=== PATIENT | male | born 1985 | race Caucasian/White ===

== ENCOUNTER 2017-11-28 10:07 | Inpatient (IN) | payer OTHER ==
[2017-11-28 10:36] VITALS: BMI 27.2
[2017-11-28] MEDS ORDERED: MAGNESIUM CITRATE 300 ML BOTTLE PO PRN (11:00)
[2017-11-28] MEDS ORDERED: ACETAMINOPHEN 325 MG TABLET (FP) PO PRN (11:00)
[2017-11-28] MEDS ORDERED: MENTHOL/PHENOL 1 EACH UD MM PRN (11:00)
[2017-11-28] MEDS ORDERED: MAG HYDROX/AL HYDROX/SIMETH 30 ML UNIT-DOSE CUP PO PRN (11:00)
[2017-11-28] MEDS ORDERED: hydrOXYzine PAMOATE 50 MG CAPSULE (FP) PO PRN (11:00)
[2017-11-28] MEDS ORDERED: IBUPROFEN 400 MG TABLET (FP) PO PRN (11:00)
[2017-11-28] MEDS ORDERED: P-EPHED 60MG/TRIPROLIDI 2.5MG TABLET PO PRN (11:00)
[2017-11-28] MEDS ORDERED: LOPERAMIDE HCL 2 MG CAPSULE PO PRN (11:00)
[2017-11-28] MEDS ORDERED: MAGNESIUM HYDROX 2400MG/30ML ORAL SUSPENSION 30 ML CUP PO PRN (11:00)
[2017-11-28] MEDS ORDERED: guaiFENesin/D-METHORPHAN HB 10 ML UNIT-DOSE CUPS PO PRN (11:00)
[2017-11-28] MEDS ORDERED: NICOTINE POLACRILEX 2 MG GUM BC PRN (11:00)
[2017-11-28] MEDS ORDERED: BENZOCAINE 20 % GEL 9 GM TUBE MM PRN (11:04)
--- NOTE | 2017-11-28 11:09 | HP ---
COWS - Scale Resting Pulse: 1= [place] 81-100 Sweatin=Flushed/Facial Moisture Restless Observation: 1= Difficult to Sit Still Pupil Size: 1= Pupils >than Normal Bone or Joint Aches: 2= Severe Diffuse Aches Runny Nose/ Eye Tearin= Runny Nose/Eyes GI Upset > 30mins: 2= Nausea/Diarrhea Tremor Observation: 1= Tremor [place], Not Seen Yawning Observation: 0= None Anxiety or Irritability: 1=Feels Anxious/Irritable Goose Flesh Skin: 0=Smooth Skin COWS Score: 13 Admission [facility] Chief Complaint: Heroin withdrawal symptoms Allergies/Adverse Reactions: Allergies Allergy/AdvReac Type Severity Reaction Status Date / Time No Known Allergies Allergy Verified 11/28/17 10:47 History of Present Illness: Patient present with heroin withdrawal symptoms. Patient started sniffing heroin at age 29 years of age. Sniffs 10 bags daily and also buys non- prescribed percocet 10/325mg. Takes 7-8 tabs of percocet daily. Last time he sniffed heroin was last evening at 7pm. Last time he took percocet was 2 days ago. Denies history of seizures. PMH includes depression, asthma, allergies and insomnia. Patient attempted detox in [facility] a few months ago. Relapsed one month after discharge. Denies SI/HI and suicide attempts. Exam Limitations: No Limitations - Ebola screening Have you traveled outside of the country in the last 21 days: No Have you had contact with anyone from an Ebola affected area: No Have you been sick,other than usual withdrawal symptoms: No Do you have a fever: No - Review of Systems Constitutional: Chills, Night Sweats, Changes in sleep EENT: reports: Nose Congestion, Mouth Pain (+toothache, no abscess or redness/ inflammation) Respiratory: reports: No Symptoms reported Cardiac: reports: No Symptoms Reported GI: reports: Nausea, Poor Appetite, Poor Fluid Intake, Abdominal cramping : reports: No Symptoms Reported Musculoskeletal: reports: Back Pain, Joint Pain, Muscle Pain Integumentary: reports: Flushing, Sweating Neuro: reports: Headache, Tremors Endocrine: reports: No Symptoms Reported Hematology: reports: No Symptoms Reported Psychiatric: reports: Orientated x3, Anxious, Depressed Patient History - Patient Medical History Hx Anemia: No Hx Asthma: Yes Hx Chronic Obstructive Pulmonary Disease (COPD): No Hx Cancer: No Hx Cardiac Disorders: No Hx Congestive Heart Failure: No Hx Hypertension: No Hx Hypercholesterolemia: No Hx Pacemaker: No HX Cerebrovascular Accident: No Hx Seizures: No Hx Dementia: No Hx Diabetes: No Hx Gastrointestinal Disorders: No Hx Liver Disease: No Hx Genitourinary Disorders: No Hx Sexually Transmitted Disorders: No Hx Renal Disease (ESRD): No Hx Thyroid Disease: No Hx Human Immunodeficiency Virus (HIV): No (refused testing, HIV test negative 2017) Hx Hepatitis C: No Hx Depression: Yes Hx Suicide Attempt: No Hx Bipolar Disorder: No Hx Schizophrenia: No - Patient Surgical History Past Surgical History: No - PPD History Previous Implant?: Yes Documented Results: Negative w/o proof Implanted On Prior [facility] Admission?: No PPD to be Administered?: Yes - Smoking Cessation Smoking history: Current every day smoker Have you smoked in the past 12 months: Yes Aproximately how many cigarettes per day: 20 Hx Chewing Tobacco Use: No Initiated information on smoking cessation: Yes 'Breaking Loose' booklet given: 11/28/17 - Substance & Tx. History Hx Alcohol Use: No Hx Substance Use: Yes Substance Use Type: Heroin, Opiates Hx Substance Use Treatment: Yes - Substances Abused Heroin Route: Inhalation Frequency: Daily Amount used: 10 BAGS Age of first use: 29 Date of Last Use: 11/27/17 PERCOCET Route: Oral Frequency: Daily Amount used: 8 10 MG PILLS Age of first use: 25 Date of Last Use: 11/26/17 Family Disease History - Family Disease History Family History: Denies Admission Physical Exam S - Vital Signs Vital Signs: Vital Signs - 24 hr 11/28/17 10:25 Temperature 98 F Pulse Rate 89 Respiratory 20 Rate Blood Pressure 121/79 - Physical General Appearance: Yes: No Apparent Distress, Nourished, Appropriately Dressed , Sweating, Anxious HEENTM: Yes: EOMI, Hearing grossly Normal, Normocephalic, Normal Voice, CAT[place], Pharynx Normal, Nasal Congestion Respiratory: Yes: Chest Non-Tender, Lungs Clear, Normal Breath Sounds, No Respiratory Distress, No Accessory Muscle Use Neck: Yes: No masses,lesions,Nodules, Supple Breast: Yes: Breast Exam Deferred Cardiology: Yes: Regular Rhythm, Regular Rate, S1, S2 Abdominal: Yes: Normal Bowel Sounds, Non Tender, Soft Genitourinary: Yes: Within Normal Limits Back: Yes: Normal Inspection, Muscle Spasm Musculoskeletal: Yes: Gait Steady, Back pain, Muscle Pain Extremities: Yes: Normal Capillary Refill, Normal Inspection, Normal Range of Motion, Non-Tender, Tremors Neurological: Yes: 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 intact, Fully Oriented, Alert, Motor Strength 5/5, Normal Response, Depressed Affect Integumentary: Yes: Normal Color, Warm, Moist Lymphatic: Yes: Within Normal Limits - Diagnostic (1) Opioid dependence with withdrawal Current Visit: Yes Status: Acute (2) Asthma Current Visit: Yes Status: Chronic Qualifiers: Asthma severity: mild Asthma complication type: unspecified (3) Nicotine dependence Current Visit: Yes Status: Chronic Qualifiers: Nicotine product type: cigarettes Substance use status: uncomplicated Qualified Code(s): F17.210 - Nicotine dependence, cigarettes, uncomplicated (4) Anxiety Current Visit: Yes Status: Suspected (5) Insomnia Current Visit: Yes Status: Suspected Qualifiers: Insomnia type: unspecified Qualified Code(s): G47.00 - Insomnia, unspecified (6) Depressed affect Current Visit: Yes Status: Suspected Cleared for Admission [facility] - Detox or Rehab [facility] Level of Care: Medically Managed Detox Regimen/Protocol: Methadone [facility] Breath Alcohol Content Breath Alcohol Content: 0 Urine Drug Screen - Results Drug Screen Negative: No Urine Drug Screen Results: OPI-Opiates, BZO-Benzodiazepines, MTD-Methadone, OXY- Oxycodone
[2017-11-28] MEDS ORDERED: METHADONE HCL 10 MG TABLET (FOR DETOX USE ONLY) PO ONE ×2 (12:00→23:00)
[2017-11-28] MEDS: diazePAM 5 MG TABLET PO PRN ×2 (12:38→19:24)
[2017-11-28] MEDS: FLUTICASONE PROP 0.05% 16 GM NASAL SPRAY NS SCH (12:46)
[2017-11-28 15:13] LABS: ALBUMIN 3.9 g/dl (3.4-5.0); ANION GAP 10 (8-16); BLOOD UREA NITROGEN 15 mg/dL (7-18); CALCIUM 9.2 mg/dL (8.5-10.1); CHLORIDE 104 mmol/L (98-107); CO2 24 mmol/L (21-32); GLUCOSE,RANDOM 122 mg/dL (74-106); POTASSIUM 4.7 mmol/L (3.5-5.1); SODIUM 138 mmol/L (136-145)
[2017-11-28 15:17] LABS: ALK PHOS 86 U/L (45-117); BILIRUBIN,TOTAL 0.7 mg/dL (0.2-1.0); CREATININE 0.8 mg/dL (0.7-1.3); SGOT/AST 26 U/L (15-37); SGPT/ALT 36 U/L (12-78); TOT PROT 7.5 g/dl (6.4-8.2)
[2017-11-28] MEDS: ALBUTEROL SO4 18 GM HFA INHALER IH PRN ×2 (15:29→19:11)
--- NOTE | 2017-11-28 15:38 | CONSULT ---
[facility] Psychiatric Consult - Data Date of interview: 11/28/17 Admission source: [facility] Identifying data: Patient is a 31 year old male, father of three, unemployed (collecting unemployment), and reside with his family. This is patient's first admission to detox at [facility]. Pt. admitted to for opiate dependence. Substance Abuse History: Smoking Cessation. Smoking history: Current every day smoker. Have you smoked in the past 12 months: Yes. Aproximately how many cigarettes per day: 20. Hx Chewing Tobacco Use: No. Initiated information on smoking cessation: Yes. 'Breaking Loose' booklet given: 11/28/17. - Substance & Tx. History. Hx Alcohol Use: No. Hx Substance Use: Yes. Substance Use Type : Heroin, Opiates. Hx Substance Use Treatment: Yes. - Substances Abused. Heroin. Route: Inhalation. Frequency: Daily. Amount used: 10 BAGS. Age of first use: 29. Date of Last Use: 11/27/17. PERCOCET. Route: Oral. Frequency: Daily. Amount used: 8 10 MG PILLS. Age of first use: 25. Date of Last Use: 11/26/17 Medical History: Asthma Psychiatric History: Pt. denies h/o psychiatric hospitalization, outpatient care , and suicide attempt. Pt. reports poor sleep. Physical/Sexual Abuse/Trauma History: Denies. Mental Status Exam - Mental Status Exam Alert and Oriented to: Time, Place, Person Cognitive Function: Good Patient Appearance: Well Groomed Mood: Hopeful Affect: Mood Congruent Patient Behavior: Cooperative Speech Pattern: Clear, Appropriate Voice Loudness: Normal Thought Process: Intact, Goal Oriented Thought Disorder: Not Present Hallucinations: Denies Suicidal Ideation: Denies Homicidal Ideation: Denies Insight/Judgement: Poor Sleep: Poorly Appetite: Fair Muscle strength/Tone: Normal Gait/Station: Normal Psychiatric Findings - Problem List ([place] 1, 2,3) (1) Substance-induced sleep disorder Current Visit: Yes Status: Acute (2) Opioid dependence with withdrawal Current Visit: Yes Status: Acute (3) Asthma Current Visit: Yes Status: Chronic Qualifiers: Asthma severity: mild Asthma complication type: unspecified (4) Nicotine dependence Current Visit: Yes Status: Chronic Qualifiers: Nicotine product type: cigarettes Substance use status: uncomplicated Qualified Code(s): F17.210 - Nicotine dependence, cigarettes, uncomplicated - Initial Treatment Plan Initial Treatment Plan: Psychoeducation provided. Detoxification in provided. Ambien 10mg qhs prn ordered. Benefits and side effects discussed. Pt. made aware of the risk of parasomnia when accepting ambien. Verbal consent given.
[2017-11-28 16:11] LABS: HEMATOCRIT 43.4 % (35.4-49); HEMOGLOBIN 14.2 GM/dL (11.7-16.9); MCH 28.7 pg (25.7-33.7); MCHC 32.8 g/dl (32.0-35.9); MEAN CELL VOLUME 87.6 fl (80-96); MEAN PLT VOLUME 8.3 fl (7.5-11.1); PLATELET COUNT 290 K/MM3 (134-434); RBC 4.95 M/mm3 (4.00-5.60); RDW 14.4 % (11.9-15.9); WHITE BLOOD COUNT 7.6 K/mm3 (4.0-10.0)
[2017-11-28] MEDS: ALBUTEROL SO4 0.083% IH SOL 2.5 MG/3 ML VIAL.NEB. NEB PRN (19:27)
[2017-11-28 19:47] LABS: URINE APPEARANCE CLEAR; URINE BILIRUBIN NEGATIVE (<2.0 mg/dL); URINE COLOR DKYELLOW; URINE GLUCOSE (UA) NEGATIVE (NEGATIVE); URINE KETONE NEGATIVE (NEGATIVE); URINE LEUK ESTERASE NEGATIVE (NEGATIVE); URINE NITRITE NEGATIVE (NEGATIVE); URINE PROTEIN NEGATIVE (NEGATIVE)
[2017-11-28] MEDS ORDERED: MELATONIN 5 MG TABLETS PO PRN (22:00)
[2017-11-28] MEDS: ZOLPIDEM TARTRATE 10 MG TABLET (PARK CARE ONLY) PO PRN (22:34)
[2017-11-28] MEDS: THIAMINE HCL 100 MG TABLET (FP) PO SCH (22:34)
[2017-11-29] MEDS: ALBUTEROL SO4 18 GM HFA INHALER IH PRN ×2 (01:16→22:30)
[2017-11-29] MEDS: diazePAM 5 MG TABLET PO PRN ×4 (01:25→20:12)
[2017-11-29] MEDS: ALBUTEROL SO4 0.083% IH SOL 2.5 MG/3 ML VIAL.NEB. NEB PRN ×2 (02:00→17:00)
[2017-11-29] MEDS ORDERED: METHADONE HCL 10 MG TABLET (FOR DETOX USE ONLY) PO ONE (10:00)
[2017-11-29] MEDS: FLUTICASONE PROP 0.05% 16 GM NASAL SPRAY NS SCH (10:12)
[2017-11-29] MEDS: PRENATAL VITAMINS W/ FOLIC ACID TABLET (FP) PO SCH (10:12)
[2017-11-29] MEDS: NICOTINE 21 MG/24 HOURS TOPICAL PATCH TD SCH (10:13)
[2017-11-29] MEDS ORDERED: cloNIDine HCL 0.1 MG TABLET PO ONE (13:42)
--- NOTE | 2017-11-29 16:41 | PN ---
BHS COWS - Scale Resting Pulse: 1= [place] 81-100 Sweatin= Chills/Flushing Restless Observation: 1= Difficult to Sit Still Pupil Size: 0= Normal to Room Light Bone or Joint Aches: 2= Severe Diffuse Aches Runny Nose/ Eye Tearin= Runny Nose/Eyes GI Upset > 30mins: 2= Nausea/Diarrhea Tremor Observation of Outstretched Hands: 2= Slight Tremor Visible Yawning Observation: 1= 1-2x During Session Anxiety or Irritability: 4=Extreme Anxiety Goose Flesh Skin: 0=Smooth Skin COWS Score: 16 BHS Progress Note (SOAP) Subjective: Interrupted Sleep, Diarrhea, Body Aches, Sweating, H/A, Tremors. Objective: PATIENT A & O X 3, OBSERVED AMBULATING ON UNIT. NO ACUTE DISTRESS. 11/29/17 16:40 Vital Signs Temperature 98.5 F 11/29/17 14:22 Pulse Rate 82 11/29/17 14:22 Respiratory Rate 20 11/29/17 14:22 Blood Pressure 123/80 11/29/17 14:22 O2 Sat by Pulse Oximetry (%) Laboratory Tests 11/28/17 11/28/17 11/28/17 11:13 11:13 11:13 WBC 7.6 RBC 4.95 Hgb 14.2 Hct 43.4 MCV 87.6 MCH 28.7 MCHC 32.8 RDW 14.4 Plt Count 290 MPV 8.3 Sodium 138 Potassium 4.7 Chloride 104 Carbon Dioxide 24 Anion Gap 10 BUN 15 Creatinine 0.8 Creat Clearance w eGFR > 60 Random Glucose 122 H Calcium 9.2 Total Bilirubin 0.7 AST 26 ALT 36 Alkaline Phosphatase 86 Total Protein 7.5 Albumin 3.9 Urine Color Urine Appearance Urine pH Ur Specific [place] Urine Protein Urine Glucose (UA) Urine Ketones Urine Blood Urine Nitrite Urine Bilirubin Urine Urobilinogen Ur Leukocyte Esterase RPR Titer Nonreactive 11/28/17 12:29 WBC RBC Hgb Hct MCV MCH MCHC RDW Plt Count MPV Sodium Potassium Chloride Carbon Dioxide Anion Gap BUN Creatinine Creat Clearance w eGFR Random Glucose Calcium Total Bilirubin AST ALT Alkaline Phosphatase Total Protein Albumin Urine Color Dkyellow Urine Appearance Clear Urine pH 5.0 Ur Specific [place] 1.033 Urine Protein Negative Urine Glucose (UA) Negative Urine Ketones Negative Urine Blood Negative Urine Nitrite Negative Urine Bilirubin Negative Urine Urobilinogen 2.0 Ur Leukocyte Esterase Negative RPR Titer LABS NOTED. Assessment: 11/29/17 16:40 WITHDRAWAL SYMPTOMS. Plan: CONTINUE DETOX. INCREAS EDAILY PO FLUID INTAKE. CLONIDINE, 0.1 MG PO X 1 FOR WITHDRAWAL SYMPTOMS.
[2017-11-29] MEDS: ZOLPIDEM TARTRATE 10 MG TABLET (PARK CARE ONLY) PO PRN (22:30)
[2017-11-29] MEDS: THIAMINE HCL 100 MG TABLET (FP) PO SCH (22:31)
[2017-11-30] MEDS: diazePAM 5 MG TABLET PO PRN ×2 (06:00→10:22)
[2017-11-30 06:18] VITALS: TEMP 98.6
[2017-11-30 09:35] VITALS: BP 136/81; PULSE 92
[2017-11-30] MEDS ORDERED: METHADONE HCL 5 MG TABLET (FOR DETOX USE ONLY) PO ONE (10:00)
[2017-11-30] MEDS: FLUTICASONE PROP 0.05% 16 GM NASAL SPRAY NS SCH (10:21)
[2017-11-30] MEDS: PRENATAL VITAMINS W/ FOLIC ACID TABLET (FP) PO SCH (10:21)
[2017-11-30] MEDS: NICOTINE 21 MG/24 HOURS TOPICAL PATCH TD SCH (10:22)
--- NOTE | 2017-11-30 12:59 | PN ---
BHS Progress Note (SOAP) Subjective: C/O NASAL CONGEDSTION NAUSEA DIARRHEA MUSCLE ACHES DURING ROUNDS. AFTER MEDICATIONS, PT REPORTED TO THE NURSE HE DOES NOT WANT TO BE HERE ANY MORE. Objective: 11/30/17 12:59 Vital Signs 11/30/17 11/30/17 06:17 09:34 Temperature 98.6 F 98.6 F Pulse Rate 82 92 H Respiratory 18 20 Rate Blood Pressure 115/70 136/81 Laboratory Tests 11/28/17 11/28/17 11/28/17 11:13 11:13 11:13 WBC 7.6 RBC 4.95 Hgb 14.2 Hct 43.4 MCV 87.6 MCH 28.7 MCHC 32.8 RDW 14.4 Plt Count 290 MPV 8.3 Sodium 138 Potassium 4.7 Chloride 104 Carbon Dioxide 24 Anion Gap 10 BUN 15 Creatinine 0.8 Creat Clearance w eGFR > 60 Random Glucose 122 H Calcium 9.2 Total Bilirubin 0.7 AST 26 ALT 36 Alkaline Phosphatase 86 Total Protein 7.5 Albumin 3.9 Urine Color Urine Appearance Urine pH Ur Specific [place] Urine Protein Urine Glucose (UA) Urine Ketones Urine Blood Urine Nitrite Urine Bilirubin Urine Urobilinogen Ur Leukocyte Esterase RPR Titer Nonreactive 11/28/17 12:29 WBC RBC Hgb Hct MCV MCH MCHC RDW Plt Count MPV Sodium Potassium Chloride Carbon Dioxide Anion Gap BUN Creatinine Creat Clearance w eGFR Random Glucose Calcium Total Bilirubin AST ALT Alkaline Phosphatase Total Protein Albumin Urine Color Dkyellow Urine Appearance Clear Urine pH 5.0 Ur Specific [place] 1.033 Urine Protein Negative Urine Glucose (UA) Negative Urine Ketones Negative Urine Blood Negative Urine Nitrite Negative Urine Bilirubin Negative Urine Urobilinogen 2.0 Ur Leukocyte Esterase Negative RPR Titer Assessment: 11/30/17 13:00 WITHDRAWAL SX Plan: PT SIGNED OUT AMA
--- NOTE | 2017-11-30 13:01 | PN ---
BHS COWS - Scale Resting Pulse: 1= [place] 81-100 Sweatin= Chills/Flushing Restless Observation: 3= Extraneous Movement Pupil Size: 0= Normal to Room Light Bone or Joint Aches: 4=Acute Joint/Muscle Pain Runny Nose/ Eye Tearin= Nasal Congestion GI Upset > 30mins: 3= Vomiting/Diarrhea Tremor Observation of Outstretched Hands: 2= Slight Tremor Visible Yawning Observation: 1= 1-2x During Session Anxiety or Irritability: 2=Irritable/Anxious Goose Flesh Skin: 0=Smooth Skin COWS Score: 18
--- NOTE | 2017-11-30 13:07 | DS ---
[facility] Detox Discharge Summary Admission Date: 11/28/17 Discharge Date: 11/30/17 - History Present History: Opioid Dependence Additional Comments: PT SIGNED OUT AMA. DECLINED TO CONTINUE DETOX. ALERT O X 3. Pertinent Past History: PLEASE SEE DX BELOW - Physical Exam Results Vital Signs: Vital Signs Temperature 98.6 F 11/30/17 09:34 Pulse Rate 92 H 11/30/17 09:34 Respiratory Rate 20 11/30/17 09:34 Blood Pressure 136/81 11/30/17 09:34 O2 Sat by Pulse Oximetry (%) Pertinent Admission Physical Exam Findings: WITHDRAWAL SX Laboratory Tests 11/28/17 11/28/17 11/28/17 11:13 11:13 11:13 WBC 7.6 RBC 4.95 Hgb 14.2 Hct 43.4 MCV 87.6 MCH 28.7 MCHC 32.8 RDW 14.4 Plt Count 290 MPV 8.3 Sodium 138 Potassium 4.7 Chloride 104 Carbon Dioxide 24 Anion Gap 10 BUN 15 Creatinine 0.8 Creat Clearance w eGFR > 60 Random Glucose 122 H Calcium 9.2 Total Bilirubin 0.7 AST 26 ALT 36 Alkaline Phosphatase 86 Total Protein 7.5 Albumin 3.9 Urine Color Urine Appearance Urine pH Ur Specific [place] Urine Protein Urine Glucose (UA) Urine Ketones Urine Blood Urine Nitrite Urine Bilirubin Urine Urobilinogen Ur Leukocyte Esterase RPR Titer Nonreactive 11/28/17 12:29 WBC RBC Hgb Hct MCV MCH MCHC RDW Plt Count MPV Sodium Potassium Chloride Carbon Dioxide Anion Gap BUN Creatinine Creat Clearance w eGFR Random Glucose Calcium Total Bilirubin AST ALT Alkaline Phosphatase Total Protein Albumin Urine Color Dkyellow Urine Appearance Clear Urine pH 5.0 Ur Specific [place] 1.033 Urine Protein Negative Urine Glucose (UA) Negative Urine Ketones Negative Urine Blood Negative Urine Nitrite Negative Urine Bilirubin Negative Urine Urobilinogen 2.0 Ur Leukocyte Esterase Negative RPR Titer - Treatment Hospital Course: Discharged Condition Good - Medication Discharge Medications: Ambulatory Orders Albuterol Sulfate Inhaler - [Ventolin Hfa Inhaler -] 2 inh PO Q4H PRN 11/28/17 - AMA Did Patient Leave Against Medical Advice: Yes (AMA)
[2017-12-01] MEDS ORDERED: METHADONE HCL 5 MG TABLET (FOR DETOX USE ONLY) PO ONE (10:00)
--- NOTE | 2017-12-01 22:16 | EKG ---
Test Reason : Blood Pressure : / mmHG Vent. Rate : 080 BPM Atrial Rate : 080 BPM P-R Int : 144 ms QRS Dur : 076 ms QT Int : 366 ms P-R-T Axes : 066 066 057 degrees QTc Int : 422 ms NORMAL SINUS RHYTHM NORMAL ECG NO PREVIOUS ECGS AVAILABLE Confirmed by DAYAN KULKARNI MD ([id number]) on 12/01/2017 10:16:41 PM Referred By: Confirmed By:DAYAN KULKARNI MD
[2017-12-02] MEDS ORDERED: METHADONE HCL 10 MG TABLET (FOR DETOX USE ONLY) PO ONE (10:00)
[2017-12-03] MEDS ORDERED: METHADONE HCL 5 MG TABLET (FOR DETOX USE ONLY) PO ONE (06:00)
== END 2017-11-30 12:10 | disposition left against medical advice (07) | DRG 770 ==
LOC: YASAS 10:07 → Y3N 11:16
PROVIDERS: ADMIT Family Medicine Addiction Medicine; ATTEND Family Medicine Addiction Medicine
PROC: HZ2ZZZZ Detoxification Services for Substance Abuse Treatment (ICD-10-PCS; principal; 2017-11-28)
DX: F11.23 Opioid dependence with withdrawal (principal); F17.210 Nicotine dependence, cigarettes, uncomplicated; F41.9 Anxiety disorder, unspecified; F32.9 Major depressive disorder, single episode, unspecified; F19.282 Other psychoactive substance dependence with psychoactive substance-induced sleep disorder; J45.998 Other asthma; G47.00 Insomnia, unspecified
CPT/HCPCS: 36415; 80053; 81003; 85027; 86593; 93005; 93010; 94640; J0735

== ENCOUNTER 2017-12-31 13:14 | Inpatient (IN) | payer OTHER ==
[2017-12-31 14:00] VITALS: BMI 27.2
--- NOTE | 2017-12-31 14:29 | HP ---
[facility] Rehab Assess/Revision - Admission History Admitted to Rehab from: [facility] Date of Admission to Rehab: 12/21/17 - Vital signs Vital Signs: Vital Signs Period Temp Pulse Resp BP Sys/Mckenna Pulse Ox Last 24 Hr 98.7 F 97 18 137/80 - Findings Detox History & Physical reviewed: Yes Concur with findings: Yes Comments/Additional Findings: for rehab as protocol Inpatient Rehab Admission - Initial Determination Are CD services needed?: Yes Free of communicable disease: Yes Not in need of hospitalization: Yes - Rehab Admission Criteria Previous failed treatment: Yes Poor recovery environment: Yes Comorbidities: Yes Lacks judgement: No Patient is meeting Inpatient Rehab admission criteria:: Yes
[2017-12-31] MEDS ORDERED: LOPERAMIDE HCL 2 MG CAPSULE PO PRN (14:30)
[2017-12-31] MEDS ORDERED: guaiFENesin/D-METHORPHAN HB 10 ML UNIT-DOSE CUPS PO PRN (14:30)
[2017-12-31] MEDS ORDERED: MAG HYDROX/AL HYDROX/SIMETH 30 ML UNIT-DOSE CUP PO PRN (14:30)
[2017-12-31] MEDS ORDERED: MAGNESIUM HYDROX 2400MG/30ML ORAL SUSPENSION 30 ML CUP PO PRN (14:30)
[2017-12-31] MEDS ORDERED: P-EPHED 60MG/TRIPROLIDI 2.5MG TABLET PO PRN (14:30)
[2017-12-31] MEDS ORDERED: MAGNESIUM CITRATE 300 ML BOTTLE PO PRN (14:30)
[2017-12-31] MEDS ORDERED: ACETAMINOPHEN 325 MG TABLET (FP) PO PRN (14:30)
[2017-12-31] MEDS ORDERED: MENTHOL/PHENOL 1 EACH UD MM PRN (14:30)
[2017-12-31] MEDS ORDERED: IBUPROFEN 400 MG TABLET (FP) PO PRN (14:30)
[2017-12-31] MEDS ORDERED: ALBUTEROL SO4 8 GM HFA INHALER IH PRN (14:31)
[2017-12-31] MEDS: THIAMINE HCL 100 MG TABLET (FP) PO SCH (21:47)
[2017-12-31] MEDS ORDERED: QUEtiapine FUMARATE 100 MG TABLET (FP) PO ONE (22:00)
[2017-12-31] MEDS ORDERED: MELATONIN 5 MG TABLETS PO PRN (22:00)
--- NOTE | 2018-01-01 09:58 | HP ---
Psychiatrist Admission - Data Date of interview: 01/01/18 Admission source: [facility] Identifying data: This is the first [facility] admission for this 32 years old male, father of 2 children, unemployedreceiving unemployment benefit, domiciled living with family Medical History: Significant for bronchial asthma. Smokes cigarettes 1 ppd Psychiatric History: Denies history of previous psychiatric treatment Physical/Sexual Abuse/Trauma History: Denies history of emotional, physical or sexual abuse as well as DV relationship Additional Comment: Reports history of 3 previous misdemenor arrests. Denies being on probation Vital Signs: Vital Signs - 24 hr 12/31/17 01/01/18 01/01/18 13:50 00:30 03:30 Temperature 98.7 F Pulse Rate 97 H Respiratory 18 18 16 Rate Blood Pressure 137/80 01/01/18 07:06 Temperature 97.9 F Pulse Rate 88 Respiratory 20 Rate Blood Pressure 130/84 Allergies/Adverse Reactions: Allergies Allergy/AdvReac Type Severity Reaction Status Date / Time No Known Allergies Allergy Verified 12/31/17 13:37 Date of last physical exam: 12/25/17 Concur with the findings of this exam: Yes - Substance Abuse/Tx History Hx Alcohol Use: No Hx Substance Use: Yes Substance Use Type: Heroin (Started using heroin at age 28, consumes 10-15 bags daily. Last used on 12/24/17) Hx Substance Use Treatment: Yes (2 previous inpt detox [facility]) Mental Status Exam - Mental Status Exam Alert and Oriented to: Time, Place, Person Cognitive Function: Fair Patient Appearance: Well Groomed Mood: Anxious Affect: Appropriate Patient Behavior: Cooperative Speech Pattern: Clear Voice Loudness: Normal Thought Process: Intact, Goal Oriented Thought Disorder: Not Present Hallucinations: Denies Suicidal Ideation: Denies Homicidal Ideation: Denies Insight/Judgement: Fair Sleep: Poorly Appetite: Good Muscle strength/Tone: Normal Gait/Station: Normal Psychiatric Findings - Problem List ([place] 1, 2,3) (1) Opioid dependence Current Visit: Yes Status: Acute (2) Nicotine dependence Current Visit: No Status: Chronic Qualifiers: Nicotine product type: cigarettes Substance use status: in withdrawal Qualified Code(s): F17.213 - Nicotine dependence, cigarettes, with withdrawal (3) Substance-induced sleep disorder Current Visit: Yes Status: Acute (4) Substance-induced anxiety disorder Current Visit: Yes Status: Acute (5) Asthma Current Visit: No Status: Chronic Qualifiers: Asthma severity: mild Asthma persistence: intermittent Asthma complication type: unspecified Qualified Code(s): J45.20 - Mild intermittent asthma, uncomplicated - Initial Treatment Plan Initial Treatment Plan: 1) Start Belsomra 10 mg po HS prn for insomnia. 2) Monitor progress
[2018-01-01] MEDS: LORATADINE 10 MG TABLET PO SCH (10:20)
[2018-01-01] MEDS: PRENATAL VITAMINS W/ FOLIC ACID TABLET (FP) PO SCH (10:20)
[2018-01-01] MEDS: NICOTINE 21 MG/24 HOURS TOPICAL PATCH TD SCH (10:22)
[2018-01-01] MEDS: THIAMINE HCL 100 MG TABLET (FP) PO SCH (21:40)
[2018-01-02] MEDS: NICOTINE POLACRILEX 2 MG GUM BUC PRN (10:59)
[2018-01-02] MEDS: PRENATAL VITAMINS W/ FOLIC ACID TABLET (FP) PO SCH (10:59)
[2018-01-02] MEDS: LORATADINE 10 MG TABLET PO SCH (10:59)
[2018-01-02] MEDS: NICOTINE 21 MG/24 HOURS TOPICAL PATCH TD SCH (10:59)
[2018-01-02] MEDS: THIAMINE HCL 100 MG TABLET (FP) PO SCH (21:43)
[2018-01-02] MEDS: SUVOREXANT 10 MG TABLET PO PRN (21:44)
[2018-01-02] MEDS: hydrOXYzine PAMOATE 50 MG CAPSULE (FP) PO PRN (21:45)
[2018-01-03] MEDS: hydrOXYzine PAMOATE 50 MG CAPSULE (FP) PO PRN ×3 (06:31→20:43)
[2018-01-03] MEDS: NICOTINE 21 MG/24 HOURS TOPICAL PATCH TD SCH (09:54)
[2018-01-03] MEDS: LORATADINE 10 MG TABLET PO SCH (09:54)
[2018-01-03] MEDS: PRENATAL VITAMINS W/ FOLIC ACID TABLET (FP) PO SCH (09:54)
[2018-01-03] MEDS: NICOTINE POLACRILEX 2 MG GUM BUC PRN (09:55)
[2018-01-03] MEDS: THIAMINE HCL 100 MG TABLET (FP) PO SCH (22:11)
[2018-01-03] MEDS: SUVOREXANT 10 MG TABLET PO PRN (22:12)
[2018-01-04 07:13] VITALS: BP 139/88; PULSE 90; TEMP 97.6
[2018-01-04] MEDS: LORATADINE 10 MG TABLET PO SCH (10:00)
[2018-01-04] MEDS: hydrOXYzine PAMOATE 50 MG CAPSULE (FP) PO PRN (10:00)
[2018-01-04] MEDS: PRENATAL VITAMINS W/ FOLIC ACID TABLET (FP) PO SCH (10:00)
[2018-01-04] MEDS: NICOTINE 21 MG/24 HOURS TOPICAL PATCH TD SCH (10:01)
== END 2018-01-04 12:52 | disposition left against medical advice (07) | DRG 770 ==
LOC: YASAS 13:14 → Y3W 13:16
PROVIDERS: ADMIT Psychiatry & Neurology Psychiatry; ATTEND Psychiatry & Neurology Psychiatry
PROC: HZ42ZZZ Group Counseling for Substance Abuse Treatment, Cognitive-Behavioral (ICD-10-PCS; principal; 2017-12-31)
DX: F11.20 Opioid dependence, uncomplicated (principal); F17.213 Nicotine dependence, cigarettes, with withdrawal; F19.280 Other psychoactive substance dependence with psychoactive substance-induced anxiety disorder; F19.282 Other psychoactive substance dependence with psychoactive substance-induced sleep disorder; J45.20 Mild intermittent asthma, uncomplicated

== ENCOUNTER 2018-08-25 10:19 | Inpatient (IN) | payer OTHER ==
[2018-08-25 12:54] VITALS: BMI 27.2
--- NOTE | 2018-08-25 13:26 | HP ---
COWS - Scale Resting Pulse: 1= [place] 81-100 Sweatin= Chills/Flushing Restless Observation: 1= Difficult to Sit Still Pupil Size: 1= Pupils >than Normal Bone or Joint Aches: 1= Mild Discomfort Runny Nose/ Eye Tearin= Constantly Teary/Runny GI Upset > 30mins: 3= Vomiting/Diarrhea Tremor Observation: 2= Slight Tremor Visible Yawning Observation: 0= None Anxiety or Irritability: 2=Irritable/Anxious Goose Flesh Skin: 0=Smooth Skin COWS Score: 16 CIWA Score - Admission Criteria OASAS Guidelines: Admission for Medically Managed Detox: Requires at least one of the followin. CIWA greater than 12 2. Seizures within the past 24 hours 3. Delirium tremens within the past 24 hours 4. Hallucinations within the past 24 hours 5. Acute intervention needed for co occurring medical disorder 6. Acute intervention needed for co occurring psychiatric disorder 7. Severe withdrawal that cannot be handled at a lower level of care (continued vomiting, continued diarrhea, abnormal vital signs) requiring intravenous medication and/or fluids 8. Admission [facility] Chief Complaint: " heroin detox" Allergies/Adverse Reactions: Allergies Allergy/AdvReac Type Severity Reaction Status Date / Time No Known Allergies Allergy Verified 08/25/18 12:49 History of Present Illness: 32 yo male with hx of nicotine and heroin (nasal) dependence is here seeking detox, this one of multiple admission. Reports occasional use of street buprenorphine, last use a week ago, unknown dose. Last detox [facility] February 2018. PMHX:asthma and anxiety. Denies suicidal / homicidal ideation or hx of suicide attempts. Denies hx of overdose, blackouts or seizure. Longest period of sobriety one year. Exam Limitations: No Limitations - Ebola screening Have you traveled outside of the country in the last 21 days: No Have you had contact with anyone from an Ebola affected area: No Have you been sick,other than usual withdrawal symptoms: No Do you have a fever: No - Review of Systems Constitutional: Chills, Loss of Appetite, Changes in sleep, Unexplained wgt Loss (10 lbs) EENT: reports: Tearing, Nose Congestion (runny nose), Dental Problems ( dentalgia x 1 year) Respiratory: reports: No Symptoms reported Cardiac: reports: No Symptoms Reported GI: reports: Diarrhea (since yesterday), Poor Appetite, Poor Fluid Intake, Vomiting, Abdominal cramping Musculoskeletal: reports: Back Pain, Joint Pain Integumentary: reports: No Symptoms Reported Neuro: reports: Headache Endocrine: reports: Increased Thirst Hematology: reports: No Symptoms Reported Psychiatric: reports: Orientated x3, Anxious Other Systems: Reviewed and Negative Patient History - Patient Medical History Hx Anemia: No Hx Asthma: Yes Hx Chronic Obstructive Pulmonary Disease (COPD): No Hx Cancer: No Hx Cardiac Disorders: No Hx Congestive Heart Failure: No Hx Hypertension: No Hx Hypercholesterolemia: No Hx Pacemaker: No HX Cerebrovascular Accident: No Hx Seizures: No Hx Dementia: No Hx Diabetes: No Hx Gastrointestinal Disorders: No Hx Liver Disease: No Hx Genitourinary Disorders: No Hx Sexually Transmitted Disorders: No Hx Renal Disease (ESRD): No Hx Thyroid Disease: No Hx Human Immunodeficiency Virus (HIV): No (refused testing, HIV test negative 2017) Hx Hepatitis C: No Hx Depression: No Hx Suicide Attempt: No Hx Bipolar Disorder: No Hx Schizophrenia: No - Patient Surgical History Past Surgical History: No Hx Neurologic Surgery: No Hx Cataract Extraction: No Hx Cardiac Surgery: No Hx Lung Surgery: No Hx Breast Surgery: No Hx Breast Biopsy: No Hx Abdominal Surgery: No Hx Appendectomy: No Hx Cholecystectomy: No Hx Genitourinary Surgery: No Hx Section: No Hx Orthopedic Surgery: No Anesthesia Reaction: No - PPD History Previous Implant?: No Date: 11/30/17 Results: 0 mm PPD to be Administered?: Yes - Reproductive History Patient : No - Smoking Cessation Smoking history: Current every day smoker Have you smoked in the past 12 months: Yes Aproximately how many cigarettes per day: 20 Cigars Per Day: 0 Hx Chewing Tobacco Use: No Initiated information on smoking cessation: Yes 'Breaking Loose' booklet given: 08/25/18 - Substance & Tx. History Hx Alcohol Use: No Hx Substance Use: Yes Substance Use Type: Heroin Hx Substance Use Treatment: Yes (Detox [facility] February 2018) - Substances Abused Heroin Route: Inhalation Frequency: Daily Amount used: 5 -6 bags Age of first use: 28 Date of Last Use: 08/24/18 Family Disease History - Family Disease History Family History: Denies Admission Physical Exam [facility] - Vital Signs Vital Signs: Vital Signs - 24 hr 08/25/18 12:40 Temperature 99.3 F Pulse Rate 90 Respiratory 20 Rate Blood Pressure 148/86 - Physical General Appearance: Yes: Appropriately Dressed, Mild Distress, Sweating, Anxious HEENTM: Yes: EOMI, Hearing grossly Normal, Normal ENT Inspection, Normocephalic , Normal Voice, CATALINO, Pharynx Normal, Tm's normal, Rhinorrhea Respiratory: Yes: Chest Non-Tender, Lungs Clear, Normal Breath Sounds, No Respiratory Distress, No Accessory Muscle Use Neck: Yes: Within Normal Limits Breast: Yes: Breast Exam Deferred Cardiology: Yes: Regular Rhythm, Regular Rate Abdominal: Yes: Normal Bowel Sounds, Non Tender, Flat Genitourinary: Yes: Within Normal Limits Back: Yes: Within Normal Limits Musculoskeletal: Yes: full range of Motion, Gait Steady, Pelvis Stable, Back pain Extremities: Yes: Normal Capillary Refill, Normal Inspection, Normal Range of Motion, Non-Tender 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, Fully Oriented, Alert, Motor Strength 5/5, Normal Mood/Affect (anxious) Integumentary: Yes: Normal Color, Warm, Diaphoresis Lymphatic: Yes: Within Normal Limits - Diagnostic (1) Nicotine dependence Current Visit: Yes Status: Acute Qualifiers: Nicotine product type: cigarettes Substance use status: in withdrawal Qualified Code(s): F17.213 - Nicotine dependence, cigarettes, with withdrawal (2) Opioid dependence with withdrawal Current Visit: Yes Status: Acute (3) Weight decrease Current Visit: Yes Status: Acute (4) Asthma Current Visit: Yes Status: Chronic Qualifiers: Asthma severity: mild Asthma persistence: intermittent Asthma complication type: unspecified Qualified Code(s): J45.20 - Mild intermittent asthma, uncomplicated (5) Anxiety Current Visit: Yes Status: Acute Cleared for Admission [facility] - Detox or Rehab [facility] Level of Care: Medically Managed Detox Regimen/Protocol: Methadone [facility] Breath Alcohol Content Breath Alcohol Content: 0 Urine Drug Screen - Results Urine Drug Screen Results: OPI-Opiates, BZO-Benzodiazepines, FEN-Fentanyl, BUP- Suboxone Inpatient Rehab Admission - Rehab Decision to Admit Inpatient rehab admission?: No
[2018-08-25] MEDS ORDERED: ALBUTEROL SO4 8 GM HFA INHALER IH PRN (13:32)
[2018-08-25] MEDS ORDERED: ONDANSETRON *ODT* 4 MG TABLET SL PRN (13:38)
[2018-08-25] MEDS ORDERED: IBUPROFEN 400 MG TABLET (FP) PO PRN (13:38)
[2018-08-25] MEDS ORDERED: METHOCARBAMOL 500 MG TABLET PO PRN (13:38)
[2018-08-25] MEDS ORDERED: MAGNESIUM HYDROX 2400MG/30ML ORAL SUSPENSION 30 ML CUP PO PRN (13:38)
[2018-08-25] MEDS ORDERED: BISMUTH SUBSALICYLATE 524 MG/30 ML UD PO PRN (13:38)
[2018-08-25] MEDS ORDERED: guaiFENesin 200 MG/10 ML 10 ML UNIT-DOSE CUPS PO PRN (13:38)
[2018-08-25] MEDS ORDERED: MENTHOL/PHENOL 1 EACH UD MM PRN (13:38)
[2018-08-25] MEDS ORDERED: P-EPHED 60MG/TRIPROLIDI 2.5MG TABLET PO PRN (13:38)
[2018-08-25] MEDS ORDERED: ACETAMINOPHEN 325 MG TABLET (FP) PO PRN ×2 (13:38)
[2018-08-25] MEDS ORDERED: MAG HYDROX/AL HYDROX/SIMETH 30 ML UNIT-DOSE CUP PO PRN (13:38)
[2018-08-25] MEDS ORDERED: NICOTINE POLACRILEX 2 MG GUM BUC PRN (13:38)
[2018-08-25] MEDS ORDERED: MAGNESIUM CITRATE 300 ML BOTTLE PO PRN (13:38)
[2018-08-25] MEDS ORDERED: METHADONE HCL 10 MG TABLET (FOR DETOX USE ONLY) PO ONE ×2 (14:00→23:00)
[2018-08-25] MEDS: cloNIDine HCL 0.1 MG TABLET PO PRN (22:11)
[2018-08-25] MEDS: hydrOXYzine PAMOATE 25 MG CAPSULE (FP) PO PRN (22:11)
[2018-08-25] MEDS: THIAMINE HCL 100 MG TABLET (FP) PO SCH (22:15)
[2018-08-26] MEDS ORDERED: METHADONE HCL 5 MG TABLET (FOR DETOX USE ONLY) PO ONE (10:00)
[2018-08-26] MEDS: PRENATAL VITAMINS W/ FOLIC ACID TABLET (FP) PO SCH (10:49)
[2018-08-26] MEDS: NICOTINE 21 MG/24 HOURS TOPICAL PATCH TD SCH (10:49)
[2018-08-26] MEDS: hydrOXYzine PAMOATE 25 MG CAPSULE (FP) PO PRN (10:51)
[2018-08-26 11:01] LABS: HEMATOCRIT 41.2 % (35.4-49); HEMOGLOBIN 13.8 GM/dL (11.7-16.9); MCH 29.9 pg (25.7-33.7); MCHC 33.5 g/dl (32.0-35.9); MEAN CELL VOLUME 89.1 fl (80-96); MEAN PLT VOLUME 8.8 fl (7.5-11.1); PLATELET COUNT 265 K/MM3 (134-434); RBC 4.63 M/mm3 (4.00-5.60); WHITE BLOOD COUNT 7.4 K/mm3 (4.0-10.0)
[2018-08-26 11:30] LABS: ALBUMIN 4.1 g/dl (3.4-5.0); ALK PHOS 87 U/L (45-117); ANION GAP 6 MMOL/L (8-16); BILIRUBIN,TOTAL 0.7 mg/dL (0.2-1); BLOOD UREA NITROGEN 17 mg/dL (7-18); CHLORIDE 104 mmol/L (98-107); CO2 29 mmol/L (21-32); GLUCOSE,RANDOM 146 mg/dL (74-106); POTASSIUM 3.8 mmol/L (3.5-5.1); SGOT/AST 16 U/L (15-37); SGPT/ALT 23 U/L (13-61); SODIUM 138 mmol/L (136-145); TOT PROT 7.5 g/dl (6.4-8.2)
--- NOTE | 2018-08-26 15:04 | PN ---
[facility] COWS - Scale Resting Pulse: 0= [place] 80 or Below Sweatin= No chills or Flushing Restless Observation: 0= Sits Still Pupil Size: 0= Normal to Room Light Bone or Joint Aches: 1= Mild Discomfort Runny Nose/ Eye Tearin= Nasal Congestion GI Upset > 30mins: 1= Stomach Cramp Tremor Observation of Outstretched Hands: 0= None Yawning Observation: 0= None Anxiety or Irritability: 1=Feels Anxious/Irritable Goose Flesh Skin: 0=Smooth Skin COWS Score: 4 BHS Progress Note (SOAP) Subjective: pt states feeling fine. requesting ensure. O Vital Signs - 24 hr 08/25/18 08/25/18 08/26/18 17:25 21:45 00:30 Temperature 99.5 F 98.2 F Pulse Rate 89 65 Respiratory 18 18 18 Rate Blood Pressure 137/86 116/77 08/26/18 08/26/18 08/26/18 03:30 07:29 09:37 Temperature 97.5 F L 97.9 F Pulse Rate 61 68 Respiratory 18 18 18 Rate Blood Pressure 112/64 105/63 08/26/18 14:11 Temperature 99.1 F Pulse Rate 88 Respiratory 18 Rate Blood Pressure 129/86 Laboratory Tests 08/26/18 08/26/18 08/26/18 06:30 06:30 06:30 WBC 7.4 RBC 4.63 Hgb 13.8 Hct 41.2 MCV 89.1 MCH 29.9 MCHC 33.5 RDW 14.0 Plt Count 265 D MPV 8.8 Sodium 138 Potassium 3.8 Chloride 104 Carbon Dioxide 29 Anion Gap 6 L BUN 17 Creatinine 1.0 Creat Clearance w eGFR 86.60 Random Glucose 146 H Calcium 9.0 Total Bilirubin 0.7 AST 16 ALT 23 Alkaline Phosphatase 87 Total Protein 7.5 Albumin 4.1 RPR Titer Nonreactive a/p: continue heroin detox protocol, ensure ordered
[2018-08-26] MEDS: THIAMINE HCL 100 MG TABLET (FP) PO SCH (23:06)
[2018-08-27] MEDS: MELATONIN 5 MG TABLETS PO PRN ×2 (00:32→22:14)
[2018-08-27] MEDS ORDERED: METHADONE HCL 10 MG TABLET (FOR DETOX USE ONLY) PO ONE (10:00)
[2018-08-27] MEDS: PRENATAL VITAMINS W/ FOLIC ACID TABLET (FP) PO SCH (10:55)
[2018-08-27] MEDS: NICOTINE 21 MG/24 HOURS TOPICAL PATCH TD SCH (10:55)
[2018-08-27] MEDS: hydrOXYzine PAMOATE 25 MG CAPSULE (FP) PO PRN (10:56)
--- NOTE | 2018-08-27 12:41 | PN ---
[facility] COWS - Scale Resting Pulse: 0= [place] 80 or Below Sweatin= Chills/Flushing Restless Observation: 3= Extraneous Movement Pupil Size: 1= Pupils >than Normal Bone or Joint Aches: 2= Severe Diffuse Aches Runny Nose/ Eye Tearin= Runny Nose/Eyes GI Upset > 30mins: 2= Nausea/Diarrhea Tremor Observation of Outstretched Hands: 2= Slight Tremor Visible Yawning Observation: 2= >3x During Session Anxiety or Irritability: 2=Irritable/Anxious Goose Flesh Skin: 0=Smooth Skin COWS Score: 17 BHS Progress Note (SOAP) Subjective: alert,irritable,anxious,interrupted sleep,pain in the body and back Objective: 08/27/18 12:40 Vital Signs Temperature 97.9 F 08/27/18 09:55 Pulse Rate 63 08/27/18 09:55 Respiratory Rate 18 08/27/18 09:55 Blood Pressure 124/63 08/27/18 09:55 O2 Sat by Pulse Oximetry (%) 08/27/18 12:40 Laboratory Last Values WBC 7.4 K/mm3 (4.0-10.0) 08/26/18 06:30 RBC 4.63 M/mm3 (4.00-5.60) 08/26/18 06:30 Hgb 13.8 GM/dL (11.7-16.9) 08/26/18 06:30 Hct 41.2 % (35.4-49) 08/26/18 06:30 MCV 89.1 fl (80-96) 08/26/18 06:30 MCH 29.9 pg (25.7-33.7) 08/26/18 06:30 MCHC 33.5 g/dl (32.0-35.9) 08/26/18 06:30 RDW 14.0 % (11.9-15.9) 08/26/18 06:30 Plt Count 265 K/MM3 (134-434) D 08/26/18 06:30 MPV 8.8 fl (7.5-11.1) 08/26/18 06:30 Sodium 138 mmol/L (136-145) 08/26/18 06:30 Potassium 3.8 mmol/L (3.5-5.1) 08/26/18 06:30 Chloride 104 mmol/L (98-107) 08/26/18 06:30 Carbon Dioxide 29 mmol/L (21-32) 08/26/18 06:30 Anion Gap 6 MMOL/L (8-16) L 08/26/18 06:30 BUN 17 mg/dL (7-18) 08/26/18 06:30 Creatinine 1.0 mg/dL (0.55-1.3) 08/26/18 06:30 Creat Clearance w eGFR 86.60 (>60) 08/26/18 06:30 Random Glucose 146 mg/dL (74-106) H 08/26/18 06:30 Calcium 9.0 mg/dL (8.5-10.1) 08/26/18 06:30 Total Bilirubin 0.7 mg/dL (0.2-1) 08/26/18 06:30 AST 16 U/L (15-37) 08/26/18 06:30 ALT 23 U/L (13-61) 08/26/18 06:30 Alkaline Phosphatase 87 U/L (45-117) 08/26/18 06:30 Total Protein 7.5 g/dl (6.4-8.2) 08/26/18 06:30 Albumin 4.1 g/dl (3.4-5.0) 08/26/18 06:30 RPR Titer Nonreactive (NONREACTIVE) 08/26/18 06:30 Assessment: 08/27/18 12:41 withdrawal symptom Plan: continue detox,initial glucose is 146,fasting glucose in am
[2018-08-27] MEDS: THIAMINE HCL 100 MG TABLET (FP) PO SCH (22:13)
[2018-08-27] MEDS: cloNIDine HCL 0.1 MG TABLET PO PRN (22:14)
[2018-08-28] MEDS ORDERED: METHADONE HCL 5 MG TABLET (FOR DETOX USE ONLY) PO ONE (06:00)
--- NOTE | 2018-08-28 09:29 | PN ---
S Progress Note (SOAP) Subjective: alert,no complaint Objective: 08/28/18 09:27 Vital Signs Temperature 97.2 F L 08/28/18 06:00 Pulse Rate 59 L 08/28/18 06:00 Respiratory Rate 18 08/28/18 06:00 Blood Pressure 91/58 L 08/28/18 06:00 O2 Sat by Pulse Oximetry (%) Assessment: 08/28/18 09:28 detox completed, Plan: detox completed,no withdrawal symptom,discharge today
--- NOTE | 2018-08-28 09:33 | DS ---
[facility] Detox Discharge Summary Admission Date: 08/25/18 Discharge Date: 08/28/18 - History Present History: Opioid Dependence Additional Comments: follow up with after care program as arrangement Pertinent Past History: asthma weight loss - Physical Exam Results Vital Signs: Vital Signs Temperature 97.2 F L 08/28/18 06:00 Pulse Rate 59 L 08/28/18 06:00 Respiratory Rate 18 08/28/18 06:00 Blood Pressure 91/58 L 08/28/18 06:00 O2 Sat by Pulse Oximetry (%) Pertinent Admission Physical Exam Findings: withdrawal symptom Vital Signs Temperature 97.2 F L 08/28/18 06:00 Pulse Rate 59 L 08/28/18 06:00 Respiratory Rate 18 08/28/18 06:00 Blood Pressure 91/58 L 08/28/18 06:00 O2 Sat by Pulse Oximetry (%) Laboratory Last Values WBC 7.4 K/mm3 (4.0-10.0) 08/26/18 06:30 RBC 4.63 M/mm3 (4.00-5.60) 08/26/18 06:30 Hgb 13.8 GM/dL (11.7-16.9) 08/26/18 06:30 Hct 41.2 % (35.4-49) 08/26/18 06:30 MCV 89.1 fl (80-96) 08/26/18 06:30 MCH 29.9 pg (25.7-33.7) 08/26/18 06:30 MCHC 33.5 g/dl (32.0-35.9) 08/26/18 06:30 RDW 14.0 % (11.9-15.9) 08/26/18 06:30 Plt Count 265 K/MM3 (134-434) D 08/26/18 06:30 MPV 8.8 fl (7.5-11.1) 08/26/18 06:30 Sodium 138 mmol/L (136-145) 08/26/18 06:30 Potassium 3.8 mmol/L (3.5-5.1) 08/26/18 06:30 Chloride 104 mmol/L (98-107) 08/26/18 06:30 Carbon Dioxide 29 mmol/L (21-32) 08/26/18 06:30 Anion Gap 6 MMOL/L (8-16) L 08/26/18 06:30 BUN 17 mg/dL (7-18) 08/26/18 06:30 Creatinine 1.0 mg/dL (0.55-1.3) 08/26/18 06:30 Creat Clearance w eGFR 86.60 (>60) 08/26/18 06:30 Random Glucose 146 mg/dL (74-106) H 08/26/18 06:30 Calcium 9.0 mg/dL (8.5-10.1) 08/26/18 06:30 Total Bilirubin 0.7 mg/dL (0.2-1) 08/26/18 06:30 AST 16 U/L (15-37) 08/26/18 06:30 ALT 23 U/L (13-61) 08/26/18 06:30 Alkaline Phosphatase 87 U/L (45-117) 08/26/18 06:30 Total Protein 7.5 g/dl (6.4-8.2) 08/26/18 06:30 Albumin 4.1 g/dl (3.4-5.0) 08/26/18 06:30 RPR Titer Nonreactive (NONREACTIVE) 08/26/18 06:30 - Medication Discharge Medications: Ambulatory Orders Albuterol Sulfate Inhaler - [Ventolin HFA Inhaler -] 2 puff IH Q4H PRN #1 inhaler 02/15/18 - Diagnosis (1) Anxiety Current Visit: Yes Status: Acute (2) Nicotine dependence Current Visit: Yes Status: Acute Qualifiers: Nicotine product type: cigarettes Substance use status: in withdrawal Qualified Code(s): F17.213 - Nicotine dependence, cigarettes, with withdrawal (3) Opioid dependence with withdrawal Current Visit: Yes Status: Acute (4) Weight decrease Current Visit: Yes Status: Acute (5) Asthma Current Visit: Yes Status: Chronic Qualifiers: Asthma severity: mild Asthma persistence: intermittent Asthma complication type: unspecified Qualified Code(s): J45.20 - Mild intermittent asthma, uncomplicated (6) Insomnia Current Visit: No Status: Suspected Qualifiers: Insomnia type: unspecified Qualified Code(s): G47.00 - Insomnia, unspecified - AMA Did Patient Leave Against Medical Advice: No
[2018-08-28 09:40] VITALS: BP 140/78; PULSE 69; TEMP 98.1
== END 2018-08-28 09:49 | disposition home or self-care (01) | DRG 773 ==
LOC: YASAS 10:19 → Y6N 15:02
PROVIDERS: ADMIT Surgery; ATTEND Surgery
PROC: HZ2ZZZZ Detoxification Services for Substance Abuse Treatment (ICD-10-PCS; principal; 2018-08-25)
DX: F11.23 Opioid dependence with withdrawal (principal); F17.213 Nicotine dependence, cigarettes, with withdrawal; F41.9 Anxiety disorder, unspecified; J45.909 Unspecified asthma, uncomplicated; G47.00 Insomnia, unspecified; R63.4 Abnormal weight loss; Z68.27 Body mass index [BMI] 27.0-27.9, adult
CPT/HCPCS: 36415; 80053; 85027; 86593; J0735

== ENCOUNTER 2018-12-09 10:26 | Inpatient (IN) | payer OTHER ==
[2018-12-09 11:35] VITALS: BMI 27.7
--- NOTE | 2018-12-09 12:09 | HP ---
COWS - Scale Resting Pulse: 1= [place] 81-100 Sweatin= Chills/Flushing Restless Observation: 3= Extraneous Movement Pupil Size: 0= Normal to Room Light Bone or Joint Aches: 2= Severe Diffuse Aches Runny Nose/ Eye Tearin= Runny Nose/Eyes GI Upset > 30mins: 3= Vomiting/Diarrhea Tremor Observation: 1= Tremor [place], Not Seen Yawning Observation: 2= >3x During Session Anxiety or Irritability: 1=Feels Anxious/Irritable Goose Flesh Skin: 3=Piloerection COWS Score: 19 CIWA Score - Admission Criteria OASAS Guidelines: Admission for Medically Managed Detox: Requires at least one of the followin. CIWA greater than 12 2. Seizures within the past 24 hours 3. Delirium tremens within the past 24 hours 4. Hallucinations within the past 24 hours 5. Acute intervention needed for co occurring medical disorder 6. Acute intervention needed for co occurring psychiatric disorder 7. Severe withdrawal that cannot be handled at a lower level of care (continued vomiting, continued diarrhea, abnormal vital signs) requiring intravenous medication and/or fluids 8. Admission [facility] Chief Complaint: 32 y/o M with PMH asthma, anxiety, who presents for heroin detox. Last use was last night 10 bags. Was used intranasally, no hx IVDA. Uses ~15 bags qd usually. Smokes 15 cigarettes/day x 10 yrs. Longest sobriety 8 months clean from heroin. Was in detox and rehab 2018 at [facility] for heroin. After detox would like to go to rehab at [facility]. No suicide attempts or OD. During this time, pt also complains of 2-3 day hx of R molar/cuspid infection. States that he has trouble with mastication and went to the dentist. Was told that he had a tooth infection and would need to have his tooth removed once the infection clears. Was started on penicillin 500mg QID by his dentist. States he has taken two days of abx. Will give 3 more days of augmentin 875mg BID to complete course. 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 Last use was last night 10 bags. Exam Limitations: No Limitations - Ebola screening Have you traveled outside of the country in the last 21 days: No Have you had contact with anyone from an Ebola affected area: No Do you have a fever: No - Review of Systems Constitutional: Diaphoresis, Night Sweats, Unintentional Wgt. Loss EENT: reports: Nose Congestion Respiratory: reports: Cough, Shortness of Breath, Wheezing Cardiac: reports: No Symptoms Reported GI: reports: Nausea, Vomiting : reports: No Symptoms Reported Musculoskeletal: reports: Muscle Pain Integumentary: reports: No Symptoms Reported Endocrine: reports: No Symptoms Reported Hematology: reports: No Symptoms Reported Psychiatric: reports: No Sypmtoms Reported Patient History - Patient Medical History Hx Anemia: No Hx Asthma: Yes (uses ventolin PRN ) Hx Chronic Obstructive Pulmonary Disease (COPD): No Hx Cancer: No Hx Cardiac Disorders: No Hx Congestive Heart Failure: No Hx Hypertension: No Hx Hypercholesterolemia: No Hx Pacemaker: No HX Cerebrovascular Accident: No Hx Seizures: No Hx Dementia: No Hx Diabetes: No Hx Gastrointestinal Disorders: No Hx Liver Disease: No Hx Genitourinary Disorders: No Hx Sexually Transmitted Disorders: No Hx Renal Disease (ESRD): No Hx Thyroid Disease: No Hx Human Immunodeficiency Virus (HIV): No (refused testing, HIV test negative 2017) Hx Hepatitis C: No Hx Depression: No Hx Suicide Attempt: No Hx Bipolar Disorder: No Hx Schizophrenia: No - Patient Surgical History Past Surgical History: No Hx Neurologic Surgery: No Hx Cataract Extraction: No Hx Cardiac Surgery: No Hx Lung Surgery: No Hx Breast Surgery: No Hx Breast Biopsy: No Hx Abdominal Surgery: No Hx Appendectomy: No Hx Cholecystectomy: No Hx Genitourinary Surgery: No Hx Section: No Hx Orthopedic Surgery: No Hx Hysterectomy: No Anesthesia Reaction: No - PPD History Documented Results: Negative w/o proof Date: 11/30/17 Results: 0 mm PPD to be Administered?: Yes - Reproductive History Patient is a Female of Child Bearing Age (11 -55 yrs old): No - Smoking Cessation Smoking history: Current every day smoker Have you smoked in the past 12 months: Yes Aproximately how many cigarettes per day: 20 Cigars Per Day: 0 Hx Chewing Tobacco Use: No Initiated information on smoking cessation: Yes 'Breaking Loose' booklet given: 12/09/18 - Substance & Tx. History Hx Alcohol Use: No Hx Substance Use: Yes Substance Use Type: Heroin Hx Substance Use Treatment: Yes (detox and rehab 2018) - Substances abused Heroin Substance route: Inhalation Frequency: Daily Amount used: 15 BAGS Age of first use: 28 Date of last use: 12/08/18 Family Disease History - Family Disease History Family History: Denies Admission Physical Exam [facility] - Vital Signs Vital Signs: Vital Signs - 24 hr 12/09/18 12/09/18 11:32 11:56 Temperature 98.7 F 98.7 F Pulse Rate 82 82 Respiratory 18 18 Rate Blood Pressure 128/74 128/74 - Physical General Appearance: Yes: Mild Distress HEENTM: Yes: Within Normal Limits, Other (+R infection lower molar/cuspid, without active drainage. 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 Integumentary: Yes: Dry, Warm Lymphatic: Yes: Within Normal Limits - Diagnostic (1) Anxiety Current Visit: No Status: Acute (2) Nicotine dependence Current Visit: No Status: Acute Qualifiers: Nicotine product type: cigarettes Substance use status: in withdrawal Qualified Code(s): F17.213 - Nicotine dependence, cigarettes, with withdrawal (3) Opioid dependence with withdrawal Current Visit: No Status: Acute (4) Insomnia Current Visit: No Status: Suspected Qualifiers: Insomnia type: unspecified Qualified Code(s): G47.00 - Insomnia, unspecified Cleared for Admission [facility] - Detox or Rehab [facility] Level of Care: Medically Managed Detox Regimen/Protocol: Methadone Breathalyzer - Breathalyzer Breathalyzer: 0 Urine Drug Screen - Test Device Lot number: [id number] Expiration date: 08/06/20 - Control Is test valid?: Yes - Results Drug screen NEGATIVE: No Urine drug screen results: THC-Marijuana, FEN-Fentanyl, MOP-Opiates, OXY- Oxycodone, MTD-Methadone, BZO-Benzodiazepines Inpatient Rehab Admission - Rehab Decision to Admit Inpatient rehab admission?: No
[2018-12-09] MEDS ORDERED: cloNIDine HCL 0.1 MG TABLET PO PRN (12:12)
[2018-12-09] MEDS ORDERED: SODIUM CHLORIDE FOR INHALATION 3 ML VIAL.NEB IH PRN (12:13)
[2018-12-09] MEDS ORDERED: ALBUTEROL SO4 8 GM HFA INHALER IH PRN (12:14)
[2018-12-09] MEDS ORDERED: METHOCARBAMOL 500 MG TABLET PO PRN (12:21)
[2018-12-09] MEDS ORDERED: MAG HYDROX/AL HYDROX/SIMETH 30 ML UNIT-DOSE CUP PO PRN (12:21)
[2018-12-09] MEDS ORDERED: ACETAMINOPHEN 325 MG TABLET (FP) PO PRN ×2 (12:21)
[2018-12-09] MEDS ORDERED: MAGNESIUM HYDROX 2400MG/30ML ORAL SUSPENSION 30 ML CUP PO PRN (12:21)
[2018-12-09] MEDS ORDERED: BISMUTH SUBSALICYLATE 262 MG/15 ML BTL PO PRN (12:21)
[2018-12-09] MEDS ORDERED: NICOTINE POLACRILEX 2 MG GUM BUC PRN (12:21)
[2018-12-09] MEDS ORDERED: MAGNESIUM CITRATE 300 ML BOTTLE PO PRN (12:21)
[2018-12-09] MEDS ORDERED: MENTHOL/PHENOL 1 EACH UD MM PRN (12:21)
--- NOTE | 2018-12-09 13:19 | PN ---
[facility] Progress Note Note: this 32 years old male with heroin dependence seeking help I personally review,present ,and review history and examination of this patient by Janine Watson, discussed the plan of treatment ,I agreed and concurred that this patient need inpatient detox from opiate, Medically Managed and methadone regimen
[2018-12-09] MEDS ORDERED: METHADONE HCL 10 MG TABLET (FOR DETOX USE ONLY) PO ONE (13:45)
[2018-12-09] MEDS: IBUPROFEN 400 MG TABLET (FP) PO PRN ×2 (14:40→22:40)
[2018-12-09] MEDS: diazePAM 5 MG TABLET PO PRN ×2 (14:40→19:55)
[2018-12-09] MEDS: NICOTINE 7 MG/24 HOURS TOPICAL PATCH TD SCH (14:43)
[2018-12-09 14:50] LABS: HEMOGLOBIN 11.8 GM/dL (11.7-16.9); MCH 29.6 pg (25.7-33.7); MCHC 32.9 g/dl (32.0-35.9); MEAN CELL VOLUME 89.8 fl (80-96); MEAN PLT VOLUME 7.5 fl (7.5-11.1); PLATELET COUNT 263 K/MM3 (134-434); RBC 4.01 M/mm3 (4.00-5.60); RDW 14.5 % (11.9-15.9); WHITE BLOOD COUNT 6.7 K/mm3 (4.0-10.0)
[2018-12-09 15:03] LABS: ALBUMIN 3.6 g/dl (3.4-5.0); BILIRUBIN,TOTAL 0.4 mg/dL (0.2-1); BLOOD UREA NITROGEN 15.6 mg/dL (7-18); CALCIUM 8.7 mg/dL (8.5-10.1); POTASSIUM 4.2 mmol/L (3.5-5.1); TOT PROT 6.8 g/dl (6.4-8.2)
[2018-12-09] MEDS: AMOX TR/POT CLAV 875MG/125MG TABLETS (FP) PO SCH (17:30)
[2018-12-09] MEDS ORDERED: AMOX TR/POT CLAV 875MG/125MG TABLETS (FP) PO SCH (17:30)
[2018-12-09] MEDS: OXYMETAZOLINE 0.05% NASAL SOLUTION 15 ML BOTTLE NS PRN (18:25)
[2018-12-09] MEDS: MELATONIN 5 MG TABLETS PO PRN (22:40)
[2018-12-09] MEDS: hydrOXYzine PAMOATE 25 MG CAPSULE (FP) PO PRN (22:42)
[2018-12-09] MEDS: BUDESONIDE/FORMETEROL FUMARATE 160/4.5 mcg INHALER IH SCH (22:42)
[2018-12-09] MEDS: THIAMINE HCL 100 MG TABLET (FP) PO SCH (22:46)
[2018-12-10] MEDS: AMOX TR/POT CLAV 875MG/125MG TABLETS (FP) PO SCH ×2 (07:31→17:39)
[2018-12-10 09:35] LABS: PH,URINE 5.5 (5.0-8.0); URINE APPEARANCE CLEAR; URINE BILIRUBIN NEGATIVE (NEGATIVE); URINE COLOR YELLOW; URINE GLUCOSE (UA) NEGATIVE (NEGATIVE); URINE KETONE NEGATIVE (NEGATIVE); URINE LEUK ESTERASE NEGATIVE (NEGATIVE); URINE NITRITE NEGATIVE (NEGATIVE); URINE PROTEIN NEGATIVE (NEGATIVE); URINE UROBILINOGEN 0.2 mg/dL (0.2-1.0)
[2018-12-10] MEDS ORDERED: METHADONE (DETOX) 20 MG, METHADONE (DETOX) 5 MG PO ONE (10:00)
[2018-12-10] MEDS ORDERED: METHADONE HCL 10 MG TABLET (FOR DETOX USE ONLY) ONE (10:05)
[2018-12-10] MEDS ORDERED: METHADONE HCL 5 MG TABLET (FOR DETOX USE ONLY) ONE (10:05)
--- NOTE | 2018-12-10 10:28 | EKG ---
Test Reason : Blood Pressure : / mmHG Vent. Rate : 064 BPM Atrial Rate : 064 BPM P-R Int : 164 ms QRS Dur : 088 ms QT Int : 402 ms P-R-T Axes : 073 070 062 degrees QTc Int : 414 ms NORMAL SINUS RHYTHM NORMAL ECG WHEN COMPARED WITH ECG OF 11-FEB-2018 22:28, NO SIGNIFICANT CHANGE WAS FOUND Confirmed by MATHIEU MIXON MD ([id number]) on 12/10/2018 10:28:38 AM Referred By: Confirmed By:MATHIEU MIXON MD
[2018-12-10] MEDS: BUDESONIDE/FORMETEROL FUMARATE 160/4.5 mcg INHALER IH SCH ×2 (10:29→22:22)
[2018-12-10] MEDS: OXYMETAZOLINE 0.05% NASAL SOLUTION 15 ML BOTTLE NS PRN ×2 (10:30→22:23)
[2018-12-10] MEDS: diazePAM 5 MG TABLET PO PRN ×4 (10:31→22:22)
[2018-12-10] MEDS: PRENATAL VITAMINS W/ FOLIC ACID TABLET (FP) PO SCH (10:31)
[2018-12-10] MEDS: NICOTINE 7 MG/24 HOURS TOPICAL PATCH TD SCH (10:32)
--- NOTE | 2018-12-10 11:02 | PN ---
BHS COWS - Scale Resting Pulse: 1= [place] 81-100 Sweatin= Chills/Flushing Restless Observation: 1= Difficult to Sit Still Pupil Size: 1= Pupils >than Normal Bone or Joint Aches: 1= Mild Discomfort Runny Nose/ Eye Tearin= Nasal Congestion GI Upset > 30mins: 1= Stomach Cramp Tremor Observation of Outstretched Hands: 2= Slight Tremor Visible Yawning Observation: 1= 1-2x During Session Anxiety or Irritability: 2=Irritable/Anxious Goose Flesh Skin: 3=Piloerection COWS Score: 15 BHS Progress Note (SOAP) Subjective: report feeling better with the antibiotic tolerate food and fluid well ambulating on hallway social with peers Objective: 12/10/18 11:07 Vital Signs Temperature 96.9 F L 12/10/18 09:45 Pulse Rate 83 12/10/18 09:45 Respiratory Rate 18 12/10/18 09:45 Blood Pressure 138/93 12/10/18 09:45 O2 Sat by Pulse Oximetry (%) Laboratory Last Values WBC 6.7 K/mm3 (4.0-10.0) 12/09/18 12:30 RBC 4.01 M/mm3 (4.00-5.60) 12/09/18 12:30 Hgb 11.8 GM/dL (11.7-16.9) 12/09/18 12:30 Hct 36.0 % (35.4-49) 12/09/18 12:30 MCV 89.8 fl (80-96) 12/09/18 12:30 MCH 29.6 pg (25.7-33.7) 12/09/18 12:30 MCHC 32.9 g/dl (32.0-35.9) 12/09/18 12:30 RDW 14.5 % (11.9-15.9) 12/09/18 12:30 Plt Count 263 K/MM3 (134-434) 12/09/18 12:30 MPV 7.5 fl (7.5-11.1) D 12/09/18 12:30 Sodium 144 mmol/L (136-145) 12/09/18 12:30 Potassium 4.2 mmol/L (3.5-5.1) 12/09/18 12:30 Chloride 115 mmol/L (98-107) H 12/09/18 12:30 Carbon Dioxide 23 mmol/L (21-32) 12/09/18 12:30 Anion Gap 6 MMOL/L (8-16) L 12/09/18 12:30 BUN 15.6 mg/dL (7-18) 12/09/18 12:30 Creatinine 1.0 mg/dL (0.55-1.3) 12/09/18 12:30 Est GFR (CKD-EPI)AfAm 114.91 12/09/18 12:30 Est GFR (CKD-EPI)NonAf 99.15 12/09/18 12:30 Random Glucose 118 mg/dL (74-106) H 12/09/18 12:30 Calcium 8.7 mg/dL (8.5-10.1) 12/09/18 12:30 Total Bilirubin 0.4 mg/dL (0.2-1) 12/09/18 12:30 AST 15 U/L (15-37) 12/09/18 12:30 ALT 22 U/L (13-61) 12/09/18 12:30 Alkaline Phosphatase 68 U/L (45-117) 12/09/18 12:30 Total Protein 6.8 g/dl (6.4-8.2) 12/09/18 12:30 Albumin 3.6 g/dl (3.4-5.0) 12/09/18 12:30 Urine Color Yellow 12/09/18 18:45 Urine Appearance Clear 12/09/18 18:45 Urine pH 5.5 (5.0-8.0) D 12/09/18 18:45 Ur Specific [place] 1.025 (1.010-1.035) 12/09/18 18:45 Urine Protein Negative (NEGATIVE) 12/09/18 18:45 Urine Glucose (UA) Negative (NEGATIVE) 12/09/18 18:45 Urine Ketones Negative (NEGATIVE) 12/09/18 18:45 Urine Blood Negative (NEGATIVE) 12/09/18 18:45 Urine Nitrite Negative (NEGATIVE) 12/09/18 18:45 Urine Bilirubin Negative (NEGATIVE) 12/09/18 18:45 Urine Urobilinogen 0.2 mg/dL (0.2-1.0) 12/09/18 18:45 Ur Leukocyte Esterase Negative (NEGATIVE) 12/09/18 18:45 RPR Titer Nonreactive (NONREACTIVE) 12/09/18 12:30 lab noted Assessment: 12/10/18 11:07 opiate withdrawal sx Plan: continue opiate detox
[2018-12-10] MEDS: THIAMINE HCL 100 MG TABLET (FP) PO SCH (22:22)
[2018-12-10] MEDS: IBUPROFEN 400 MG TABLET (FP) PO PRN (22:25)
[2018-12-11] MEDS: AMOX TR/POT CLAV 875MG/125MG TABLETS (FP) PO SCH ×2 (07:29→19:28)
[2018-12-11] MEDS: diazePAM 5 MG TABLET PO PRN ×4 (07:29→23:06)
[2018-12-11] MEDS ORDERED: METHADONE HCL 10 MG TABLET (FOR DETOX USE ONLY) PO ONE (10:00)
[2018-12-11] MEDS: BUDESONIDE/FORMETEROL FUMARATE 160/4.5 mcg INHALER IH SCH ×2 (10:37→23:03)
[2018-12-11] MEDS: OXYMETAZOLINE 0.05% NASAL SOLUTION 15 ML BOTTLE NS PRN (10:38)
[2018-12-11] MEDS: PRENATAL VITAMINS W/ FOLIC ACID TABLET (FP) PO SCH (10:38)
[2018-12-11] MEDS: NICOTINE 7 MG/24 HOURS TOPICAL PATCH TD SCH (10:39)
--- NOTE | 2018-12-11 14:11 | PN ---
BHS COWS - Scale Resting Pulse: 0= [place] 80 or Below Sweatin= Chills/Flushing Restless Observation: 1= Difficult to Sit Still Pupil Size: 1= Pupils >than Normal Bone or Joint Aches: 1= Mild Discomfort Runny Nose/ Eye Tearin= Runny Nose/Eyes GI Upset > 30mins: 2= Nausea/Diarrhea Tremor Observation of Outstretched Hands: 1= Tremor [place], Not Seen Yawning Observation: 1= 1-2x During Session Anxiety or Irritability: 2=Irritable/Anxious Goose Flesh Skin: 0=Smooth Skin COWS Score: 12 S Progress Note (SOAP) Subjective: alert,irritable,anxious,interrupted sleep,tremor,pain in the body and back Objective: 12/11/18 14:09 Vital Signs Temperature 97.6 F 12/11/18 13:46 Pulse Rate 85 12/11/18 13:46 Respiratory Rate 18 12/11/18 13:46 Blood Pressure 129/80 12/11/18 13:46 O2 Sat by Pulse Oximetry (%) 12/11/18 14:09 Laboratory Last Values WBC 6.7 K/mm3 (4.0-10.0) 12/09/18 12:30 RBC 4.01 M/mm3 (4.00-5.60) 12/09/18 12:30 Hgb 11.8 GM/dL (11.7-16.9) 12/09/18 12:30 Hct 36.0 % (35.4-49) 12/09/18 12:30 MCV 89.8 fl (80-96) 12/09/18 12:30 MCH 29.6 pg (25.7-33.7) 12/09/18 12:30 MCHC 32.9 g/dl (32.0-35.9) 12/09/18 12:30 RDW 14.5 % (11.9-15.9) 12/09/18 12:30 Plt Count 263 K/MM3 (134-434) 12/09/18 12:30 MPV 7.5 fl (7.5-11.1) D 12/09/18 12:30 Sodium 144 mmol/L (136-145) 12/09/18 12:30 Potassium 4.2 mmol/L (3.5-5.1) 12/09/18 12:30 Chloride 115 mmol/L (98-107) H 12/09/18 12:30 Carbon Dioxide 23 mmol/L (21-32) 12/09/18 12:30 Anion Gap 6 MMOL/L (8-16) L 12/09/18 12:30 BUN 15.6 mg/dL (7-18) 12/09/18 12:30 Creatinine 1.0 mg/dL (0.55-1.3) 12/09/18 12:30 Est GFR (CKD-EPI)AfAm 114.91 12/09/18 12:30 Est GFR (CKD-EPI)NonAf 99.15 12/09/18 12:30 Random Glucose 118 mg/dL (74-106) H 12/09/18 12:30 Calcium 8.7 mg/dL (8.5-10.1) 12/09/18 12:30 Total Bilirubin 0.4 mg/dL (0.2-1) 12/09/18 12:30 AST 15 U/L (15-37) 12/09/18 12:30 ALT 22 U/L (13-61) 12/09/18 12:30 Alkaline Phosphatase 68 U/L (45-117) 12/09/18 12:30 Total Protein 6.8 g/dl (6.4-8.2) 12/09/18 12:30 Albumin 3.6 g/dl (3.4-5.0) 12/09/18 12:30 Urine Color Yellow 12/09/18 18:45 Urine Appearance Clear 12/09/18 18:45 Urine pH 5.5 (5.0-8.0) D 12/09/18 18:45 Ur Specific [place] 1.025 (1.010-1.035) 12/09/18 18:45 Urine Protein Negative (NEGATIVE) 12/09/18 18:45 Urine Glucose (UA) Negative (NEGATIVE) 12/09/18 18:45 Urine Ketones Negative (NEGATIVE) 12/09/18 18:45 Urine Blood Negative (NEGATIVE) 12/09/18 18:45 Urine Nitrite Negative (NEGATIVE) 12/09/18 18:45 Urine Bilirubin Negative (NEGATIVE) 12/09/18 18:45 Urine Urobilinogen 0.2 mg/dL (0.2-1.0) 12/09/18 18:45 Ur Leukocyte Esterase Negative (NEGATIVE) 12/09/18 18:45 RPR Titer Nonreactive (NONREACTIVE) 12/09/18 12:30 Assessment: 12/11/18 14:10 withdrawal symptom Plan: continue detox,glucose 118,fasting glucose in am
[2018-12-11] MEDS: MELATONIN 5 MG TABLETS PO PRN (23:03)
[2018-12-11] MEDS: THIAMINE HCL 100 MG TABLET (FP) PO SCH (23:03)
[2018-12-11] MEDS: IBUPROFEN 400 MG TABLET (FP) PO PRN (23:06)
[2018-12-12] MEDS: OXYMETAZOLINE 0.05% NASAL SOLUTION 15 ML BOTTLE NS PRN ×3 (00:55→23:20)
[2018-12-12] MEDS: AMOX TR/POT CLAV 875MG/125MG TABLETS (FP) PO SCH (08:43)
[2018-12-12] MEDS: diazePAM 5 MG TABLET PO PRN (08:44)
[2018-12-12] MEDS ORDERED: METHADONE HCL 5 MG TABLET (FOR DETOX USE ONLY) ONE (09:30)
[2018-12-12] MEDS ORDERED: METHADONE HCL 10 MG TABLET (FOR DETOX USE ONLY) ONE (09:30)
[2018-12-12] MEDS ORDERED: BENZOCAINE 20 % GEL TUBE MM PRN (09:36)
[2018-12-12] MEDS ORDERED: METHADONE (DETOX) 10 MG, METHADONE (DETOX) 5 MG PO ONE (10:00)
[2018-12-12] MEDS: PRENATAL VITAMINS W/ FOLIC ACID TABLET (FP) PO SCH (10:20)
[2018-12-12] MEDS: NICOTINE 7 MG/24 HOURS TOPICAL PATCH TD SCH (10:20)
[2018-12-12] MEDS: BUDESONIDE/FORMETEROL FUMARATE 160/4.5 mcg INHALER IH SCH ×2 (10:21→22:27)
[2018-12-12] MEDS: IBUPROFEN 400 MG TABLET (FP) PO PRN ×2 (10:24→23:23)
--- NOTE | 2018-12-12 13:38 | PN ---
BHS COWS - Scale Resting Pulse: 0= [place] 80 or Below Sweatin= Chills/Flushing Restless Observation: 1= Difficult to Sit Still Pupil Size: 0= Normal to Room Light Bone or Joint Aches: 0= None Runny Nose/ Eye Tearin= None GI Upset > 30mins: 2= Nausea/Diarrhea Tremor Observation of Outstretched Hands: 0= None Yawning Observation: 1= 1-2x During Session Anxiety or Irritability: 2=Irritable/Anxious Goose Flesh Skin: 3=Piloerection COWS Score: 10 BHS Progress Note (SOAP) Subjective: Sweating, Anxious, Stomach Cramping, Diarrhea. Objective: PATIENT A & O X 3, OBSERVED AMBULATING ON UNIT UNASSISTED. IN NO ACUTE DISTRESS. 12/12/18 13:37 Vital Signs Temperature 98.8 F 12/12/18 09:38 Pulse Rate 79 12/12/18 09:38 Respiratory Rate 18 12/12/18 09:38 Blood Pressure 131/89 12/12/18 09:38 O2 Sat by Pulse Oximetry (%) Laboratory Tests 12/09/18 12/09/18 12/09/18 12:30 12:30 12:30 WBC 6.7 RBC 4.01 Hgb 11.8 Hct 36.0 MCV 89.8 MCH 29.6 MCHC 32.9 RDW 14.5 Plt Count 263 MPV 7.5 D Sodium 144 Potassium 4.2 Chloride 115 H Carbon Dioxide 23 Anion Gap 6 L BUN 15.6 Creatinine 1.0 Est GFR (CKD-EPI)AfAm 114.91 Est GFR (CKD-EPI)NonAf 99.15 Random Glucose 118 H Calcium 8.7 Total Bilirubin 0.4 AST 15 ALT 22 Alkaline Phosphatase 68 Total Protein 6.8 Albumin 3.6 Urine Color Urine Appearance Urine pH Ur Specific [place] Urine Protein Urine Glucose (UA) Urine Ketones Urine Blood Urine Nitrite Urine Bilirubin Urine Urobilinogen Ur Leukocyte Esterase RPR Titer Nonreactive 12/09/18 18:45 WBC RBC Hgb Hct MCV MCH MCHC RDW Plt Count MPV Sodium Potassium Chloride Carbon Dioxide Anion Gap BUN Creatinine Est GFR (CKD-EPI)AfAm Est GFR (CKD-EPI)NonAf Random Glucose Calcium Total Bilirubin AST ALT Alkaline Phosphatase Total Protein Albumin Urine Color Yellow Urine Appearance Clear Urine pH 5.5 D Ur Specific [place] 1.025 Urine Protein Negative Urine Glucose (UA) Negative Urine Ketones Negative Urine Blood Negative Urine Nitrite Negative Urine Bilirubin Negative Urine Urobilinogen 0.2 Ur Leukocyte Esterase Negative RPR Titer LABS NOTED. Assessment: 12/12/18 13:37 WITHDRAWAL SYMPTOMS. Plan: CONTINUE DETOX. INCREASE DAILY PO WATER INTAKE. PRN PEPTO-BISMOL PO FOR DIARRHEA.
[2018-12-12] MEDS: hydrOXYzine PAMOATE 25 MG CAPSULE (FP) PO PRN ×2 (18:02→23:19)
[2018-12-12] MEDS: THIAMINE HCL 100 MG TABLET (FP) PO SCH (22:26)
[2018-12-12] MEDS: MELATONIN 5 MG TABLETS PO PRN (22:27)
[2018-12-13] MEDS ORDERED: METHADONE HCL 10 MG TABLET (FOR DETOX USE ONLY) PO ONE (10:00)
[2018-12-13] MEDS: NICOTINE 7 MG/24 HOURS TOPICAL PATCH TD SCH (10:12)
[2018-12-13] MEDS: PRENATAL VITAMINS W/ FOLIC ACID TABLET (FP) PO SCH (10:12)
[2018-12-13] MEDS: BUDESONIDE/FORMETEROL FUMARATE 160/4.5 mcg INHALER IH SCH ×2 (10:13→22:19)
--- NOTE | 2018-12-13 14:47 | PN ---
BHS COWS - Scale Resting Pulse: 1= [place] 81-100 Sweatin= No chills or Flushing Restless Observation: 0= Sits Still Pupil Size: 0= Normal to Room Light Bone or Joint Aches: 1= Mild Discomfort Runny Nose/ Eye Tearin= Nasal Congestion GI Upset > 30mins: 0= None Tremor Observation of Outstretched Hands: 1= Tremor [place], Not Seen Yawning Observation: 1= 1-2x During Session Anxiety or Irritability: 1=Feels Anxious/Irritable Goose Flesh Skin: 0=Smooth Skin COWS Score: 6 BHS Progress Note (SOAP) Subjective: feeling better today less body aches mild anxiety discuss medication assisted treatment program Objective: 12/13/18 14:51 Vital Signs Temperature 99.4 F 12/13/18 13:48 Pulse Rate 98 H 12/13/18 13:48 Respiratory Rate 18 12/13/18 13:48 Blood Pressure 137/84 12/13/18 13:48 O2 Sat by Pulse Oximetry (%) Laboratory Last Values WBC 6.7 K/mm3 (4.0-10.0) 12/09/18 12:30 RBC 4.01 M/mm3 (4.00-5.60) 12/09/18 12:30 Hgb 11.8 GM/dL (11.7-16.9) 12/09/18 12:30 Hct 36.0 % (35.4-49) 12/09/18 12:30 MCV 89.8 fl (80-96) 12/09/18 12:30 MCH 29.6 pg (25.7-33.7) 12/09/18 12:30 MCHC 32.9 g/dl (32.0-35.9) 12/09/18 12:30 RDW 14.5 % (11.9-15.9) 12/09/18 12:30 Plt Count 263 K/MM3 (134-434) 12/09/18 12:30 MPV 7.5 fl (7.5-11.1) D 12/09/18 12:30 Sodium 144 mmol/L (136-145) 12/09/18 12:30 Potassium 4.2 mmol/L (3.5-5.1) 12/09/18 12:30 Chloride 115 mmol/L (98-107) H 12/09/18 12:30 Carbon Dioxide 23 mmol/L (21-32) 12/09/18 12:30 Anion Gap 6 MMOL/L (8-16) L 12/09/18 12:30 BUN 15.6 mg/dL (7-18) 12/09/18 12:30 Creatinine 1.0 mg/dL (0.55-1.3) 12/09/18 12:30 Est GFR (CKD-EPI)AfAm 114.91 12/09/18 12:30 Est GFR (CKD-EPI)NonAf 99.15 12/09/18 12:30 Random Glucose 118 mg/dL (74-106) H 12/09/18 12:30 Calcium 8.7 mg/dL (8.5-10.1) 12/09/18 12:30 Total Bilirubin 0.4 mg/dL (0.2-1) 12/09/18 12:30 AST 15 U/L (15-37) 12/09/18 12:30 ALT 22 U/L (13-61) 12/09/18 12:30 Alkaline Phosphatase 68 U/L (45-117) 12/09/18 12:30 Total Protein 6.8 g/dl (6.4-8.2) 12/09/18 12:30 Albumin 3.6 g/dl (3.4-5.0) 12/09/18 12:30 Urine Color Yellow 12/09/18 18:45 Urine Appearance Clear 12/09/18 18:45 Urine pH 5.5 (5.0-8.0) D 12/09/18 18:45 Ur Specific [place] 1.025 (1.010-1.035) 12/09/18 18:45 Urine Protein Negative (NEGATIVE) 12/09/18 18:45 Urine Glucose (UA) Negative (NEGATIVE) 12/09/18 18:45 Urine Ketones Negative (NEGATIVE) 12/09/18 18:45 Urine Blood Negative (NEGATIVE) 12/09/18 18:45 Urine Nitrite Negative (NEGATIVE) 12/09/18 18:45 Urine Bilirubin Negative (NEGATIVE) 12/09/18 18:45 Urine Urobilinogen 0.2 mg/dL (0.2-1.0) 12/09/18 18:45 Ur Leukocyte Esterase Negative (NEGATIVE) 12/09/18 18:45 RPR Titer Nonreactive (NONREACTIVE) 12/09/18 12:30 lab noted Assessment: 12/13/18 14:51 opiate withdrawal sx Plan: continue opiate detox
[2018-12-13] MEDS: MELATONIN 5 MG TABLETS PO PRN (22:18)
[2018-12-13] MEDS: THIAMINE HCL 100 MG TABLET (FP) PO SCH (22:18)
[2018-12-13] MEDS: OXYMETAZOLINE 0.05% NASAL SOLUTION 15 ML BOTTLE NS PRN (22:20)
[2018-12-13] MEDS: hydrOXYzine PAMOATE 25 MG CAPSULE (FP) PO PRN (22:58)
[2018-12-14] MEDS ORDERED: METHADONE HCL 5 MG TABLET (FOR DETOX USE ONLY) PO ONE (06:00)
[2018-12-14] MEDS: NICOTINE 7 MG/24 HOURS TOPICAL PATCH TD SCH (10:12)
[2018-12-14] MEDS: PRENATAL VITAMINS W/ FOLIC ACID TABLET (FP) PO SCH (10:12)
[2018-12-14] MEDS: BUDESONIDE/FORMETEROL FUMARATE 160/4.5 mcg INHALER IH SCH (10:12)
[2018-12-14 13:18] VITALS: PULSE 86; TEMP 97.7
[2018-12-14 13:19] VITALS: BP 116/79
--- NOTE | 2018-12-14 14:13 | DS ---
[facility] Detox Discharge Summary Admission Date: 12/09/18 Discharge Date: 12/14/18 - History Present History: Opioid Dependence Additional Comments: 32 years old male admitted on 12/09/18 for opiate withdrawal stabilizatin completed detox regimen [facility] - Physical Exam Results Vital Signs: Vital Signs Temperature 97.7 F 12/14/18 13:17 Pulse Rate 86 12/14/18 13:17 Respiratory Rate 18 12/14/18 13:17 Blood Pressure 116/79 12/14/18 13:17 O2 Sat by Pulse Oximetry (%) Pertinent Admission Physical Exam Findings: opiate withdrawal sx Laboratory Last Values WBC 6.7 K/mm3 (4.0-10.0) 12/09/18 12:30 RBC 4.01 M/mm3 (4.00-5.60) 12/09/18 12:30 Hgb 11.8 GM/dL (11.7-16.9) 12/09/18 12:30 Hct 36.0 % (35.4-49) 12/09/18 12:30 MCV 89.8 fl (80-96) 12/09/18 12:30 MCH 29.6 pg (25.7-33.7) 12/09/18 12:30 MCHC 32.9 g/dl (32.0-35.9) 12/09/18 12:30 RDW 14.5 % (11.9-15.9) 12/09/18 12:30 Plt Count 263 K/MM3 (134-434) 12/09/18 12:30 MPV 7.5 fl (7.5-11.1) D 12/09/18 12:30 Sodium 144 mmol/L (136-145) 12/09/18 12:30 Potassium 4.2 mmol/L (3.5-5.1) 12/09/18 12:30 Chloride 115 mmol/L (98-107) H 12/09/18 12:30 Carbon Dioxide 23 mmol/L (21-32) 12/09/18 12:30 Anion Gap 6 MMOL/L (8-16) L 12/09/18 12:30 BUN 15.6 mg/dL (7-18) 12/09/18 12:30 Creatinine 1.0 mg/dL (0.55-1.3) 12/09/18 12:30 Est GFR (CKD-EPI)AfAm 114.91 12/09/18 12:30 Est GFR (CKD-EPI)NonAf 99.15 12/09/18 12:30 Random Glucose 118 mg/dL (74-106) H 12/09/18 12:30 Calcium 8.7 mg/dL (8.5-10.1) 12/09/18 12:30 Total Bilirubin 0.4 mg/dL (0.2-1) 12/09/18 12:30 AST 15 U/L (15-37) 12/09/18 12:30 ALT 22 U/L (13-61) 12/09/18 12:30 Alkaline Phosphatase 68 U/L (45-117) 12/09/18 12:30 Total Protein 6.8 g/dl (6.4-8.2) 12/09/18 12:30 Albumin 3.6 g/dl (3.4-5.0) 12/09/18 12:30 Urine Color Yellow 12/09/18 18:45 Urine Appearance Clear 12/09/18 18:45 Urine pH 5.5 (5.0-8.0) D 12/09/18 18:45 Ur Specific [place] 1.025 (1.010-1.035) 12/09/18 18:45 Urine Protein Negative (NEGATIVE) 12/09/18 18:45 Urine Glucose (UA) Negative (NEGATIVE) 12/09/18 18:45 Urine Ketones Negative (NEGATIVE) 12/09/18 18:45 Urine Blood Negative (NEGATIVE) 12/09/18 18:45 Urine Nitrite Negative (NEGATIVE) 12/09/18 18:45 Urine Bilirubin Negative (NEGATIVE) 12/09/18 18:45 Urine Urobilinogen 0.2 mg/dL (0.2-1.0) 12/09/18 18:45 Ur Leukocyte Esterase Negative (NEGATIVE) 12/09/18 18:45 RPR Titer Nonreactive (NONREACTIVE) 12/09/18 12:30 lab noted - Treatment Hospital Course: Detox Protocol Followed, Detoxed Safely, Responded well, Discharged Condition Good, Rehab Referral Accepted Patient has Accepted a Rehab Referral to: [facility] - Medication Discharge Medications: Ambulatory Orders Ibuprofen 600 mg PO QID PRN 12/09/18 Oxymetazoline 0.05% Nasal Soln [Afrin -] 2 spray NS BID 12/09/18 Penicillin V Potassium [Pen Vee K -] 500 mg PO QID 12/09/18 Albuterol Sulfate Inhaler - [Ventolin HFA Inhaler -] 2 puff IH Q4H PRN #1 inhaler 12/13/18 Budesonide/Formeterol Fumarate [SYMBICORT 160/4.5mcg -] 2 inh PO BID #1 inhaler 12/13/18 - Diagnosis (1) Nicotine dependence Current Visit: Yes Status: Acute Qualifiers: Nicotine product type: cigarettes Substance use status: in withdrawal Qualified Code(s): F17.213 - Nicotine dependence, cigarettes, with withdrawal (2) Opioid dependence with withdrawal Current Visit: Yes Status: Acute (3) Asthma Current Visit: Yes Status: Chronic Qualifiers: Asthma severity: mild Asthma persistence: intermittent Asthma complication type: with status asthmaticus Qualified Code(s): J45.22 - Mild intermittent asthma with status asthmaticus - AMA Did Patient Leave Against Medical Advice: No
== END 2018-12-14 12:50 | disposition other institution (70) | DRG 773 ==
LOC: YASAS 10:26 → Y3N 13:22
PROVIDERS: ADMIT Surgery; ATTEND Surgery
PROC: HZ2ZZZZ Detoxification Services for Substance Abuse Treatment (ICD-10-PCS; principal; 2018-12-09)
DX: F11.23 Opioid dependence with withdrawal (principal); F17.213 Nicotine dependence, cigarettes, with withdrawal; F41.9 Anxiety disorder, unspecified; J45.22 Mild intermittent asthma with status asthmaticus; G47.00 Insomnia, unspecified
CPT/HCPCS: 36415; 80053; 81003; 85027; 86593; 93005; 93010; J0735

== ENCOUNTER 2018-12-14 13:10 | Inpatient (IN) | payer OTHER ==
[2018-12-14] MEDS ORDERED: MAGNESIUM HYDROX 2400MG/30ML ORAL SUSPENSION 30 ML CUP PO PRN (14:14)
[2018-12-14] MEDS ORDERED: MAG HYDROX/AL HYDROX/SIMETH 30 ML UNIT-DOSE CUP PO PRN (14:14)
[2018-12-14] MEDS ORDERED: guaiFENesin 200 MG/10 ML 10 ML UNIT-DOSE CUPS PO PRN (14:14)
[2018-12-14] MEDS ORDERED: MAGNESIUM CITRATE 300 ML BOTTLE PO PRN (14:14)
[2018-12-14] MEDS ORDERED: MENTHOL/PHENOL 1 EACH UD MM PRN (14:14)
[2018-12-14] MEDS ORDERED: NICOTINE POLACRILEX 2 MG GUM BC PRN (14:14)
[2018-12-14] MEDS ORDERED: IBUPROFEN 400 MG TABLET (FP) PO PRN (14:14)
[2018-12-14] MEDS ORDERED: ACETAMINOPHEN 325 MG TABLET (FP) PO PRN (14:14)
[2018-12-14] MEDS ORDERED: LOPERAMIDE HCL 2 MG CAPSULE PO PRN (14:14)
[2018-12-14] MEDS ORDERED: P-EPHED 60MG/TRIPROLIDI 2.5MG TABLET PO PRN (14:14)
--- NOTE | 2018-12-14 14:14 | HP ---
[facility] Rehab Assess/Revision - Admission History Admitted to Rehab from: [facility] Date of Admission to Rehab: 12/14/18 - Findings Detox History & Physical reviewed: Yes Concur with findings: Yes Comments/Additional Findings: transferred from detox to rehab admission as per protocol Inpatient Rehab Admission - Rehab Decision to Admit Inpatient rehab admission?: Yes - Initial Determination Are CD services needed?: Yes Free of communicable disease: Yes Not in need of hospitalization: Yes - Rehab Admission Criteria Previous failed treatment: Yes Poor recovery environment: Yes Comorbidities: Yes Lacks judgement: No Patient is meeting Inpatient Rehab admission criteria:: Yes
[2018-12-14] MEDS ORDERED: ALBUTEROL SO4 8 GM HFA INHALER IH PRN (14:16)
[2018-12-14] MEDS ORDERED: OXYMETAZOLINE 0.05% NASAL SOLUTION 15 ML BOTTLE NS PRN (14:19)
[2018-12-14] MEDS ORDERED: BENZOCAINE 20 % GEL TUBE MM PRN (14:30)
[2018-12-14 15:20] VITALS: BP 135/76; PULSE 86; TEMP 98.2
[2018-12-14] MEDS ORDERED: NICOTINE 14 MG/24 HOURS TOPICAL PATCH TD PRN (15:45)
--- NOTE | 2018-12-14 19:24 | PN ---
[facility] Progress Note Note: Patient completed detox and was admitted to rehab earlier today. Dx; Early opioid remission Patient now states has to leave for personal reasons. Patient refuses to stay, despite encouragement. Patient is alert and oriented. Reviewed loss of tolerance and overdose risks w/ patient. Patient consents to have a Narcan kit and will inform close significant others of its use. Patient left unit AMA.
[2018-12-14] MEDS ORDERED: BUDESONIDE/FORMETEROL FUMARATE 160/4.5 mcg INHALER IH SCH (22:00)
[2018-12-14] MEDS ORDERED: THIAMINE HCL 100 MG TABLET (FP) PO SCH (22:00)
[2018-12-14] MEDS ORDERED: MELATONIN 5 MG TABLETS PO PRN (22:00)
[2018-12-15] MEDS ORDERED: PRENATAL VITAMINS W/ FOLIC ACID TABLET (FP) PO SCH (10:00)
== END 2018-12-14 19:45 | disposition left against medical advice (07) | DRG 770 ==
LOC: YASAS 13:10 → Y5N 13:11 → Y3W 13:49
PROVIDERS: ADMIT Neuromusculoskeletal Medicine & OMM; ATTEND Neuromusculoskeletal Medicine & OMM
PROC: HZ42ZZZ Group Counseling for Substance Abuse Treatment, Cognitive-Behavioral (ICD-10-PCS; principal; 2018-12-14)
DX: F11.20 Opioid dependence, uncomplicated (principal)

== ENCOUNTER 2019-04-10 14:41 | Inpatient (IN) | payer OTHER ==
[2019-04-10 18:22] VITALS: BMI 26.2
--- NOTE | 2019-04-10 22:06 | HP ---
COWS - Scale Resting Pulse: 1= [place] 81-100 Sweatin=Flushed/Facial Moisture Restless Observation: 5= Unable to Sit Still Pupil Size: 0= Normal to Room Light Bone or Joint Aches: 4=Acute Joint/Muscle Pain Runny Nose/ Eye Tearin= Runny Nose/Eyes GI Upset > 30mins: 0= None Tremor Observation: 2= Slight Tremor Visible Yawning Observation: 2= >3x During Session Anxiety or Irritability: 2=Irritable/Anxious Goose Flesh Skin: 3=Piloerection COWS Score: 23 CIWA Score - Admission Criteria OASAS Guidelines: Admission for Medically Managed Detox: Requires at least one of the followin. CIWA greater than 12 2. Seizures within the past 24 hours 3. Delirium tremens within the past 24 hours 4. Hallucinations within the past 24 hours 5. Acute intervention needed for co occurring medical disorder 6. Acute intervention needed for co occurring psychiatric disorder 7. Severe withdrawal that cannot be handled at a lower level of care (continued vomiting, continued diarrhea, abnormal vital signs) requiring intravenous medication and/or fluids 8. Admitting History and Physical - Smoking History Smoking history: Current every day smoker Have you smoked in the past 12 months: Yes Aproximately how many cigarettes per day: 20 - Alcohol/Substance Use Hx Alcohol Use: No Admission ROS S - HPI Chief Complaint: C/O WITHDRAWAL SX'S Allergies/Adverse Reactions: Allergies Allergy/AdvReac Type Severity Reaction Status Date / Time No Known Allergies Allergy Verified 04/10/19 18:06 History of Present Illness: HERE FOR HEROIN DETOX. CLIENT IS SELF REFERRED. KNOWN TO PROGRAM. LAST DC 12/2018 ,. CLIENT COMPLETED DETOX, AMA FROM REHAB ON SAME DAY. HE REPORTS RELAPSING SOON AFTER AND HAS BEEN USING HEROIN DAILY. LAST USE 3 AM TODAY. dENIES IVDU, DRUG OVERDOSE, AMAH,C.P. REPORTS LONGEST CLEAN TIME 8 MONTHS. DENIES ANY IN THE PAST YEAR EXCEPT WHEN IN TXMENT. LIVES W/ FAMILY, UNEMPLOYED, DENIES LEGALS Exam Limitations: No Limitations - Ebola screening Have you traveled outside of the country in the last 21 days: No (N) Have you had contact with anyone from an Ebola affected area: No Do you have a fever: No - Review of Systems Constitutional: Chills, Loss of Appetite, Malaise, Night Sweats, Changes in sleep EENT: reports: Blurred Vision (R EYE- GLASSES), Dental Problems (PAIN CARIES), Other (RUNNY NOSE/ WATERY EYES) Respiratory: reports: No Symptoms reported Cardiac: reports: No Symptoms Reported GI: reports: Poor Appetite, Poor Fluid Intake : reports: No Symptoms Reported Musculoskeletal: reports: Back Pain Integumentary: reports: Flushing, Sweating Neuro: reports: Headache, Tremors Endocrine: reports: No Symptoms Reported Hematology: reports: No Symptoms Reported Psychiatric: reports: Orientated x3, Agitated (IRRITBALED), Anxious Other Systems: Reviewed and Negative Patient History - Patient Medical History Hx Anemia: No Hx Asthma: Yes Hx Chronic Obstructive Pulmonary Disease (COPD): No Hx Cancer: No Hx Cardiac Disorders: No Hx Congestive Heart Failure: No Hx Hypertension: No Hx Hypercholesterolemia: No Hx Pacemaker: No HX Cerebrovascular Accident: No Hx Seizures: No Hx Dementia: No Hx Diabetes: No Hx Gastrointestinal Disorders: No Hx Liver Disease: No Hx Genitourinary Disorders: No Hx Sexually Transmitted Disorders: No Hx Renal Disease (ESRD): No Hx Thyroid Disease: No Hx Human Immunodeficiency Virus (HIV): No Hx Hepatitis C: No Hx Depression: No Hx Suicide Attempt: No Hx Bipolar Disorder: No Hx Schizophrenia: No Other Medical History: DENIES - Patient Surgical History Past Surgical History: No Hx Neurologic Surgery: No Hx Cataract Extraction: No Hx Cardiac Surgery: No Hx Lung Surgery: No Hx Breast Surgery: No Hx Breast Biopsy: No Hx Abdominal Surgery: No Hx Appendectomy: No Hx Cholecystectomy: No Hx Genitourinary Surgery: No Hx Section: No Hx Orthopedic Surgery: No Hx Hysterectomy: No Anesthesia Reaction: No - PPD History Previous Implant?: Yes Documented Results: Negative w/proof Implanted On Prior [facility] Admission?: Yes Date: 11/30/17 Results: 0 mm PPD to be Administered?: Yes - Smoking Cessation Smoking history: Current every day smoker Have you smoked in the past 12 months: Yes Aproximately how many cigarettes per day: 20 Cigars Per Day: 0 Hx Chewing Tobacco Use: No Initiated information on smoking cessation: Yes 'Breaking Loose' booklet given: 04/10/19 - Substance & Tx. History Hx Alcohol Use: No Hx Substance Use: Yes Substance Use Type: Heroin Hx Substance Use Treatment: Yes ([facility]) - Substances abused Heroin Substance route: Inhalation Frequency: Daily Amount used: 15 BAGS Age of first use: 28 Date of last use: 04/10/19 Admission Physical Exam [facility] - Vital Signs Vital Signs: Vital Signs - 24 hr 04/10/19 04/10/19 18:19 20:18 Temperature 97.8 F 97.8 F Pulse Rate 83 83 Respiratory 16 16 Rate Blood Pressure 138/68 138/68 - Physical General Appearance: Yes: Moderate Distress, Tremorous, Irritable, Sweating, Anxious HEENTM: Yes: EOMI, Normocephalic, Normal Voice, [place], Pharynx Normal, Nasal Congestion, Rhinorrhea, Other (RUNNY NOSE) Respiratory: Yes: Chest Non-Tender, Lungs Clear, Normal Breath Sounds, No Respiratory Distress, No Accessory Muscle Use Neck: Yes: No masses,lesions,Nodules, Supple, Trachea in good position Breast: Yes: Breasts Symetrical Cardiology: Yes: Regular Rhythm, Regular Rate, S1, S2 Abdominal: Yes: Normal Bowel Sounds, Non Tender, Soft Genitourinary: Yes: Within Normal Limits Back: Yes: Normal Inspection Musculoskeletal: Yes: full range of Motion, Gait Steady Extremities: Yes: Normal Range of Motion, Non-Tender, Tremors Neurological: Yes: Fully Oriented, Alert, Motor Strength 5/5, Depressed Affect Integumentary: Yes: Dry, Warm Lymphatic: Yes: Within Normal Limits - Diagnostic (1) Nicotine dependence Current Visit: Yes Status: Chronic Qualifiers: Nicotine product type: cigarettes Substance use status: in withdrawal Qualified Code(s): F17.213 - Nicotine dependence, cigarettes, with withdrawal (2) Opioid dependence with withdrawal Current Visit: Yes Status: Acute (3) Substance-induced anxiety disorder Current Visit: Yes Status: Suspected (4) Substance-induced sleep disorder Current Visit: Yes Status: Suspected (5) Asthma Current Visit: Yes Status: Chronic Qualifiers: Asthma severity: mild Asthma persistence: intermittent Asthma complication type: with status asthmaticus Qualified Code(s): J45.22 - Mild intermittent asthma with status asthmaticus (6) Depressed affect Current Visit: Yes Status: Suspected Cleared for Admission [facility] - Detox or Rehab [facility] Level of Care: Medically Managed Detox Regimen/Protocol: Methadone Claeared for Rehab Admission: No Breathalyzer - Breathalyzer Breathalyzer: 0 Urine Drug Screen - Test Device Lot number: [id number] Expiration date: 12/06/20 - Control Is test valid?: Yes - Results Drug screen NEGATIVE: No Urine drug screen results: THC-Marijuana, MET-Methamphetamine, FEN-Fentanyl, MOP -Opiates, OXY-Oxycodone Inpatient Rehab Admission - Rehab Decision to Admit Inpatient rehab admission?: No
[2019-04-10] MEDS ORDERED: BISMUTH SUBSALICYLATE 524 MG/30 ML UD PO PRN (22:07)
[2019-04-10] MEDS ORDERED: guaiFENesin 200 MG/10 ML 10 ML UNIT-DOSE CUPS PO PRN (22:07)
[2019-04-10] MEDS ORDERED: MAGNESIUM CITRATE 300 ML BOTTLE PO PRN (22:07)
[2019-04-10] MEDS ORDERED: ONDANSETRON *ODT* 4 MG TABLET SL PRN (22:07)
[2019-04-10] MEDS ORDERED: P-EPHED 60MG/TRIPROLIDI 2.5MG TABLET PO PRN (22:07)
[2019-04-10] MEDS ORDERED: MAGNESIUM HYDROX 2400MG/30ML ORAL SUSPENSION 30 ML CUP PO PRN (22:07)
[2019-04-10] MEDS ORDERED: NICOTINE POLACRILEX 2 MG GUM BUC PRN (22:07)
[2019-04-10] MEDS ORDERED: METHADONE HCL 10 MG TABLET (FOR DETOX USE ONLY) PO ONE (22:07)
[2019-04-10] MEDS ORDERED: ACETAMINOPHEN 325 MG TABLET (FP) PO PRN ×2 (22:07)
[2019-04-10] MEDS ORDERED: MENTHOL/PHENOL 1 EACH UD MM PRN (22:07)
[2019-04-10] MEDS ORDERED: cloNIDine HCL 0.1 MG TABLET PO PRN (22:07)
[2019-04-10] MEDS ORDERED: MAG HYDROX/AL HYDROX/SIMETH 30 ML UNIT-DOSE CUP PO PRN (22:07)
[2019-04-10] MEDS ORDERED: DICYCLOMINE HCL 10 MG CAPSULE PO PRN (22:07)
[2019-04-10] MEDS ORDERED: NALOXONE HCL 0.4 MG/ML VIAL IM PRN (22:07)
[2019-04-10] MEDS ORDERED: BENZOCAINE 20 % GEL TUBE MM PRN (22:16)
[2019-04-10] MEDS: IBUPROFEN 600 MG TABLET (FP) PO PRN (23:31)
[2019-04-10] MEDS: ALBUTEROL SO4 8 GM HFA INHALER IH PRN (23:41)
[2019-04-11] MEDS: ALBUTEROL SO4 8 GM HFA INHALER IH PRN ×2 (07:20→22:37)
[2019-04-11 09:20] LABS: HEMATOCRIT 34.4 % (35.4-49); HEMOGLOBIN 11.9 GM/dL (11.7-16.9); MCH 30.5 pg (25.7-33.7); MCHC 34.6 g/dl (32.0-35.9); MEAN CELL VOLUME 88.3 fl (80-96); MEAN PLT VOLUME 7.9 fl (7.5-11.1); PLATELET COUNT 268 K/MM3 (134-434); RBC 3.89 M/mm3 (4.00-5.60); RDW 14.7 % (11.9-15.9); WHITE BLOOD COUNT 7.2 K/mm3 (4.0-10.0)
[2019-04-11 09:40] LABS: ALBUMIN 2.8 g/dl (3.4-5.0); BILIRUBIN,TOTAL 1.2 mg/dL (0.2-1); BLOOD UREA NITROGEN 10.3 mg/dL (7-18); CREATININE 0.7 mg/dL (0.55-1.3); POTASSIUM 3.8 mmol/L (3.5-5.1); TOT PROT 5.3 g/dl (6.4-8.2)
[2019-04-11] MEDS ORDERED: METHADONE (DETOX) 20 MG, METHADONE (DETOX) 5 MG PO ONE (10:00)
[2019-04-11] MEDS ORDERED: METHADONE HCL 5 MG TABLET (FOR DETOX USE ONLY) ONE (10:18)
[2019-04-11] MEDS ORDERED: METHADONE HCL 10 MG TABLET (FOR DETOX USE ONLY) ONE (10:18)
[2019-04-11] MEDS: PRENATAL VITAMINS W/ FOLIC ACID TABLET (FP) PO SCH (10:52)
[2019-04-11] MEDS: NICOTINE 21 MG/24 HOURS TOPICAL PATCH TD SCH (10:54)
[2019-04-11] MEDS: hydrOXYzine PAMOATE 25 MG CAPSULE (FP) PO PRN ×2 (10:57→19:27)
[2019-04-11] MEDS: IBUPROFEN 600 MG TABLET (FP) PO PRN (10:57)
--- NOTE | 2019-04-11 16:00 | PN ---
BHS COWS - Scale Resting Pulse: 0= [place] 80 or Below Sweatin=Flushed/Facial Moisture Restless Observation: 3= Extraneous Movement Pupil Size: 0= Normal to Room Light Bone or Joint Aches: 2= Severe Diffuse Aches Runny Nose/ Eye Tearin= Runny Nose/Eyes GI Upset > 30mins: 3= Vomiting/Diarrhea Tremor Observation of Outstretched Hands: 2= Slight Tremor Visible Yawning Observation: 1= 1-2x During Session Anxiety or Irritability: 2=Irritable/Anxious Goose Flesh Skin: 0=Smooth Skin COWS Score: 17 [facility] Progress Note (SOAP) Subjective: Feels ok, medication working Objective: 04/11/19 15:59 Last Vital Signs Temp Pulse Resp BP Pulse Ox 97.9 F 72 18 133/77 04/11/19 13:59 04/11/19 13:59 04/11/19 13:59 04/11/19 13:59 Laboratory Tests 04/11/19 04/11/19 07:50 07:50 WBC 7.2 RBC 3.89 L Hgb 11.9 Hct 34.4 L MCV 88.3 MCH 30.5 MCHC 34.6 RDW 14.7 Plt Count 268 MPV 7.9 Sodium 140 Potassium 3.8 Chloride 106 Carbon Dioxide 29 Anion Gap 4 L BUN 10.3 Creatinine 0.7 Est GFR (CKD-EPI)AfAm 143.71 Est GFR (CKD-EPI)NonAf 123.99 Random Glucose 81 Calcium 8.0 L Total Bilirubin 1.2 H AST 12 L ALT 23 Alkaline Phosphatase 60 Total Protein 5.3 L Albumin 2.8 L Labs reviewed Assessment: 04/11/19 16:00 Withdrawal sxs Plan: Continue detox Encouraged PO water intake
--- NOTE | 2019-04-11 17:38 | CONSULT ---
[facility] - Data Date of interview: 04/11/19 Psychiatric History: Patient ws approached at bedside. Told senior writer:" I'm tired, I don't fell like talking". Re consult when patient is willing to talk.
[2019-04-11] MEDS: THIAMINE HCL 100 MG TABLET (FP) PO SCH (22:35)
[2019-04-11] MEDS: METHOCARBAMOL 500 MG TABLET PO PRN (22:36)
[2019-04-11] MEDS: MELATONIN 5 MG TABLETS PO PRN (22:36)
[2019-04-12] MEDS: hydrOXYzine PAMOATE 25 MG CAPSULE (FP) PO PRN (07:08)
[2019-04-12] MEDS: METHOCARBAMOL 500 MG TABLET PO PRN ×2 (07:08→16:07)
[2019-04-12] MEDS ORDERED: METHADONE HCL 10 MG TABLET (FOR DETOX USE ONLY) PO ONE (10:00)
[2019-04-12] MEDS: PRENATAL VITAMINS W/ FOLIC ACID TABLET (FP) PO SCH (10:23)
[2019-04-12] MEDS: NICOTINE 21 MG/24 HOURS TOPICAL PATCH TD SCH (10:24)
--- NOTE | 2019-04-12 11:39 | PN ---
BHS COWS - Scale Resting Pulse: 1= [place] 81-100 Sweatin= No chills or Flushing Restless Observation: 1= Difficult to Sit Still Pupil Size: 1= Pupils >than Normal Bone or Joint Aches: 1= Mild Discomfort Runny Nose/ Eye Tearin= Nasal Congestion GI Upset > 30mins: 1= Stomach Cramp Tremor Observation of Outstretched Hands: 1= Tremor [place], Not Seen Yawning Observation: 1= 1-2x During Session Anxiety or Irritability: 2=Irritable/Anxious Goose Flesh Skin: 0=Smooth Skin COWS Score: 10 S Progress Note (SOAP) Subjective: alert,irritable,anxious,interrupted sleep,pain in the body and back Objective: 04/12/19 11:38 Vital Signs Temperature 97.7 F 04/12/19 09:19 Pulse Rate 85 04/12/19 09:19 Respiratory Rate 20 04/12/19 09:19 Blood Pressure 122/85 04/12/19 09:19 O2 Sat by Pulse Oximetry (%) Laboratory Last Values WBC 7.2 K/mm3 (4.0-10.0) 04/11/19 07:50 RBC 3.89 M/mm3 (4.00-5.60) L 04/11/19 07:50 Hgb 11.9 GM/dL (11.7-16.9) 04/11/19 07:50 Hct 34.4 % (35.4-49) L 04/11/19 07:50 MCV 88.3 fl (80-96) 04/11/19 07:50 MCH 30.5 pg (25.7-33.7) 04/11/19 07:50 MCHC 34.6 g/dl (32.0-35.9) 04/11/19 07:50 RDW 14.7 % (11.9-15.9) 04/11/19 07:50 Plt Count 268 K/MM3 (134-434) 04/11/19 07:50 MPV 7.9 fl (7.5-11.1) 04/11/19 07:50 Sodium 140 mmol/L (136-145) 04/11/19 07:50 Potassium 3.8 mmol/L (3.5-5.1) 04/11/19 07:50 Chloride 106 mmol/L (98-107) 04/11/19 07:50 Carbon Dioxide 29 mmol/L (21-32) 04/11/19 07:50 Anion Gap 4 MMOL/L (8-16) L 04/11/19 07:50 BUN 10.3 mg/dL (7-18) 04/11/19 07:50 Creatinine 0.7 mg/dL (0.55-1.3) 04/11/19 07:50 Est GFR (CKD-EPI)AfAm 143.71 04/11/19 07:50 Est GFR (CKD-EPI)NonAf 123.99 04/11/19 07:50 Random Glucose 81 mg/dL (74-106) 04/11/19 07:50 Calcium 8.0 mg/dL (8.5-10.1) L 04/11/19 07:50 Total Bilirubin 1.2 mg/dL (0.2-1) H 04/11/19 07:50 AST 12 U/L (15-37) L 04/11/19 07:50 ALT 23 U/L (13-61) 04/11/19 07:50 Alkaline Phosphatase 60 U/L (45-117) 04/11/19 07:50 Total Protein 5.3 g/dl (6.4-8.2) L 04/11/19 07:50 Albumin 2.8 g/dl (3.4-5.0) L 04/11/19 07:50 Assessment: 04/12/19 11:39 withdrawal symptom Plan: continue detox ,methadone regimen
[2019-04-12] MEDS: THIAMINE HCL 100 MG TABLET (FP) PO SCH (22:22)
[2019-04-13] MEDS: MELATONIN 5 MG TABLETS PO PRN (01:36)
[2019-04-13] MEDS: METHOCARBAMOL 500 MG TABLET PO PRN (01:36)
[2019-04-13] MEDS: hydrOXYzine PAMOATE 25 MG CAPSULE (FP) PO PRN ×2 (01:36→10:56)
[2019-04-13] MEDS: ALBUTEROL SO4 8 GM HFA INHALER IH PRN (01:36)
[2019-04-13] MEDS ORDERED: METHADONE HCL 10 MG TABLET (FOR DETOX USE ONLY) ONE (09:19)
[2019-04-13] MEDS ORDERED: METHADONE HCL 5 MG TABLET (FOR DETOX USE ONLY) ONE (09:19)
[2019-04-13] MEDS ORDERED: METHADONE (DETOX) 10 MG, METHADONE (DETOX) 5 MG PO ONE (10:00)
[2019-04-13] MEDS: PRENATAL VITAMINS W/ FOLIC ACID TABLET (FP) PO SCH (10:54)
[2019-04-13] MEDS: NICOTINE 21 MG/24 HOURS TOPICAL PATCH TD SCH (10:54)
--- NOTE | 2019-04-13 12:53 | PN ---
BHS COWS - Scale Resting Pulse: 0= [place] 80 or Below Sweatin= No chills or Flushing Restless Observation: 0= Sits Still Pupil Size: 1= Pupils >than Normal Bone or Joint Aches: 1= Mild Discomfort Runny Nose/ Eye Tearin= Nasal Congestion GI Upset > 30mins: 1= Stomach Cramp Tremor Observation of Outstretched Hands: 1= Tremor [place], Not Seen Yawning Observation: 1= 1-2x During Session Anxiety or Irritability: 2=Irritable/Anxious Goose Flesh Skin: 0=Smooth Skin COWS Score: 8 BHS Progress Note (SOAP) Subjective: alert,irritable,anxious,interrupted sleep,pain in the body Objective: 04/13/19 12:51 Vital Signs Temperature 96.8 F L 04/13/19 09:22 Pulse Rate 73 04/13/19 09:22 Respiratory Rate 18 04/13/19 09:22 Blood Pressure 139/81 04/13/19 09:22 O2 Sat by Pulse Oximetry (%) Assessment: 04/13/19 12:51 withdrawal symptom Plan: continue detox methadone regimen
[2019-04-13] MEDS: THIAMINE HCL 100 MG TABLET (FP) PO SCH (22:41)
[2019-04-14] MEDS: METHOCARBAMOL 500 MG TABLET PO PRN ×2 (01:22→22:21)
[2019-04-14] MEDS: hydrOXYzine PAMOATE 25 MG CAPSULE (FP) PO PRN ×2 (01:22→22:22)
[2019-04-14] MEDS: MELATONIN 5 MG TABLETS PO PRN ×2 (01:22→22:21)
[2019-04-14] MEDS ORDERED: METHADONE HCL 10 MG TABLET (FOR DETOX USE ONLY) PO ONE (10:00)
[2019-04-14] MEDS: PRENATAL VITAMINS W/ FOLIC ACID TABLET (FP) PO SCH (10:13)
[2019-04-14] MEDS: NICOTINE 21 MG/24 HOURS TOPICAL PATCH TD SCH (10:14)
[2019-04-14] MEDS: ALBUTEROL SO4 8 GM HFA INHALER IH PRN (10:14)
--- NOTE | 2019-04-14 13:55 | PN ---
BHS COWS - Scale Resting Pulse: 1= [place] 81-100 Sweatin= No chills or Flushing Restless Observation: 1= Difficult to Sit Still Pupil Size: 0= Normal to Room Light Bone or Joint Aches: 1= Mild Discomfort Runny Nose/ Eye Tearin= Nasal Congestion GI Upset > 30mins: 1= Stomach Cramp Tremor Observation of Outstretched Hands: 1= Tremor [place], Not Seen Yawning Observation: 1= 1-2x During Session Anxiety or Irritability: 1=Feels Anxious/Irritable Goose Flesh Skin: 0=Smooth Skin COWS Score: 8 BHS Progress Note (SOAP) Subjective: alert,interrupted sleep, Objective: 04/14/19 13:54 Vital Signs Temperature 98.4 F 04/14/19 13:39 Pulse Rate 88 04/14/19 13:39 Respiratory Rate 18 04/14/19 13:39 Blood Pressure 115/62 04/14/19 13:39 O2 Sat by Pulse Oximetry (%) Assessment: 04/14/19 13:54 withdrawal symptom Plan: continue detox,discharge in am
[2019-04-14] MEDS: THIAMINE HCL 100 MG TABLET (FP) PO SCH (22:21)
[2019-04-15] MEDS ORDERED: METHADONE HCL 5 MG TABLET (FOR DETOX USE ONLY) PO ONE (06:00)
--- NOTE | 2019-04-15 09:20 | DS ---
[facility] Detox Discharge Summary Admission Date: 04/10/19 Discharge Date: 04/15/19 - History Present History: Opioid Dependence - Physical Exam Results Vital Signs: Vital Signs Temperature 97.3 F L 04/15/19 05:49 Pulse Rate 71 04/15/19 05:49 Respiratory Rate 18 04/15/19 05:49 Blood Pressure 144/77 04/15/19 05:49 O2 Sat by Pulse Oximetry (%) Pertinent Admission Physical Exam Findings: pt arrived in withdrawals Vital Signs Temperature 97.3 F L 04/15/19 05:49 Pulse Rate 71 04/15/19 05:49 Respiratory Rate 18 04/15/19 05:49 Blood Pressure 144/77 04/15/19 05:49 O2 Sat by Pulse Oximetry (%) Laboratory Tests 04/11/19 04/11/19 07:50 07:50 WBC 7.2 RBC 3.89 L Hgb 11.9 Hct 34.4 L MCV 88.3 MCH 30.5 MCHC 34.6 RDW 14.7 Plt Count 268 MPV 7.9 Sodium 140 Potassium 3.8 Chloride 106 Carbon Dioxide 29 Anion Gap 4 L BUN 10.3 Creatinine 0.7 Est GFR (CKD-EPI)AfAm 143.71 Est GFR (CKD-EPI)NonAf 123.99 Random Glucose 81 Calcium 8.0 L Total Bilirubin 1.2 H AST 12 L ALT 23 Alkaline Phosphatase 60 Total Protein 5.3 L Albumin 2.8 L - Treatment Hospital Course: Detox Protocol Followed, Detoxed Safely, Responded well, Discharged Condition Good, Rehab Referral Accepted - Medication Discharge Medications: Ambulatory Orders Ibuprofen 600 mg PO QID PRN 12/09/18 Oxymetazoline 0.05% Nasal Soln [Afrin -] 2 spray NS BID 12/09/18 Albuterol Sulfate Inhaler - [Ventolin HFA Inhaler -] 2 puff IH Q4H PRN #1 inhaler 12/14/18 - Diagnosis (1) Opioid dependence with withdrawal Current Visit: Yes Status: Chronic (2) Asthma Current Visit: Yes Status: Chronic Qualifiers: Asthma severity: mild Asthma persistence: intermittent Asthma complication type: with status asthmaticus Qualified Code(s): J45.22 - Mild intermittent asthma with status asthmaticus (3) Nicotine dependence Current Visit: Yes Status: Chronic Qualifiers: Nicotine product type: cigarettes Substance use status: uncomplicated Qualified Code(s): F17.210 - Nicotine dependence, cigarettes, uncomplicated (4) Depressed affect Current Visit: Yes Status: Suspected (5) Substance-induced anxiety disorder Current Visit: Yes Status: Suspected (6) Substance-induced sleep disorder Current Visit: Yes Status: Suspected (7) Anxiety Current Visit: No Status: Acute (8) Substance-induced sleep disorder Current Visit: No Status: Acute (9) Insomnia Current Visit: No Status: Suspected Qualifiers: Insomnia type: unspecified Qualified Code(s): G47.00 - Insomnia, unspecified - AMA Did Patient Leave Against Medical Advice: No
[2019-04-15 10:23] VITALS: BP 125/77; PULSE 92; TEMP 98.2
[2019-04-15] MEDS: NICOTINE 21 MG/24 HOURS TOPICAL PATCH TD SCH (10:37)
[2019-04-15] MEDS: PRENATAL VITAMINS W/ FOLIC ACID TABLET (FP) PO SCH (10:37)
== END 2019-04-15 12:58 | disposition home or self-care (01) | DRG 773 ==
LOC: YASAS 14:41 → Y6N 22:53
PROVIDERS: ADMIT Allergy & Immunology; ATTEND Allergy & Immunology
PROC: HZ2ZZZZ Detoxification Services for Substance Abuse Treatment (ICD-10-PCS; principal; 2019-04-10)
DX: F11.23 Opioid dependence with withdrawal (principal); F17.213 Nicotine dependence, cigarettes, with withdrawal; F19.280 Other psychoactive substance dependence with psychoactive substance-induced anxiety disorder; F19.282 Other psychoactive substance dependence with psychoactive substance-induced sleep disorder; F41.9 Anxiety disorder, unspecified; J45.22 Mild intermittent asthma with status asthmaticus; G47.00 Insomnia, unspecified; R45.89 Other symptoms and signs involving emotional state
CPT/HCPCS: 36415; 80053; 85027

== ENCOUNTER 2019-05-09 11:56 | Inpatient (IN) | payer OTHER ==
--- NOTE | 2019-05-09 13:32 | HP ---
COWS - Scale Resting Pulse: 1= [place] 81-100 Sweatin= Chills/Flushing Restless Observation: 3= Extraneous Movement Pupil Size: 0= Normal to Room Light Bone or Joint Aches: 2= Severe Diffuse Aches Runny Nose/ Eye Tearin= Runny Nose/Eyes GI Upset > 30mins: 1= Stomach Cramp Tremor Observation: 0= None Yawning Observation: 0= None Anxiety or Irritability: 2=Irritable/Anxious Goose Flesh Skin: 0=Smooth Skin COWS Score: 12 CIWA Score - Admission Criteria OASAS Guidelines: Admission for Medically Managed Detox: Requires at least one of the followin. CIWA greater than 12 2. Seizures within the past 24 hours 3. Delirium tremens within the past 24 hours 4. Hallucinations within the past 24 hours 5. Acute intervention needed for co occurring medical disorder 6. Acute intervention needed for co occurring psychiatric disorder 7. Severe withdrawal that cannot be handled at a lower level of care (continued vomiting, continued diarrhea, abnormal vital signs) requiring intravenous medication and/or fluids 8. Admitting History and Physical - Smoking History Smoking history: Current every day smoker Have you smoked in the past 12 months: Yes Aproximately how many cigarettes per day: 20 - Alcohol/Substance Use Hx Alcohol Use: No Admission ROS [facility] Allergies/Adverse Reactions: Allergies Allergy/AdvReac Type Severity Reaction Status Date / Time No Known Allergies Allergy Verified 05/09/19 14:08 History of Present Illness: Search Terms: star jimenez, 1985 Search Date: 05/09/2019 01:25:19 PM The Drug Utilization Report below displays all of the controlled substance prescriptions, if any, that your patient has filled in the last twelve months. The information displayed on this report is compiled from pharmacy submissions to the Department, and accurately reflects the information as submitted by the pharmacies. This report was requested by: Alayna Lara | Reference #: [id number] There are no results for the search terms that you entered. pt here requesting detox from heroin use , claims 2 bundles/day via inhalation , latest use yesterday 9 pm , mtd illicit use " it depends " most recently 1 week ago 30-40 mg fentanyl - denies use denies crystal methamphetamine use denies other illicits tobacco : 1 ppd pmhx : asthma ( hosp 1 yr ago ) PSHX : denies Psych : denies Exam Limitations: Clinical Condition - Ebola screening Have you traveled outside of the country in the last 21 days: No (N) Have you had contact with anyone from an Ebola affected area: No Do you have a fever: No - Review of Systems Constitutional: Chills, Loss of Appetite EENT: reports: Nose Congestion Respiratory: reports: Shortness of Breath Cardiac: reports: Chest Pain (with deep breathing - retro-sternal) GI: reports: See HPI : reports: No Symptoms Reported Musculoskeletal: reports: Muscle Pain Integumentary: reports: No Symptoms Reported Neuro: reports: Headache Endocrine: reports: No Symptoms Reported Hematology: reports: No Symptoms Reported Psychiatric: reports: Orientated x3, Agitated, Anxious Patient History - Patient Medical History Hx Anemia: No Hx Asthma: Yes Hx Chronic Obstructive Pulmonary Disease (COPD): No Hx Cancer: No Hx Cardiac Disorders: No Hx Congestive Heart Failure: No Hx Hypertension: No Hx Hypercholesterolemia: No Hx Pacemaker: No HX Cerebrovascular Accident: No Hx Seizures: No Hx Dementia: No Hx Diabetes: No Hx Gastrointestinal Disorders: No Hx Liver Disease: No Hx Genitourinary Disorders: No Hx Sexually Transmitted Disorders: No Hx Renal Disease (ESRD): No Hx Thyroid Disease: No Hx Human Immunodeficiency Virus (HIV): No Hx Hepatitis C: No Hx Depression: No Hx Suicide Attempt: No Hx Bipolar Disorder: No Hx Schizophrenia: No - Patient Surgical History Past Surgical History: No Hx Neurologic Surgery: No Hx Cataract Extraction: No Hx Cardiac Surgery: No Hx Lung Surgery: No Hx Breast Surgery: No Hx Breast Biopsy: No Hx Abdominal Surgery: No Hx Appendectomy: No Hx Cholecystectomy: No Hx Genitourinary Surgery: No Hx Section: No Hx Orthopedic Surgery: No Hx Hysterectomy: No Anesthesia Reaction: No - PPD History Date: 11/30/17 Results: 0 mm - Smoking Cessation Smoking history: Current every day smoker Have you smoked in the past 12 months: Yes Aproximately how many cigarettes per day: 20 Cigars Per Day: 0 Hx Chewing Tobacco Use: No Initiated information on smoking cessation: Yes 'Breaking Loose' booklet given: 05/09/19 - Substances abused Heroin Substance route: Inhalation Frequency: Daily Amount used: 20 bags Age of first use: 28 Date of last use: 05/08/19 Admission Physical Exam BHS - Vital Signs Vital Signs: Vital Signs - 24 hr 05/09/19 13:01 Temperature 97.7 F Pulse Rate 95 H Respiratory 16 Rate Blood Pressure 124/80 - Physical General Appearance: Yes: Mild Distress, Anxious HEENTM: Yes: EOMI, Hearing grossly Normal, Normocephalic, Nasal Congestion, Rhinorrhea, Muffled/Hoarse Voice Respiratory: Yes: Chest Non-Tender, No Respiratory Distress, No Accessory Muscle Use, Wheezing (throughout all lung stark), Expiration, Other (pt reported feeling better after nebulizer tx , repeat O2 sat on RA 91%) Neck: Yes: No masses,lesions,Nodules, Trachea in good position Cardiology: Yes: Regular Rhythm, Regular Rate, S1, S2 Abdominal: Yes: Non Tender, Soft Musculoskeletal: Yes: Gait Steady Extremities: Yes: Normal Range of Motion, Non-Tender Neurological: Yes: Fully Oriented, Alert, Motor Strength 5/5, Depressed Affect Integumentary: Yes: Warm - Diagnostic (1) Nicotine dependence Current Visit: Yes Status: Chronic Qualifiers: Nicotine product type: cigarettes Substance use status: uncomplicated Qualified Code(s): F17.210 - Nicotine dependence, cigarettes, uncomplicated (2) Opioid dependence with withdrawal Current Visit: Yes Status: Chronic Breathalyzer - Breathalyzer Breathalyzer: 0 Urine Drug Screen - Test Device Lot number: [id number] Expiration date: 01/06/21 - Control Is test valid?: Yes - Results Drug screen NEGATIVE: No Urine drug screen results: MET-Methamphetamine, FEN-Fentanyl, MOP-Opiates, MTD- Methadone Inpatient Rehab Admission - Rehab Decision to Admit Inpatient rehab admission?: No
[2019-05-09] MEDS ORDERED: IBUPROFEN 400 MG TABLET (FP) PO PRN (14:54)
[2019-05-09] MEDS ORDERED: BISMUTH SUBSALICYLATE 524 MG/30 ML UD PO PRN (14:54)
[2019-05-09] MEDS ORDERED: MAGNESIUM HYDROX 2400MG/30ML ORAL SUSPENSION 30 ML CUP PO PRN (14:54)
[2019-05-09] MEDS ORDERED: P-EPHED 60MG/TRIPROLIDI 2.5MG TABLET PO PRN (14:54)
[2019-05-09] MEDS ORDERED: ACETAMINOPHEN 325 MG TABLET (FP) PO PRN ×2 (14:54)
[2019-05-09] MEDS ORDERED: MAG HYDROX/AL HYDROX/SIMETH 30 ML UNIT-DOSE CUP PO PRN (14:54)
[2019-05-09] MEDS ORDERED: MENTHOL/PHENOL 1 EACH UD MM PRN (14:54)
[2019-05-09] MEDS ORDERED: MAGNESIUM CITRATE 300 ML BOTTLE PO PRN (14:54)
[2019-05-09] MEDS ORDERED: METHADONE HCL 10 MG TABLET (FOR DETOX USE ONLY) PO ONE (14:56)
[2019-05-09] MEDS: METHOCARBAMOL 500 MG TABLET PO PRN ×2 (15:46→22:23)
[2019-05-09 16:37] VITALS: BMI 25.2
[2019-05-09] MEDS: ALBUTEROL SO4 8 GM HFA INHALER IH PRN (17:34)
[2019-05-09] MEDS: ALBUTEROL SO4 0.083% IH SOL 2.5 MG/3 ML VIAL.NEB. NEB PRN ×2 (18:23→22:48)
[2019-05-09] MEDS: THIAMINE HCL 100 MG TABLET (FP) PO SCH (22:22)
[2019-05-09] MEDS: hydrOXYzine PAMOATE 25 MG CAPSULE (FP) PO PRN (22:23)
[2019-05-09] MEDS: cloNIDine HCL 0.1 MG TABLET PO PRN (22:23)
[2019-05-09] MEDS: MELATONIN 5 MG TABLETS PO PRN (22:24)
[2019-05-10] MEDS: ALBUTEROL SO4 8 GM HFA INHALER IH PRN ×2 (04:43→16:57)
[2019-05-10] MEDS: ALBUTEROL SO4 0.083% IH SOL 2.5 MG/3 ML VIAL.NEB. NEB PRN ×2 (04:49→09:05)
[2019-05-10] MEDS ORDERED: METHADONE HCL 10 MG TABLET (FOR DETOX USE ONLY) ONE (08:39)
[2019-05-10] MEDS ORDERED: METHADONE HCL 5 MG TABLET (FOR DETOX USE ONLY) ONE (08:40)
[2019-05-10] MEDS ORDERED: METHADONE (DETOX) 20 MG, METHADONE (DETOX) 5 MG PO ONE (10:00)
[2019-05-10 10:15] LABS: BASO % 0.5 % (0-2.0); EOS % 6.8 % (0-4.5); HEMATOCRIT 38.2 % (35.4-49); HEMOGLOBIN 12.4 GM/dL (11.7-16.9); LYMPH % 20.5 % (8-40); MCH 28.8 pg (25.7-33.7); MCHC 32.5 g/dl (32.0-35.9); MEAN CELL VOLUME 88.6 fl (80-96); MEAN PLT VOLUME 8.1 fl (7.5-11.1); MONO % 8.1 % (3.8-10.2); NEUT % 64.1 % (42.8-82.8); PLATELET COUNT 314 K/MM3 (134-434); RBC 4.31 M/mm3 (4.00-5.60); RDW 14.7 % (11.9-15.9); WHITE BLOOD COUNT 10.2 K/mm3 (4.0-10.0)
[2019-05-10 10:17] LABS: ALBUMIN 3.3 g/dl (3.4-5.0); BILIRUBIN,TOTAL 0.3 mg/dL (0.2-1); BLOOD UREA NITROGEN 11.6 mg/dL (7-18); CALCIUM 8.6 mg/dL (8.5-10.1); CREATININE 0.8 mg/dL (0.55-1.3); POTASSIUM 4.4 mmol/L (3.5-5.1); TOT PROT 6.1 g/dl (6.4-8.2)
[2019-05-10] MEDS: PRENATAL VITAMINS W/ FOLIC ACID TABLET (FP) PO SCH (10:34)
[2019-05-10] MEDS: METHOCARBAMOL 500 MG TABLET PO PRN ×2 (10:36→22:20)
--- NOTE | 2019-05-10 12:00 | EKG ---
Test Reason : Blood Pressure : / mmHG Vent. Rate : 078 BPM Atrial Rate : 078 BPM P-R Int : 150 ms QRS Dur : 094 ms QT Int : 372 ms P-R-T Axes : 069 072 055 degrees QTc Int : 424 ms NORMAL SINUS RHYTHM NORMAL ECG WHEN COMPARED WITH ECG OF 09-DEC-2018 13:32, NO SIGNIFICANT CHANGE WAS FOUND Confirmed by DAYAN KULKARNI MD ([id number]) on 05/10/2019 12:00:08 PM Referred By: JIE Confirmed By:DAYAN KULKARNI MD
--- NOTE | 2019-05-10 12:39 | PN ---
BHS COWS - Scale Resting Pulse: 1= [place] 81-100 Sweatin= Chills/Flushing Restless Observation: 0= Sits Still Pupil Size: 1= Pupils >than Normal Bone or Joint Aches: 1= Mild Discomfort Runny Nose/ Eye Tearin= None GI Upset > 30mins: 1= Stomach Cramp Tremor Observation of Outstretched Hands: 2= Slight Tremor Visible Yawning Observation: 0= None Anxiety or Irritability: 2=Irritable/Anxious Goose Flesh Skin: 0=Smooth Skin COWS Score: 9 BHS Progress Note (SOAP) Subjective: 33 years old male admitted on 05/09/19 for opiate withdrawal sx management treated with methadone detox regimen ate breakfast ambulating on hallway discuss medication 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 Objective: 05/10/19 12:36 Vital Signs Temperature 99.0 F 05/10/19 09:20 Pulse Rate 98 H 05/10/19 09:20 Respiratory Rate 18 05/10/19 09:20 Blood Pressure 107/73 05/10/19 09:20 O2 Sat by Pulse Oximetry (%) Laboratory Last Values WBC 10.2 K/mm3 (4.0-10.0) H 05/10/19 07:30 RBC 4.31 M/mm3 (4.00-5.60) 05/10/19 07:30 Hgb 12.4 GM/dL (11.7-16.9) 05/10/19 07:30 Hct 38.2 % (35.4-49) 05/10/19 07:30 MCV 88.6 fl (80-96) 05/10/19 07:30 MCH 28.8 pg (25.7-33.7) 05/10/19 07:30 MCHC 32.5 g/dl (32.0-35.9) 05/10/19 07:30 RDW 14.7 % (11.9-15.9) 05/10/19 07:30 Plt Count 314 K/MM3 (134-434) 05/10/19 07:30 MPV 8.1 fl (7.5-11.1) 05/10/19 07:30 Absolute Neuts (auto) 6.5 K/mm3 (1.5-8.0) 05/10/19 07:30 Neutrophils % 64.1 % (42.8-82.8) 05/10/19 07:30 Lymphocytes % 20.5 % (8-40) 05/10/19 07:30 Monocytes % 8.1 % (3.8-10.2) 05/10/19 07:30 Eosinophils % 6.8 % (0-4.5) H 05/10/19 07:30 Basophils % 0.5 % (0-2.0) 05/10/19 07:30 Nucleated RBC % 0 % (0-0) 05/10/19 07:30 Sodium 138 mmol/L (136-145) 05/10/19 07:30 Potassium 4.4 mmol/L (3.5-5.1) 05/10/19 07:30 Chloride 103 mmol/L (98-107) 05/10/19 07:30 Carbon Dioxide 30 mmol/L (21-32) 05/10/19 07:30 Anion Gap 5 MMOL/L (8-16) L 05/10/19 07:30 BUN 11.6 mg/dL (7-18) 05/10/19 07:30 Creatinine 0.8 mg/dL (0.55-1.3) 05/10/19 07:30 Est GFR (CKD-EPI)AfAm 136.03 05/10/19 07:30 Est GFR (CKD-EPI)NonAf 117.37 05/10/19 07:30 Random Glucose 113 mg/dL (74-106) H 05/10/19 07:30 Calcium 8.6 mg/dL (8.5-10.1) 05/10/19 07:30 Total Bilirubin 0.3 mg/dL (0.2-1) 05/10/19 07:30 AST 12 U/L (15-37) L 05/10/19 07:30 ALT 16 U/L (13-61) 05/10/19 07:30 Alkaline Phosphatase 77 U/L (45-117) 05/10/19 07:30 Total Protein 6.1 g/dl (6.4-8.2) L 05/10/19 07:30 Albumin 3.3 g/dl (3.4-5.0) L 05/10/19 07:30 HIV 1&2 Antibody Screen Negative 05/10/19 07:30 HIV P24 Antigen Negative 05/10/19 07:30 lab noted Assessment: 05/10/19 12:39 opiate withdrawal sx Plan: continue methadone detox regimen
--- NOTE | 2019-05-10 13:17 | CONSULT ---
[facility] Psychiatric Consult - Data Date of interview: 05/10/19 Admission source: [facility] Identifying data: Readmission to [facility] for this 33 y/o male self- referred for detoxification (HERIBERTO issues : heroin, nicotine). Interviewed at [address] [place] [address]. 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 Substance Abuse History: Discussed with patient. Details in current [facility] report as follows : Smoking history: Current every day smoker. Have you smoked in the past 12 months: Yes. Aproximately how many cigarettes per day: 20. Cigars Per Day: 0. Hx Chewing Tobacco Use: No. Initiated information on smoking cessation : Yes. 'Breaking Loose' booklet given: 05/09/19. - Substances abused. Heroin. Substance route: Inhalation. Frequency: Daily. Amount used: 20 bags. Age of first use: 28. Date of last use: 05/08/19 Medical History: Bronchial asthma. Psychiatric History: Patient denies. Physical/Sexual Abuse/Trauma History: Patient denies. Additional Comment: Urine drug screen results: MET-Methamphetamine, FEN-Fentanyl , MOP-Opiates, MTD-Methadone. Noted. Mental Status Exam - Mental Status Exam Alert and Oriented to: Time, Place, Person Cognitive Function: Good Patient Appearance: Well Groomed Mood: Nervous, Withdrawn Affect: Mood Congruent, Constricted Patient Behavior: Fatigued, Appropriate, Cooperative Speech Pattern: Clear Voice Loudness: Normal Thought Process: Intact, Goal Oriented Thought Disorder: Not Present Hallucinations: Denies Suicidal Ideation: Denies Homicidal Ideation: Denies Insight/Judgement: Poor Sleep: Poorly (wants trazodone), Difficulty falling asleep Appetite: Good Muscle strength/Tone: Normal Gait/Station: Normal Psychiatric Findings - Problem List ([place] 1, 2,3) (1) Opioid dependence with withdrawal Current Visit: Yes Status: Acute (2) Nicotine dependence Current Visit: Yes Status: Chronic Qualifiers: Nicotine product type: cigarettes Substance use status: uncomplicated Qualified Code(s): F17.210 - Nicotine dependence, cigarettes, uncomplicated (3) Substance induced mood disorder Current Visit: Yes Status: Chronic (4) Insomnia Current Visit: Yes Status: Chronic Qualifiers: Insomnia type: unspecified Qualified Code(s): G47.00 - Insomnia, unspecified - Initial Treatment Plan Initial Treatment Plan: Psychoeducation. Sleep hygiene. Detoxification. NA meetings. Trazodone 50 mg po hs (patient's request). Patient is made aware of the risk of priapism. Gave verbal consent to MD. Observation.
[2019-05-10] MEDS ORDERED: traZODone HCL 50 MG TABLET (FP) PO SCH (22:00)
[2019-05-10] MEDS: THIAMINE HCL 100 MG TABLET (FP) PO SCH (22:19)
[2019-05-10] MEDS: MELATONIN 5 MG TABLETS PO PRN (22:20)
[2019-05-10] MEDS: cloNIDine HCL 0.1 MG TABLET PO PRN (22:20)
[2019-05-11] MEDS: cloNIDine HCL 0.1 MG TABLET PO PRN ×2 (05:16→13:47)
[2019-05-11] MEDS: METHOCARBAMOL 500 MG TABLET PO PRN ×3 (05:16→22:14)
[2019-05-11] MEDS: ALBUTEROL SO4 0.083% IH SOL 2.5 MG/3 ML VIAL.NEB. NEB PRN ×2 (08:11→19:34)
[2019-05-11] MEDS ORDERED: METHADONE HCL 10 MG TABLET (FOR DETOX USE ONLY) PO ONE (10:00)
--- NOTE | 2019-05-11 10:11 | PN ---
BHS COWS - Scale Resting Pulse: 2= [place] 101-120 Sweatin= Chills/Flushing Restless Observation: 0= Sits Still Pupil Size: 0= Normal to Room Light Bone or Joint Aches: 1= Mild Discomfort Runny Nose/ Eye Tearin= None GI Upset > 30mins: 1= Stomach Cramp Tremor Observation of Outstretched Hands: 1= Tremor [place], Not Seen Yawning Observation: 0= None Anxiety or Irritability: 0= None Goose Flesh Skin: 0=Smooth Skin COWS Score: 6 BHS Progress Note (SOAP) Subjective: 33 years old male admitted on 05/09/19 for opiate withdrawal sx management treated with methadone detox regimen discuss medication assisted treatment program with option of methadone suboxone or vivitrol as pharmacotherapy Objective: 05/11/19 10:13 Vital Signs Temperature 98.7 F 05/11/19 09:12 Pulse Rate 109 H 05/11/19 09:12 Respiratory Rate 18 05/11/19 09:12 Blood Pressure 120/73 05/11/19 09:12 O2 Sat by Pulse Oximetry (%) Laboratory Last Values WBC 10.2 K/mm3 (4.0-10.0) H 05/10/19 07:30 RBC 4.31 M/mm3 (4.00-5.60) 05/10/19 07:30 Hgb 12.4 GM/dL (11.7-16.9) 05/10/19 07:30 Hct 38.2 % (35.4-49) 05/10/19 07:30 MCV 88.6 fl (80-96) 05/10/19 07:30 MCH 28.8 pg (25.7-33.7) 05/10/19 07:30 MCHC 32.5 g/dl (32.0-35.9) 05/10/19 07:30 RDW 14.7 % (11.9-15.9) 05/10/19 07:30 Plt Count 314 K/MM3 (134-434) 05/10/19 07:30 MPV 8.1 fl (7.5-11.1) 05/10/19 07:30 Absolute Neuts (auto) 6.5 K/mm3 (1.5-8.0) 05/10/19 07:30 Neutrophils % 64.1 % (42.8-82.8) 05/10/19 07:30 Lymphocytes % 20.5 % (8-40) 05/10/19 07:30 Monocytes % 8.1 % (3.8-10.2) 05/10/19 07:30 Eosinophils % 6.8 % (0-4.5) H 05/10/19 07:30 Basophils % 0.5 % (0-2.0) 05/10/19 07:30 Nucleated RBC % 0 % (0-0) 05/10/19 07:30 Sodium 138 mmol/L (136-145) 05/10/19 07:30 Potassium 4.4 mmol/L (3.5-5.1) 05/10/19 07:30 Chloride 103 mmol/L (98-107) 05/10/19 07:30 Carbon Dioxide 30 mmol/L (21-32) 05/10/19 07:30 Anion Gap 5 MMOL/L (8-16) L 05/10/19 07:30 BUN 11.6 mg/dL (7-18) 05/10/19 07:30 Creatinine 0.8 mg/dL (0.55-1.3) 05/10/19 07:30 Est GFR (CKD-EPI)AfAm 136.03 05/10/19 07:30 Est GFR (CKD-EPI)NonAf 117.37 05/10/19 07:30 Random Glucose 113 mg/dL (74-106) H 05/10/19 07:30 Calcium 8.6 mg/dL (8.5-10.1) 05/10/19 07:30 Total Bilirubin 0.3 mg/dL (0.2-1) 05/10/19 07:30 AST 12 U/L (15-37) L 05/10/19 07:30 ALT 16 U/L (13-61) 05/10/19 07:30 Alkaline Phosphatase 77 U/L (45-117) 05/10/19 07:30 Total Protein 6.1 g/dl (6.4-8.2) L 05/10/19 07:30 Albumin 3.3 g/dl (3.4-5.0) L 05/10/19 07:30 HIV 1&2 Antibody Screen Negative 05/10/19 07:30 HIV P24 Antigen Negative 05/10/19 07:30 lab noted Assessment: 05/11/19 10:14 opiate withdrawal sx Plan: continue methadone detox regimen
[2019-05-11] MEDS: PRENATAL VITAMINS W/ FOLIC ACID TABLET (FP) PO SCH (10:21)
--- NOTE | 2019-05-11 17:44 | PN ---
[facility] Progress Note Note: Psychiatry Attending's note : Approached by patient. Requests switch to quetiapine. Reason : trazodone not effective. Chronic insomnia : not improved. Discussed sleep hygiene. Side effects/benefits of seroquel are revisited. Previous records ([facility]) reviewed. Past treatment with seroquel : confirmed. Plan : Seroquel 100 mg po hs. Ordered. Mr Carter is in agreement with plan of care. Verbal consent provided by patient.
[2019-05-11] MEDS ORDERED: QUEtiapine FUMARATE 100 MG TABLET (FP) PO SCH (22:00)
[2019-05-11] MEDS: hydrOXYzine PAMOATE 25 MG CAPSULE (FP) PO PRN (22:14)
[2019-05-11] MEDS: THIAMINE HCL 100 MG TABLET (FP) PO SCH (22:15)
[2019-05-11] MEDS: ALBUTEROL SO4 8 GM HFA INHALER IH PRN (22:16)
[2019-05-12] MEDS: METHOCARBAMOL 500 MG TABLET PO PRN (08:23)
[2019-05-12] MEDS ORDERED: METHADONE HCL 5 MG TABLET (FOR DETOX USE ONLY) ONE (08:37)
[2019-05-12] MEDS ORDERED: METHADONE HCL 10 MG TABLET (FOR DETOX USE ONLY) ONE (08:37)
[2019-05-12 09:16] VITALS: BP 122/79; PULSE 86; TEMP 97.2
[2019-05-12] MEDS: PRENATAL VITAMINS W/ FOLIC ACID TABLET (FP) PO SCH (09:44)
[2019-05-12] MEDS ORDERED: METHADONE (DETOX) 10 MG, METHADONE (DETOX) 5 MG PO ONE (10:00)
--- NOTE | 2019-05-12 12:32 | DS ---
[facility] Detox Discharge Summary Admission Date: 05/09/19 Discharge Date: 05/12/19 - History Present History: Opioid Dependence Additional Comments: 33 years old male admitted on 05/09/19 for opiate withdrawal sx management treated with methadone detox regimen patient is alert oriented x 3 ambulating steady gait speech clearly coherently patient insists to leave the detox unit without apparent reason - Physical Exam Results Vital Signs: Vital Signs Temperature 97.2 F L 05/12/19 09:16 Pulse Rate 86 05/12/19 09:16 Respiratory Rate 18 05/12/19 09:16 Blood Pressure 122/79 05/12/19 09:16 O2 Sat by Pulse Oximetry (%) 94 L 05/11/19 20:04 Pertinent Admission Physical Exam Findings: opiate withdrawal sx Laboratory Last Values WBC 10.2 K/mm3 (4.0-10.0) H 05/10/19 07:30 RBC 4.31 M/mm3 (4.00-5.60) 05/10/19 07:30 Hgb 12.4 GM/dL (11.7-16.9) 05/10/19 07:30 Hct 38.2 % (35.4-49) 05/10/19 07:30 MCV 88.6 fl (80-96) 05/10/19 07:30 MCH 28.8 pg (25.7-33.7) 05/10/19 07:30 MCHC 32.5 g/dl (32.0-35.9) 05/10/19 07:30 RDW 14.7 % (11.9-15.9) 05/10/19 07:30 Plt Count 314 K/MM3 (134-434) 05/10/19 07:30 MPV 8.1 fl (7.5-11.1) 05/10/19 07:30 Absolute Neuts (auto) 6.5 K/mm3 (1.5-8.0) 05/10/19 07:30 Neutrophils % 64.1 % (42.8-82.8) 05/10/19 07:30 Lymphocytes % 20.5 % (8-40) 05/10/19 07:30 Monocytes % 8.1 % (3.8-10.2) 05/10/19 07:30 Eosinophils % 6.8 % (0-4.5) H 05/10/19 07:30 Basophils % 0.5 % (0-2.0) 05/10/19 07:30 Nucleated RBC % 0 % (0-0) 05/10/19 07:30 Sodium 138 mmol/L (136-145) 05/10/19 07:30 Potassium 4.4 mmol/L (3.5-5.1) 05/10/19 07:30 Chloride 103 mmol/L (98-107) 05/10/19 07:30 Carbon Dioxide 30 mmol/L (21-32) 05/10/19 07:30 Anion Gap 5 MMOL/L (8-16) L 05/10/19 07:30 BUN 11.6 mg/dL (7-18) 05/10/19 07:30 Creatinine 0.8 mg/dL (0.55-1.3) 05/10/19 07:30 Est GFR (CKD-EPI)AfAm 136.03 05/10/19 07:30 Est GFR (CKD-EPI)NonAf 117.37 05/10/19 07:30 Random Glucose 113 mg/dL (74-106) H 05/10/19 07:30 Calcium 8.6 mg/dL (8.5-10.1) 05/10/19 07:30 Total Bilirubin 0.3 mg/dL (0.2-1) 05/10/19 07:30 AST 12 U/L (15-37) L 05/10/19 07:30 ALT 16 U/L (13-61) 05/10/19 07:30 Alkaline Phosphatase 77 U/L (45-117) 05/10/19 07:30 Total Protein 6.1 g/dl (6.4-8.2) L 05/10/19 07:30 Albumin 3.3 g/dl (3.4-5.0) L 05/10/19 07:30 HIV 1&2 Antibody Screen Negative 05/10/19 07:30 HIV P24 Antigen Negative 05/10/19 07:30 lab noted - Treatment Hospital Course: Detox Protocol Followed, Responded well Patient has Accepted a Rehab Referral to: community support approach - Medication Discharge Medications: Ambulatory Orders Ibuprofen 600 mg PO QID PRN 12/09/18 Oxymetazoline 0.05% Nasal Soln [Afrin -] 2 spray NS BID 07/03/19 Albuterol Sulfate Inhaler - [Ventolin HFA Inhaler -] 2 puff IH Q4H PRN #1 inhaler 12/14/18 Naloxone HCl [Narcan] 4 mg NS ASDIR PRN #1 spray 05/10/19 - Diagnosis (1) Opioid dependence with withdrawal Status: Acute (2) Asthma Status: Chronic Qualifiers: Asthma severity: mild Asthma persistence: intermittent Asthma complication type: with status asthmaticus Qualified Code(s): J45.22 - Mild intermittent asthma with status asthmaticus (3) Nicotine dependence Status: Acute Qualifiers: Nicotine product type: cigarettes Substance use status: in withdrawal Qualified Code(s): F17.213 - Nicotine dependence, cigarettes, with withdrawal (4) Substance induced mood disorder Status: Suspected - AMA Did Patient Leave Against Medical Advice: Yes
[2019-05-13] MEDS ORDERED: METHADONE HCL 10 MG TABLET (FOR DETOX USE ONLY) PO ONE (10:00)
[2019-05-14] MEDS ORDERED: METHADONE HCL 5 MG TABLET (FOR DETOX USE ONLY) PO ONE (06:00)
== END 2019-05-12 11:41 | disposition left against medical advice (07) | DRG 770 ==
LOC: YASAS 11:56 → Y3N 13:44
PROVIDERS: ADMIT Allergy & Immunology; ATTEND Allergy & Immunology
PROC: HZ2ZZZZ Detoxification Services for Substance Abuse Treatment (ICD-10-PCS; principal; 2019-05-09)
DX: F11.23 Opioid dependence with withdrawal (principal); F17.210 Nicotine dependence, cigarettes, uncomplicated; F19.24 Other psychoactive substance dependence with psychoactive substance-induced mood disorder; J45.22 Mild intermittent asthma with status asthmaticus
CPT/HCPCS: 36415; 80053; 85025; 87389; 93005; 93010; 94640; J0735

== ENCOUNTER 2019-05-22 17:41 | Inpatient (IN) | payer OTHER ==
[2019-05-22 18:34] VITALS: BMI 25.0
--- NOTE | 2019-05-22 20:24 | HP ---
COWS - Scale Resting Pulse: 1= [place] 81-100 Sweatin=Flushed/Facial Moisture Restless Observation: 1= Difficult to Sit Still Pupil Size: 0= Normal to Room Light Bone or Joint Aches: 4=Acute Joint/Muscle Pain Runny Nose/ Eye Tearin= Nasal Congestion GI Upset > 30mins: 2= Nausea/Diarrhea Tremor Observation: 0= None Yawning Observation: 0= None Anxiety or Irritability: 2=Irritable/Anxious Goose Flesh Skin: 0=Smooth Skin COWS Score: 13 CIWA Score - Admission Criteria [facility] Guidelines: Admission for Medically Managed Detox: Requires at least one of the followin. CIWA greater than 12 2. Seizures within the past 24 hours 3. Delirium tremens within the past 24 hours 4. Hallucinations within the past 24 hours 5. Acute intervention needed for co occurring medical disorder 6. Acute intervention needed for co occurring psychiatric disorder 7. Severe withdrawal that cannot be handled at a lower level of care (continued vomiting, continued diarrhea, abnormal vital signs) requiring intravenous medication and/or fluids 8. Admitting History and Physical - Smoking History Smoking history: Current every day smoker Have you smoked in the past 12 months: Yes Aproximately how many cigarettes per day: 20 - Alcohol/Substance Use Hx Alcohol Use: No Admission ROS BHS - HPI Chief Complaint: seeking detox from heroin Allergies/Adverse Reactions: Allergies Allergy/AdvReac Type Severity Reaction Status Date / Time No Known Allergies Allergy Verified 05/09/19 14:08 History of Present Illness: HERE FOR HEROIN DETOX. CLIENT IS SELF REFERRED. KNOWN TO PROGRAM AMA 10 DAYS AGO. CLIENT STATES HE WAS EXPERIENCING UNCONTROLLABLE WITHDRAWAL THAT WAS NOT RELIEVED WITH TAPER AND AMA. HE KNOW PRESENTS WITH C/O WITHDRAWAL SX'S. STATES USING APPROX 1/2 LESS THAN WHAT HE WAS USING ON PREVIOUS ADMISSION. STATES LAST USE OF HEROIN 1 NIGHT AGO. DENIES IVDU, DRUG OVERDOSE, SEIZURES, BLACKOUTS. LIVES WITH FAMILY, UNEMPLOYED, DENIES LEGALS. UTOX + MTD. CLIENT DENIES PROGRAM STATES USES STREET MTD INTERMITTENTLY. Exam Limitations: No Limitations - Ebola screening Have you traveled outside of the country in the last 21 days: No (N) Have you had contact with anyone from an Ebola affected area: No Do you have a fever: No - Review of Systems Constitutional: Chills, Loss of Appetite, Malaise, Night Sweats, Changes in sleep EENT: reports: Nose Congestion, Dental Problems (TOOTH PAIN) Respiratory: reports: No Symptoms reported Cardiac: reports: No Symptoms Reported GI: reports: Nausea, Poor Appetite, Poor Fluid Intake : reports: No Symptoms Reported Musculoskeletal: reports: Back Pain Integumentary: reports: No Symptoms Reported Neuro: reports: No Symptoms reported Endocrine: reports: No Symptoms Reported Hematology: reports: No Symptoms Reported Psychiatric: reports: Orientated x3, Agitated (IRRITABLE), Anxious Other Systems: Reviewed and Negative Patient History - Patient Medical History Hx Anemia: No Hx Asthma: Yes Hx Chronic Obstructive Pulmonary Disease (COPD): No Hx Cancer: No Hx Cardiac Disorders: No Hx Congestive Heart Failure: No Hx Hypertension: No Hx Hypercholesterolemia: No Hx Pacemaker: No HX Cerebrovascular Accident: No Hx Seizures: No Hx Dementia: No Hx Diabetes: No Hx Gastrointestinal Disorders: No Hx Liver Disease: No Hx Genitourinary Disorders: No Hx Sexually Transmitted Disorders: No Hx Renal Disease (ESRD): No Hx Thyroid Disease: No Hx Human Immunodeficiency Virus (HIV): No Hx Hepatitis C: No Hx Depression: No Hx Suicide Attempt: No Hx Bipolar Disorder: No Hx Schizophrenia: No Other Medical History: DENIES - Patient Surgical History Past Surgical History: No Hx Neurologic Surgery: No Hx Cataract Extraction: No Hx Cardiac Surgery: No Hx Lung Surgery: No Hx Breast Surgery: No Hx Breast Biopsy: No Hx Abdominal Surgery: No Hx Appendectomy: No Hx Cholecystectomy: No Hx Genitourinary Surgery: No Hx Section: No Hx Orthopedic Surgery: No Hx Hysterectomy: No Anesthesia Reaction: No - PPD History Previous Implant?: Yes Documented Results: Negative w/proof Implanted On Prior [facility] Admission?: Yes Date: 11/30/17 Results: 0 mm PPD to be Administered?: Yes - Smoking Cessation Smoking history: Current every day smoker Have you smoked in the past 12 months: Yes Aproximately how many cigarettes per day: 20 Cigars Per Day: 0 Hx Chewing Tobacco Use: No Initiated information on smoking cessation: Yes 'Breaking Loose' booklet given: 05/22/19 - Substance & Tx. History Hx Alcohol Use: Yes Hx Substance Use: Yes Substance Use Type: Heroin Hx Substance Use Treatment: Yes ([facility]) - Substances abused Heroin Substance route: Inhalation Frequency: Daily Amount used: 8 bags Age of first use: 28 Date of last use: 05/21/19 Admission Physical Exam [facility] - Vital Signs Vital Signs: Vital Signs - 24 hr 05/22/19 18:26 Temperature 99.4 F Pulse Rate 96 H Respiratory 18 Rate Blood Pressure 130/88 - Physical General Appearance: Yes: Moderate Distress, Irritable, Sweating, Anxious HEENTM: Yes: EOMI, Normocephalic, Normal Voice, [place], Pharynx Normal, Nasal Congestion, Rhinorrhea Respiratory: Yes: Chest Non-Tender, Lungs Clear, Normal Breath Sounds, No Respiratory Distress, No Accessory Muscle Use Neck: Yes: No masses,lesions,Nodules, Supple, Trachea in good position Breast: Yes: Breasts Symetrical Cardiology: Yes: Regular Rhythm, S1, S2, Tachycardia Abdominal: Yes: Non Tender, Soft, Increased Bowel Sounds Genitourinary: Yes: Within Normal Limits Back: Yes: Normal Inspection Musculoskeletal: Yes: full range of Motion, Gait Steady Extremities: Yes: Normal Capillary Refill, Normal Range of Motion, Non-Tender Neurological: Yes: Fully Oriented, Alert, Motor Strength 5/5, Depressed Affect ( DENIES SI) Integumentary: Yes: Dry, Warm Lymphatic: Yes: Within Normal Limits - Diagnostic (1) Nicotine dependence Current Visit: Yes Status: Chronic Qualifiers: Nicotine product type: cigarettes Substance use status: in withdrawal Qualified Code(s): F17.213 - Nicotine dependence, cigarettes, with withdrawal (2) Opioid dependence with withdrawal Current Visit: Yes Status: Acute (3) Asthma Current Visit: Yes Status: Acute Qualifiers: Asthma severity: mild Asthma persistence: intermittent Asthma complication type: with status asthmaticus Qualified Code(s): J45.22 - Mild intermittent asthma with status asthmaticus (4) Substance induced mood disorder Current Visit: Yes Status: Chronic Cleared for Admission [facility] - Detox or Rehab [facility] Level of Care: Medically Managed Detox Regimen/Protocol: Methadone Claeared for Rehab Admission: No Breathalyzer - Breathalyzer Breathalyzer: 0 Urine Drug Screen - Test Device Lot number: [id number] Expiration date: 01/05/21 - Control Is test valid?: Yes - Results Drug screen NEGATIVE: No Urine drug screen results: FEN-Fentanyl, MOP-Opiates, MTD-Methadone Inpatient Rehab Admission - Rehab Decision to Admit Inpatient rehab admission?: No
[2019-05-22] MEDS ORDERED: METHADONE HCL 10 MG TABLET (FOR DETOX USE ONLY) PO ONE (20:28)
[2019-05-22] MEDS ORDERED: ALBUTEROL SO4 8 GM HFA INHALER IH PRN (20:28)
[2019-05-22] MEDS ORDERED: BISMUTH SUBSALICYLATE 524 MG/30 ML UD PO PRN (20:28)
[2019-05-22] MEDS ORDERED: DICYCLOMINE HCL 10 MG CAPSULE PO PRN (20:28)
[2019-05-22] MEDS ORDERED: guaiFENesin 200 MG/10 ML 10 ML UNIT-DOSE CUPS PO PRN (20:28)
[2019-05-22] MEDS ORDERED: P-EPHED 60MG/TRIPROLIDI 2.5MG TABLET PO PRN (20:28)
[2019-05-22] MEDS ORDERED: MELATONIN 5 MG TABLETS PO PRN (20:28)
[2019-05-22] MEDS ORDERED: MAGNESIUM HYDROX 2400MG/30ML ORAL SUSPENSION 30 ML CUP PO PRN (20:28)
[2019-05-22] MEDS ORDERED: MAG HYDROX/AL HYDROX/SIMETH 30 ML UNIT-DOSE CUP PO PRN (20:28)
[2019-05-22] MEDS ORDERED: NICOTINE POLACRILEX 2 MG GUM BUC PRN (20:28)
[2019-05-22] MEDS ORDERED: MAGNESIUM CITRATE 300 ML BOTTLE PO PRN (20:28)
[2019-05-22] MEDS ORDERED: ACETAMINOPHEN 325 MG TABLET (FP) PO PRN ×2 (20:28)
[2019-05-22] MEDS ORDERED: cloNIDine HCL 0.1 MG TABLET PO PRN (20:28)
[2019-05-22] MEDS ORDERED: NALOXONE HCL 0.4 MG/ML VIAL IM PRN (20:28)
[2019-05-22] MEDS ORDERED: ONDANSETRON *ODT* 4 MG TABLET SL PRN (20:28)
[2019-05-22] MEDS ORDERED: MENTHOL/PHENOL 1 EACH UD MM PRN (20:28)
[2019-05-22] MEDS: hydrOXYzine PAMOATE 25 MG CAPSULE (FP) PO PRN (21:37)
[2019-05-22] MEDS: METHOCARBAMOL 500 MG TABLET PO PRN (21:37)
[2019-05-22] MEDS: THIAMINE HCL 100 MG TABLET (FP) PO SCH (21:37)
[2019-05-23] MEDS ORDERED: METHADONE HCL 5 MG TABLET (FOR DETOX USE ONLY) ONE (08:56)
[2019-05-23] MEDS ORDERED: METHADONE HCL 10 MG TABLET (FOR DETOX USE ONLY) ONE (08:56)
[2019-05-23] MEDS: NICOTINE 21 MG/24 HOURS TOPICAL PATCH TD SCH (09:55)
[2019-05-23] MEDS: PRENATAL VITAMINS W/ FOLIC ACID TABLET (FP) PO SCH (09:55)
[2019-05-23] MEDS: METHOCARBAMOL 500 MG TABLET PO PRN (09:57)
[2019-05-23] MEDS ORDERED: METHADONE (DETOX) 20 MG, METHADONE (DETOX) 5 MG PO ONE (10:00)
[2019-05-23 11:23] LABS: PH,URINE 6.5 (5.0-8.0); URINE APPEARANCE CLEAR; URINE BILIRUBIN NEGATIVE (NEGATIVE); URINE COLOR YELLOW; URINE GLUCOSE (UA) NEGATIVE (NEGATIVE); URINE KETONE NEGATIVE (NEGATIVE); URINE LEUK ESTERASE NEGATIVE (NEGATIVE); URINE NITRITE NEGATIVE (NEGATIVE); URINE PROTEIN NEGATIVE (NEGATIVE)
--- NOTE | 2019-05-23 13:42 | PN ---
BHS COWS - Scale Resting Pulse: 1= [place] 81-100 Sweatin= Chills/Flushing Restless Observation: 3= Extraneous Movement Pupil Size: 0= Normal to Room Light Bone or Joint Aches: 2= Severe Diffuse Aches Runny Nose/ Eye Tearin= Runny Nose/Eyes GI Upset > 30mins: 1= Stomach Cramp Tremor Observation of Outstretched Hands: 2= Slight Tremor Visible Yawning Observation: 0= None Anxiety or Irritability: 1=Feels Anxious/Irritable Goose Flesh Skin: 0=Smooth Skin COWS Score: 13 BHS Progress Note (SOAP) Subjective: Back pain, runny nose, chills, interrupted sleep Objective: 05/23/19 13:40 Last Vital Signs Temp Pulse Resp BP Pulse Ox 97.7 F 82 18 144/91 05/23/19 09:18 05/23/19 09:18 05/23/19 09:18 05/23/19 09:18 Elevated b/p 144/91 noted: denies htn, on clonidine prn Laboratory Tests 05/23/19 08:20 Urine Color Yellow Urine Appearance Clear Urine pH 6.5 Ur Specific [place] 1.014 Urine Protein Negative Urine Glucose (UA) Negative Urine Ketones Negative Urine Blood Negative Urine Nitrite Negative Urine Bilirubin Negative Urine Urobilinogen 1.0 Ur Leukocyte Esterase Negative UA noted; 05/10/19 lab results reviewed Assessment: 05/23/19 13:43 Withdrawal sxs Noted with elevated b/p Plan: Continue detox Encouraged PO water intake Elevated b/p without dx of htn: most likely r/t withdrawal, denies htn, continue clonidine prn
--- NOTE | 2019-05-23 15:08 | CONSULT ---
[facility] Psychiatric Consult - Data Date of interview: 05/23/19 Admission source: [facility] Identifying data: Patient is a 33 year old male, father of two, unemployed, domiciled, and is currently supported by his . This is one of multiple admissions for patient. Patient admitted to for opiate dependence. Substance Abuse History: Smoking Cessation. Smoking history: Current every day smoker. Have you smoked in the past 12 months: Yes. Aproximately how many cigarettes per day: 20. Cigars Per Day: 0. Hx Chewing Tobacco Use: No. Initiated information on smoking cessation: Yes. 'Breaking Loose' booklet given : 05/22/19. - Substance & Tx. History. Hx Alcohol Use: Yes. Hx Substance Use : Yes. Substance Use Type: Heroin. Hx Substance Use Treatment: Yes ([facility]). - Substances abused. Heroin. Substance route: Inhalation. Frequency: Daily. Amount used: 8 bags. Age of first use: 28. Date of last use: 05/21/19 Medical History: Asthma. Psychiatric History: Patient denies history of psychiatric hospitalizations, outpatient care, and suicide attempt. Reports only seeing a psychiatrist when admitted to detox/rehab settings. At present patient reports difficulty sleeping. Physical/Sexual Abuse/Trauma History: denies. Mental Status Exam - Mental Status Exam Alert and Oriented to: Time, Place, Person Cognitive Function: Good Patient Appearance: Well Groomed Mood: Withdrawn Affect: Mood Congruent Patient Behavior: Fatigued, Cooperative Speech Pattern: Appropriate Voice Loudness: Mildly Soft/Quiet Thought Process: Goal Oriented Thought Disorder: Not Present Hallucinations: Denies Suicidal Ideation: Denies Homicidal Ideation: Denies Insight/Judgement: Poor Sleep: Poorly Appetite: Fair Muscle strength/Tone: Normal Gait/Station: Normal Psychiatric Findings - Problem List ([place] 1, 2,3) (1) Opioid dependence with withdrawal Current Visit: Yes Status: Acute (2) Substance-induced sleep disorder Current Visit: Yes Status: Acute (3) Nicotine dependence Current Visit: Yes Status: Chronic Qualifiers: Nicotine product type: cigarettes Substance use status: in withdrawal Qualified Code(s): F17.213 - Nicotine dependence, cigarettes, with withdrawal - Initial Treatment Plan Initial Treatment Plan: Psychoeducation provided. Detoxification in progress. Will order Seroquel 100mg HS ( per patients request). He received seroquel 100mg during his previous admission and reports favorable effects. Benefits and side effects discussed. Verbal consent given.
[2019-05-23] MEDS: THIAMINE HCL 100 MG TABLET (FP) PO SCH (22:24)
[2019-05-23] MEDS: QUEtiapine FUMARATE 100 MG TABLET (FP) PO SCH (22:24)
--- NOTE | 2019-05-24 09:45 | PN ---
BHS COWS - Scale Resting Pulse: 0= [place] 80 or Below Sweatin= No chills or Flushing Restless Observation: 1= Difficult to Sit Still Pupil Size: 1= Pupils >than Normal Bone or Joint Aches: 1= Mild Discomfort Runny Nose/ Eye Tearin= Nasal Congestion GI Upset > 30mins: 1= Stomach Cramp Tremor Observation of Outstretched Hands: 2= Slight Tremor Visible Yawning Observation: 1= 1-2x During Session Anxiety or Irritability: 2=Irritable/Anxious Goose Flesh Skin: 0=Smooth Skin COWS Score: 10 BHS Progress Note (SOAP) Subjective: alert,irritable,anxious,interrupted sleep,pain in the body,nausea Objective: 05/24/19 09:44 Vital Signs Temperature 97.2 F L 05/24/19 09:25 Pulse Rate 71 05/24/19 09:25 Respiratory Rate 18 05/24/19 09:25 Blood Pressure 116/69 05/24/19 09:25 O2 Sat by Pulse Oximetry (%) Laboratory Last Values Urine Color Yellow 05/23/19 08:20 Urine Appearance Clear 05/23/19 08:20 Urine pH 6.5 (5.0-8.0) 05/23/19 08:20 Ur Specific [place] 1.014 (1.010-1.035) 05/23/19 08:20 Urine Protein Negative (NEGATIVE) 05/23/19 08:20 Urine Glucose (UA) Negative (NEGATIVE) 05/23/19 08:20 Urine Ketones Negative (NEGATIVE) 05/23/19 08:20 Urine Blood Negative (NEGATIVE) 05/23/19 08:20 Urine Nitrite Negative (NEGATIVE) 05/23/19 08:20 Urine Bilirubin Negative (NEGATIVE) 05/23/19 08:20 Urine Urobilinogen 1.0 mg/dL (0.2-1.0) 05/23/19 08:20 Ur Leukocyte Esterase Negative (NEGATIVE) 05/23/19 08:20 Assessment: 05/24/19 09:50 withdrawal symptom Plan: continue detox methadone regimen,cbc,cmp,rpr in am
[2019-05-24] MEDS ORDERED: METHADONE HCL 10 MG TABLET (FOR DETOX USE ONLY) PO ONE (10:00)
[2019-05-24] MEDS: PRENATAL VITAMINS W/ FOLIC ACID TABLET (FP) PO SCH (10:15)
[2019-05-24] MEDS: NICOTINE 21 MG/24 HOURS TOPICAL PATCH TD SCH (10:15)
[2019-05-24] MEDS: IBUPROFEN 400 MG TABLET (FP) PO PRN ×2 (13:23→22:24)
[2019-05-24] MEDS: METHOCARBAMOL 500 MG TABLET PO PRN ×2 (13:23→22:23)
[2019-05-24] MEDS: QUEtiapine FUMARATE 100 MG TABLET (FP) PO SCH (22:20)
[2019-05-24] MEDS: THIAMINE HCL 100 MG TABLET (FP) PO SCH (22:20)
[2019-05-24] MEDS: hydrOXYzine PAMOATE 25 MG CAPSULE (FP) PO PRN (22:24)
[2019-05-25] MEDS ORDERED: METHADONE HCL 5 MG TABLET (FOR DETOX USE ONLY) ONE (09:01)
[2019-05-25] MEDS ORDERED: METHADONE HCL 10 MG TABLET (FOR DETOX USE ONLY) ONE (09:01)
[2019-05-25 09:53] LABS: HEMATOCRIT 43.8 % (35.4-49); HEMOGLOBIN 14.1 GM/dL (11.7-16.9); MCH 28.4 pg (25.7-33.7); MCHC 32.1 g/dl (32.0-35.9); MEAN CELL VOLUME 88.4 fl (80-96); MEAN PLT VOLUME 8.1 fl (7.5-11.1); PLATELET COUNT 284 K/MM3 (134-434); RBC 4.96 M/mm3 (4.00-5.60); RDW 14.1 % (11.9-15.9); WHITE BLOOD COUNT 5.6 K/mm3 (4.0-10.0)
[2019-05-25] MEDS ORDERED: METHADONE (DETOX) 10 MG, METHADONE (DETOX) 5 MG PO ONE (10:00)
--- NOTE | 2019-05-25 10:08 | PN ---
BHS COWS - Scale Resting Pulse: 0= [place] 80 or Below Sweatin= No chills or Flushing Restless Observation: 1= Difficult to Sit Still Pupil Size: 1= Pupils >than Normal Bone or Joint Aches: 1= Mild Discomfort Runny Nose/ Eye Tearin= Nasal Congestion GI Upset > 30mins: 1= Stomach Cramp Tremor Observation of Outstretched Hands: 2= Slight Tremor Visible Yawning Observation: 1= 1-2x During Session Anxiety or Irritability: 2=Irritable/Anxious Goose Flesh Skin: 0=Smooth Skin COWS Score: 10 BHS Progress Note (SOAP) Subjective: alert,irritablr,anxious,interrupted sleep,pain in the body and back Objective: 05/25/19 10:13 Vital Signs Temperature 97.9 F 05/25/19 09:23 Pulse Rate 72 05/25/19 09:23 Respiratory Rate 18 05/25/19 09:23 Blood Pressure 110/61 05/25/19 09:23 O2 Sat by Pulse Oximetry (%) 05/25/19 10:13 Laboratory Last Values WBC 5.6 K/mm3 (4.0-10.0) 05/25/19 08:00 RBC 4.96 M/mm3 (4.00-5.60) 05/25/19 08:00 Hgb 14.1 GM/dL (11.7-16.9) 05/25/19 08:00 Hct 43.8 % (35.4-49) 05/25/19 08:00 MCV 88.4 fl (80-96) 05/25/19 08:00 MCH 28.4 pg (25.7-33.7) 05/25/19 08:00 MCHC 32.1 g/dl (32.0-35.9) 05/25/19 08:00 RDW 14.1 % (11.9-15.9) 05/25/19 08:00 Plt Count 284 K/MM3 (134-434) 05/25/19 08:00 MPV 8.1 fl (7.5-11.1) 05/25/19 08:00 Urine Color Yellow 05/23/19 08:20 Urine Appearance Clear 05/23/19 08:20 Urine pH 6.5 (5.0-8.0) 05/23/19 08:20 Ur Specific [place] 1.014 (1.010-1.035) 05/23/19 08:20 Urine Protein Negative (NEGATIVE) 05/23/19 08:20 Urine Glucose (UA) Negative (NEGATIVE) 05/23/19 08:20 Urine Ketones Negative (NEGATIVE) 05/23/19 08:20 Urine Blood Negative (NEGATIVE) 05/23/19 08:20 Urine Nitrite Negative (NEGATIVE) 05/23/19 08:20 Urine Bilirubin Negative (NEGATIVE) 05/23/19 08:20 Urine Urobilinogen 1.0 mg/dL (0.2-1.0) 05/23/19 08:20 Ur Leukocyte Esterase Negative (NEGATIVE) 05/23/19 08:20 other labs pending Assessment: 05/25/19 10:14 withdrawal symptom Plan: continue detox methadone regimen
[2019-05-25 10:27] LABS: ALBUMIN 3.4 g/dl (3.4-5.0); BILIRUBIN,TOTAL 0.5 mg/dL (0.2-1); BLOOD UREA NITROGEN 15.1 mg/dL (7-18); CALCIUM 9.4 mg/dL (8.5-10.1); CREATININE 0.9 mg/dL (0.55-1.3); POTASSIUM 4.9 mmol/L (3.5-5.1); TOT PROT 6.8 g/dl (6.4-8.2)
[2019-05-25] MEDS: hydrOXYzine PAMOATE 25 MG CAPSULE (FP) PO PRN ×2 (10:28→22:12)
[2019-05-25] MEDS: IBUPROFEN 400 MG TABLET (FP) PO PRN (10:28)
[2019-05-25] MEDS: METHOCARBAMOL 500 MG TABLET PO PRN ×2 (10:28→22:12)
[2019-05-25] MEDS: PRENATAL VITAMINS W/ FOLIC ACID TABLET (FP) PO SCH (10:30)
[2019-05-25] MEDS: NICOTINE 21 MG/24 HOURS TOPICAL PATCH TD SCH (10:30)
--- NOTE | 2019-05-25 11:39 | PN ---
BHS Progress Note Note: pain in the right lower molar with cavity,gingivitis, amoxicciln 500 mgs po now then tid for 7 days,increase motrin to 6oo mgs po q 6 hrs for pain,xylocaine viscous q 4 hrs prn close monitoring
[2019-05-25] MEDS ORDERED: IBUPROFEN 600 MG TABLET (FP) PO PRN (11:44)
[2019-05-25] MEDS ORDERED: LIDOCAINE VISCOUS 2% ORAL/TOP 20 ML UNIT-DOSE CUP MM PRN (11:44)
[2019-05-25] MEDS: AMOXICILLIN 500 MG CAPSULE (FP) PO SCH ×2 (14:27→22:11)
[2019-05-25] MEDS: QUEtiapine FUMARATE 100 MG TABLET (FP) PO SCH (22:12)
[2019-05-25] MEDS: THIAMINE HCL 100 MG TABLET (FP) PO SCH (22:13)
[2019-05-26] MEDS: AMOXICILLIN 500 MG CAPSULE (FP) PO SCH ×3 (06:07→22:23)
[2019-05-26] MEDS ORDERED: METHADONE HCL 10 MG TABLET (FOR DETOX USE ONLY) PO ONE (10:00)
[2019-05-26] MEDS: NICOTINE 21 MG/24 HOURS TOPICAL PATCH TD SCH (10:20)
[2019-05-26] MEDS: PRENATAL VITAMINS W/ FOLIC ACID TABLET (FP) PO SCH (10:20)
[2019-05-26] MEDS: hydrOXYzine PAMOATE 25 MG CAPSULE (FP) PO PRN ×2 (10:21→17:43)
[2019-05-26] MEDS: METHOCARBAMOL 500 MG TABLET PO PRN ×2 (10:22→17:43)
--- NOTE | 2019-05-26 10:28 | PN ---
BHS COWS - Scale Resting Pulse: 1= [place] 81-100 Sweatin= No chills or Flushing Restless Observation: 1= Difficult to Sit Still Pupil Size: 1= Pupils >than Normal Bone or Joint Aches: 1= Mild Discomfort Runny Nose/ Eye Tearin= Nasal Congestion GI Upset > 30mins: 1= Stomach Cramp Tremor Observation of Outstretched Hands: 1= Tremor [place], Not Seen Yawning Observation: 0= None Anxiety or Irritability: 2=Irritable/Anxious Goose Flesh Skin: 0=Smooth Skin COWS Score: 9 BHS Progress Note (SOAP) Subjective: alert,irritable,anxious,interrupted sleep,pain in tooth is less Objective: 05/26/19 10:26 Vital Signs Temperature 98.6 F 05/26/19 09:53 Pulse Rate 82 05/26/19 09:53 Respiratory Rate 18 05/26/19 09:53 Blood Pressure 139/85 05/26/19 09:53 O2 Sat by Pulse Oximetry (%) Laboratory Last Values WBC 5.6 K/mm3 (4.0-10.0) 05/25/19 08:00 RBC 4.96 M/mm3 (4.00-5.60) 05/25/19 08:00 Hgb 14.1 GM/dL (11.7-16.9) 05/25/19 08:00 Hct 43.8 % (35.4-49) 05/25/19 08:00 MCV 88.4 fl (80-96) 05/25/19 08:00 MCH 28.4 pg (25.7-33.7) 05/25/19 08:00 MCHC 32.1 g/dl (32.0-35.9) 05/25/19 08:00 RDW 14.1 % (11.9-15.9) 05/25/19 08:00 Plt Count 284 K/MM3 (134-434) 05/25/19 08:00 MPV 8.1 fl (7.5-11.1) 05/25/19 08:00 Sodium 141 mmol/L (136-145) 05/25/19 08:00 Potassium 4.9 mmol/L (3.5-5.1) 05/25/19 08:00 Chloride 103 mmol/L (98-107) 05/25/19 08:00 Carbon Dioxide 32 mmol/L (21-32) 05/25/19 08:00 Anion Gap 6 MMOL/L (8-16) L 05/25/19 08:00 BUN 15.1 mg/dL (7-18) 05/25/19 08:00 Creatinine 0.9 mg/dL (0.55-1.3) 05/25/19 08:00 Est GFR (CKD-EPI)AfAm 129.61 05/25/19 08:00 Est GFR (CKD-EPI)NonAf 111.83 05/25/19 08:00 Random Glucose 81 mg/dL (74-106) 05/25/19 08:00 Calcium 9.4 mg/dL (8.5-10.1) 05/25/19 08:00 Total Bilirubin 0.5 mg/dL (0.2-1) 05/25/19 08:00 AST 13 U/L (15-37) L 05/25/19 08:00 ALT 23 U/L (13-61) 05/25/19 08:00 Alkaline Phosphatase 84 U/L (45-117) 05/25/19 08:00 Total Protein 6.8 g/dl (6.4-8.2) 05/25/19 08:00 Albumin 3.4 g/dl (3.4-5.0) 05/25/19 08:00 Urine Color Yellow 05/23/19 08:20 Urine Appearance Clear 05/23/19 08:20 Urine pH 6.5 (5.0-8.0) 05/23/19 08:20 Ur Specific [place] 1.014 (1.010-1.035) 05/23/19 08:20 Urine Protein Negative (NEGATIVE) 05/23/19 08:20 Urine Glucose (UA) Negative (NEGATIVE) 05/23/19 08:20 Urine Ketones Negative (NEGATIVE) 05/23/19 08:20 Urine Blood Negative (NEGATIVE) 05/23/19 08:20 Urine Nitrite Negative (NEGATIVE) 05/23/19 08:20 Urine Bilirubin Negative (NEGATIVE) 05/23/19 08:20 Urine Urobilinogen 1.0 mg/dL (0.2-1.0) 05/23/19 08:20 Ur Leukocyte Esterase Negative (NEGATIVE) 05/23/19 08:20 RPR Titer Nonreactive (NONREACTIVE) 05/25/19 08:00 TB Test (QFT) Nil 0.11 IU/mL (.) 05/23/19 08:00 TB Test (QFT) Mitogen >10.00 IU/mL (.) 05/23/19 08:00 TB Test (QFT) Antigen 0.09 IU/mL (.) 05/23/19 08:00 TB Test (QFT) Negative (Negative) 05/23/19 08:00 TB Positive Criteria (.) 05/23/19 08:00 Assessment: 05/26/19 10:27 withdrawal symptom Plan: continue detox methadone regimen,discharge in am
[2019-05-26] MEDS: THIAMINE HCL 100 MG TABLET (FP) PO SCH (22:23)
[2019-05-26] MEDS: QUEtiapine FUMARATE 100 MG TABLET (FP) PO SCH (22:23)
[2019-05-27] MEDS: AMOXICILLIN 500 MG CAPSULE (FP) PO SCH (05:25)
[2019-05-27] MEDS ORDERED: METHADONE HCL 5 MG TABLET (FOR DETOX USE ONLY) PO ONE (06:00)
[2019-05-27 07:02] VITALS: BP 115/70; PULSE 73; TEMP 97.7
--- NOTE | 2019-05-27 08:36 | DS ---
[facility] Detox Discharge Summary Admission Date: 05/22/19 Discharge Date: 05/27/19 - History Present History: Opioid Dependence - Physical Exam Results Vital Signs: Vital Signs Temperature 97.7 F 05/27/19 05:00 Pulse Rate 73 05/27/19 05:00 Respiratory Rate 18 05/27/19 05:00 Blood Pressure 115/70 05/27/19 05:00 O2 Sat by Pulse Oximetry (%) Pertinent Admission Physical Exam Findings: Vital Signs Temperature 97.7 F 05/27/19 05:00 Pulse Rate 73 05/27/19 05:00 Respiratory Rate 18 05/27/19 05:00 Blood Pressure 115/70 05/27/19 05:00 O2 Sat by Pulse Oximetry (%) Laboratory Tests 05/23/19 05/23/19 05/25/19 08:00 08:20 08:00 WBC 5.6 RBC 4.96 Hgb 14.1 Hct 43.8 MCV 88.4 MCH 28.4 MCHC 32.1 RDW 14.1 Plt Count 284 MPV 8.1 Sodium Potassium Chloride Carbon Dioxide Anion Gap BUN Creatinine Est GFR (CKD-EPI)AfAm Est GFR (CKD-EPI)NonAf Random Glucose Calcium Total Bilirubin AST ALT Alkaline Phosphatase Total Protein Albumin Urine Color Yellow Urine Appearance Clear Urine pH 6.5 Ur Specific [place] 1.014 Urine Protein Negative Urine Glucose (UA) Negative Urine Ketones Negative Urine Blood Negative Urine Nitrite Negative Urine Bilirubin Negative Urine Urobilinogen 1.0 Ur Leukocyte Esterase Negative RPR Titer TB Test (QFT) Nil 0.11 TB Test (QFT) Mitogen >10.00 TB Test (QFT) Antigen 0.09 TB Test (QFT) Negative TB Positive Criteria 05/25/19 05/25/19 08:00 08:00 WBC RBC Hgb Hct MCV MCH MCHC RDW Plt Count MPV Sodium 141 Potassium 4.9 Chloride 103 Carbon Dioxide 32 Anion Gap 6 L BUN 15.1 Creatinine 0.9 Est GFR (CKD-EPI)AfAm 129.61 Est GFR (CKD-EPI)NonAf 111.83 Random Glucose 81 Calcium 9.4 Total Bilirubin 0.5 AST 13 L ALT 23 Alkaline Phosphatase 84 Total Protein 6.8 Albumin 3.4 Urine Color Urine Appearance Urine pH Ur Specific [place] Urine Protein Urine Glucose (UA) Urine Ketones Urine Blood Urine Nitrite Urine Bilirubin Urine Urobilinogen Ur Leukocyte Esterase RPR Titer Nonreactive TB Test (QFT) Nil TB Test (QFT) Mitogen TB Test (QFT) Antigen TB Test (QFT) TB Positive Criteria aaox3 ambulating no acute distress - Treatment Hospital Course: Detox Protocol Followed, Detoxed Safely, Responded well, Discharged Condition Good, Rehab Referral Accepted Patient has Accepted a Rehab Referral to: referred to [facility] - Medication Discharge Medications: Ambulatory Orders Albuterol Sulfate Inhaler - [Ventolin HFA Inhaler -] 2 puff IH Q4H PRN #1 inhaler 12/14/18 - Diagnosis (1) Asthma Current Visit: Yes Status: Chronic Qualifiers: Asthma severity: mild Asthma persistence: intermittent Asthma complication type: with status asthmaticus Qualified Code(s): J45.22 - Mild intermittent asthma with status asthmaticus (2) Opioid dependence with withdrawal Current Visit: Yes Status: Acute (3) Substance-induced sleep disorder Current Visit: Yes Status: Acute (4) Nicotine dependence Current Visit: Yes Status: Chronic Qualifiers: Nicotine product type: cigarettes Substance use status: uncomplicated Qualified Code(s): F17.210 - Nicotine dependence, cigarettes, uncomplicated (5) Substance induced mood disorder Current Visit: Yes Status: Chronic (6) Anxiety Current Visit: No Status: Acute (7) Insomnia Current Visit: No Status: Chronic Qualifiers: Insomnia type: unspecified Qualified Code(s): G47.00 - Insomnia, unspecified (8) Depressed affect Current Visit: No Status: Suspected (9) Substance-induced anxiety disorder Current Visit: No Status: Suspected (10) Substance-induced sleep disorder Current Visit: No Status: Suspected - AMA Did Patient Leave Against Medical Advice: No
== END 2019-05-27 09:20 | disposition home or self-care (01) | DRG 773 ==
LOC: YASAS 17:41 → Y6N 20:47
PROVIDERS: ADMIT Allergy & Immunology; ATTEND Allergy & Immunology
PROC: HZ2ZZZZ Detoxification Services for Substance Abuse Treatment (ICD-10-PCS; principal; 2019-05-22)
DX: F11.23 Opioid dependence with withdrawal (principal); F17.210 Nicotine dependence, cigarettes, uncomplicated; F19.24 Other psychoactive substance dependence with psychoactive substance-induced mood disorder; F19.282 Other psychoactive substance dependence with psychoactive substance-induced sleep disorder; F19.280 Other psychoactive substance dependence with psychoactive substance-induced anxiety disorder; F41.9 Anxiety disorder, unspecified; F32.9 Major depressive disorder, single episode, unspecified; J45.22 Mild intermittent asthma with status asthmaticus; G47.00 Insomnia, unspecified; K02.9 Dental caries, unspecified; K05.10 Chronic gingivitis, plaque induced; R03.0 Elevated blood-pressure reading, without diagnosis of hypertension; R00.0 Tachycardia, unspecified
CPT/HCPCS: 36415; 80053; 81003; 85027; 86480; 86593

== ENCOUNTER 2019-06-26 18:18 | Inpatient (IN) | payer OTHER ==
[2019-06-26 18:41] VITALS: BMI 27.1
--- NOTE | 2019-06-26 20:39 | HP ---
COWS - Scale Resting Pulse: 0= [place] 80 or Below Sweatin=Flushed/Facial Moisture Restless Observation: 1= Difficult to Sit Still Pupil Size: 1= Pupils >than Normal Bone or Joint Aches: 4=Acute Joint/Muscle Pain Runny Nose/ Eye Tearin= Runny Nose/Eyes GI Upset > 30mins: 3= Vomiting/Diarrhea (vomiting x 2, diarrhea x 2) Tremor Observation: 2= Slight Tremor Visible Yawning Observation: 1= 1-2x During Session Anxiety or Irritability: 2=Irritable/Anxious Goose Flesh Skin: 3=Piloerection COWS Score: 21 CIWA Score - Admission Criteria OASAS Guidelines: Admission for Medically Managed Detox: Requires at least one of the followin. CIWA greater than 12 2. Seizures within the past 24 hours 3. Delirium tremens within the past 24 hours 4. Hallucinations within the past 24 hours 5. Acute intervention needed for co occurring medical disorder 6. Acute intervention needed for co occurring psychiatric disorder 7. Severe withdrawal that cannot be handled at a lower level of care (continued vomiting, continued diarrhea, abnormal vital signs) requiring intravenous medication and/or fluids 8. Admitting History and Physical - Smoking History Smoking history: Current every day smoker Have you smoked in the past 12 months: Yes Aproximately how many cigarettes per day: 20 - Alcohol/Substance Use Hx Alcohol Use: Yes Admission ROS [facility] Chief Complaint: Heroin withdrawal symptoms Allergies/Adverse Reactions: Allergies Allergy/AdvReac Type Severity Reaction Status Date / Time No Known Allergies Allergy Verified 06/26/19 18:32 History of Present Illness: 33 years old male with 4 years of heroin dependence and multiple admissions to [facility] is seeking admission to detox. Patient's last admission was for the period 05/22/2019 - 05/27/2019 and he reports eight months of sobriety. He has medical history of asthma and denies psych. history at this time. He denies suicide attempt and suicidal ideation at this time. Exam Limitations: No Limitations - Ebola screening Have you traveled outside of the country in the last 21 days: No (NN) Have you had contact with anyone from an Ebola affected area: No Do you have a fever: No - Review of Systems Constitutional: Chills, Loss of Appetite, Malaise, Night Sweats, Changes in sleep EENT: reports: Sinus Pressure, Other (toothache) Respiratory: reports: No Symptoms reported Cardiac: reports: No Symptoms Reported GI: reports: Diarrhea, Nausea, Poor Appetite, Poor Fluid Intake, Vomiting, Abdominal cramping, Other Musculoskeletal: reports: Back Pain Integumentary: reports: Dryness, Flushing, Sweating Endocrine: reports: No Symptoms Reported Hematology: reports: No Symptoms Reported Psychiatric: reports: Mood/Affect Appropiate, Orientated x3, Anxious Other Systems: Reviewed and Negative Patient History - Patient Medical History Hx Anemia: No Hx Asthma: Yes (Ventolin) Hx Chronic Obstructive Pulmonary Disease (COPD): No Hx Cancer: No Hx Cardiac Disorders: No Hx Congestive Heart Failure: No Hx Hypertension: No Hx Hypercholesterolemia: No Hx Pacemaker: No HX Cerebrovascular Accident: No Hx Seizures: No Hx Dementia: No Hx Diabetes: No Hx Gastrointestinal Disorders: No Hx Liver Disease: No Hx Genitourinary Disorders: No Hx Sexually Transmitted Disorders: No Hx Renal Disease (ESRD): No Hx Thyroid Disease: No Hx Human Immunodeficiency Virus (HIV): No Hx Hepatitis C: No Hx Depression: No Hx Suicide Attempt: No Hx Bipolar Disorder: No Hx Schizophrenia: No - Patient Surgical History Past Surgical History: No Hx Neurologic Surgery: No Hx Cataract Extraction: No Hx Cardiac Surgery: No Hx Lung Surgery: No Hx Abdominal Surgery: No Hx Appendectomy: No Hx Cholecystectomy: No Hx Genitourinary Surgery: No Hx Orthopedic Surgery: No Hx Hysterectomy: No Anesthesia Reaction: No - PPD History Previous Implant?: Yes Documented Results: Negative w/proof Implanted On Prior [facility] Admission?: No Date: 11/30/17 Results: 0 mm PPD to be Administered?: Yes - Reproductive History Patient is a Female of Child Bearing Age (11 -55 yrs old): No (male) - Smoking Cessation Smoking history: Current every day smoker Have you smoked in the past 12 months: Yes Aproximately how many cigarettes per day: 20 Cigars Per Day: 0 Hx Chewing Tobacco Use: No Initiated information on smoking cessation: Yes 'Breaking Loose' booklet given: 06/26/19 - Substance & Tx. History Hx Alcohol Use: No Hx Substance Use: Yes Substance Use Type: Opiates Hx Substance Use Treatment: Yes ([facility]) - Substances abused Heroin Substance route: Inhalation Admission Physical Exam BHS - Vital Signs Vital Signs: Vital Signs - 24 hr 06/26/19 18:31 Temperature 97.9 F Pulse Rate 73 Respiratory 20 Rate Blood Pressure 135/78 Breathalyzer - Breathalyzer Breathalyzer: 0 Urine Drug Screen - Test Device Lot number: [id number] Expiration date: 09/06/20 - Control Is test valid?: Yes - Results Drug screen NEGATIVE: No Urine drug screen results: FEN-Fentanyl, MOP-Opiates Inpatient Rehab Admission - Rehab Decision to Admit Inpatient rehab admission?: No
--- NOTE | 2019-06-26 21:12 | HP ---
COWS - Scale Resting Pulse: 0= [place] 80 or Below Sweatin=Flushed/Facial Moisture Restless Observation: 1= Difficult to Sit Still Pupil Size: 1= Pupils >than Normal Bone or Joint Aches: 4=Acute Joint/Muscle Pain Runny Nose/ Eye Tearin= Runny Nose/Eyes GI Upset > 30mins: 3= Vomiting/Diarrhea (vomiting x 2, diarrhea x 2) Tremor Observation: 2= Slight Tremor Visible Yawning Observation: 1= 1-2x During Session Anxiety or Irritability: 2=Irritable/Anxious Goose Flesh Skin: 3=Piloerection COWS Score: 21 CIWA Score - Admission Criteria OASAS Guidelines: Admission for Medically Managed Detox: Requires at least one of the followin. CIWA greater than 12 2. Seizures within the past 24 hours 3. Delirium tremens within the past 24 hours 4. Hallucinations within the past 24 hours 5. Acute intervention needed for co occurring medical disorder 6. Acute intervention needed for co occurring psychiatric disorder 7. Severe withdrawal that cannot be handled at a lower level of care (continued vomiting, continued diarrhea, abnormal vital signs) requiring intravenous medication and/or fluids 8. Admitting History and Physical - Smoking History Smoking history: Current every day smoker Have you smoked in the past 12 months: Yes Aproximately how many cigarettes per day: 20 - Alcohol/Substance Use Hx Alcohol Use: No Admission ROS [facility] Chief Complaint: Heroin withdrawal symptoms Allergies/Adverse Reactions: Allergies Allergy/AdvReac Type Severity Reaction Status Date / Time No Known Allergies Allergy Verified 06/26/19 18:32 History of Present Illness: 33 years old male with 4 years of heroin dependence and multiple admissions to [facility] is seeking admission to detox. Patient's last admission was for the period 05/22/2019 - 05/27/2019 and he reports eight months of sobriety. He has medical history of asthma and denies psych. history at this time. He denies suicide attempt and suicidal ideation at this time. Exam Limitations: No Limitations - Ebola screening Have you traveled outside of the country in the last 21 days: No (NN) Have you had contact with anyone from an Ebola affected area: No Do you have a fever: No - Review of Systems Constitutional: Chills, Loss of Appetite, Malaise, Night Sweats, Changes in sleep EENT: reports: Sinus Pressure Respiratory: reports: No Symptoms reported Cardiac: reports: No Symptoms Reported GI: reports: Diarrhea, Nausea, Poor Appetite, Poor Fluid Intake, Vomiting, Abdominal cramping : reports: No Symptoms Reported Musculoskeletal: reports: Back Pain Integumentary: reports: Dryness, Flushing Neuro: reports: Tremors Endocrine: reports: No Symptoms Reported Hematology: reports: No Symptoms Reported Psychiatric: reports: Mood/Affect Appropiate, Orientated x3 Other Systems: Reviewed and Negative Patient History - Patient Medical History Hx Anemia: No Hx Asthma: Yes (Ventolin) Hx Chronic Obstructive Pulmonary Disease (COPD): No Hx Cancer: No Hx Cardiac Disorders: No Hx Congestive Heart Failure: No Hx Hypertension: No Hx Hypercholesterolemia: No Hx Pacemaker: No HX Cerebrovascular Accident: No Hx Seizures: No Hx Dementia: No Hx Diabetes: No Hx Gastrointestinal Disorders: No Hx Liver Disease: No Hx Genitourinary Disorders: No Hx Sexually Transmitted Disorders: No Hx Renal Disease (ESRD): No Hx Thyroid Disease: No Hx Human Immunodeficiency Virus (HIV): No Hx Hepatitis C: No Hx Depression: No Hx Suicide Attempt: No Hx Bipolar Disorder: No Hx Schizophrenia: No - Patient Surgical History Past Surgical History: No Hx Neurologic Surgery: No Hx Cataract Extraction: No Hx Cardiac Surgery: No Hx Lung Surgery: No Hx Abdominal Surgery: No Hx Appendectomy: No Hx Cholecystectomy: No Hx Genitourinary Surgery: No Hx Section: No Hx Orthopedic Surgery: No Anesthesia Reaction: No - PPD History Previous Implant?: Yes Documented Results: Negative w/proof Implanted On Prior [facility] Admission?: No Date: 11/30/17 Results: 0 mm PPD to be Administered?: Yes - Reproductive History Patient is a Female of Child Bearing Age (11 -55 yrs old): No (male) - Smoking Cessation Smoking history: Current every day smoker Have you smoked in the past 12 months: Yes Aproximately how many cigarettes per day: 20 Cigars Per Day: 0 Hx Chewing Tobacco Use: No Initiated information on smoking cessation: Yes 'Breaking Loose' booklet given: 06/26/19 - Substance & Tx. History Hx Alcohol Use: No Hx Substance Use: Yes Substance Use Type: Opiates Hx Substance Use Treatment: Yes ([facility]) - Substances abused Heroin Substance route: Inhalation Amount used: 20 bags Age of first use: 28 Date of last use: 01/17/20 Admission Physical Exam BHS - Vital Signs Vital Signs: Vital Signs - 24 hr 06/26/19 18:31 Temperature 97.9 F Pulse Rate 73 Respiratory 20 Rate Blood Pressure 135/78 - Physical General Appearance: Yes: Severe Distress, Tremorous, Sweating, Anxious HEENTM: Yes: Rhinorrhea Respiratory: Yes: Lungs Clear, Normal Breath Sounds, No Respiratory Distress Neck: Yes: Within Normal Limits Breast: Yes: Breast Exam Deferred Cardiology: Yes: Regular Rhythm, Regular Rate Abdominal: Yes: Normal Bowel Sounds, Soft Genitourinary: Yes: Within Normal Limits Musculoskeletal: Yes: Back pain Extremities: Yes: Tremors Neurological: Yes: Within Normal Limits Integumentary: Yes: Warm Lymphatic: Yes: Within Normal Limits - Diagnostic (1) Opioid dependence with withdrawal Current Visit: Yes Status: Acute (2) Asthma Current Visit: Yes Status: Chronic Qualifiers: Asthma severity: mild Asthma persistence: intermittent (3) Nicotine dependence Current Visit: Yes Status: Chronic Qualifiers: Nicotine product type: cigarettes Substance use status: in withdrawal Qualified Code(s): F17.213 - Nicotine dependence, cigarettes, with withdrawal Cleared for Admission [facility] - Detox or Rehab [facility] Level of Care: Medically Managed Detox Regimen/Protocol: Methadone Breathalyzer - Breathalyzer Breathalyzer: 0 Urine Drug Screen - Test Device Lot number: [id number] Expiration date: 09/06/20 - Control Is test valid?: Yes - Results Drug screen NEGATIVE: No Urine drug screen results: FEN-Fentanyl, MOP-Opiates Inpatient Rehab Admission - Rehab Decision to Admit Inpatient rehab admission?: No
[2019-06-26] MEDS ORDERED: NICOTINE POLACRILEX 2 MG GUM BUC PRN (21:18)
[2019-06-26] MEDS ORDERED: ACETAMINOPHEN 325 MG TABLET (FP) PO PRN ×2 (21:18)
[2019-06-26] MEDS ORDERED: MENTHOL/PHENOL 1 EACH UD MM PRN (21:18)
[2019-06-26] MEDS ORDERED: cloNIDine HCL 0.1 MG TABLET PO PRN (21:18)
[2019-06-26] MEDS ORDERED: MAGNESIUM HYDROX 2400MG/30ML ORAL SUSPENSION 30 ML CUP PO PRN (21:18)
[2019-06-26] MEDS ORDERED: METHADONE HCL 10 MG TABLET (FOR DETOX USE ONLY) PO ONE (21:18)
[2019-06-26] MEDS ORDERED: MAG HYDROX/AL HYDROX/SIMETH 30 ML UNIT-DOSE CUP PO PRN (21:18)
[2019-06-26] MEDS ORDERED: MAGNESIUM CITRATE 300 ML BOTTLE PO PRN (21:18)
[2019-06-26] MEDS ORDERED: BISMUTH SUBSALICYLATE 524 MG/30 ML UD PO PRN (21:18)
[2019-06-26] MEDS ORDERED: ALBUTEROL SO4 0.083% IH SOL 2.5 MG/3 ML VIAL.NEB. NEB ONE (21:56)
[2019-06-26] MEDS: THIAMINE HCL 100 MG TABLET (FP) PO SCH (22:50)
[2019-06-26] MEDS: hydrOXYzine PAMOATE 25 MG CAPSULE (FP) PO PRN (22:55)
[2019-06-26] MEDS: IBUPROFEN 400 MG TABLET (FP) PO PRN (22:55)
[2019-06-27] MEDS ORDERED: METHADONE HCL 5 MG TABLET (FOR DETOX USE ONLY) ONE (09:47)
[2019-06-27] MEDS ORDERED: METHADONE HCL 10 MG TABLET (FOR DETOX USE ONLY) ONE (09:48)
[2019-06-27] MEDS ORDERED: METHADONE (DETOX) 20 MG, METHADONE (DETOX) 5 MG PO ONE (10:00)
[2019-06-27] MEDS: NICOTINE 21 MG/24 HOURS TOPICAL PATCH TD SCH (10:18)
[2019-06-27] MEDS: PRENATAL VITAMINS W/ FOLIC ACID TABLET (FP) PO SCH (10:18)
[2019-06-27] MEDS: IBUPROFEN 400 MG TABLET (FP) PO PRN ×2 (10:19→22:16)
[2019-06-27] MEDS: hydrOXYzine PAMOATE 25 MG CAPSULE (FP) PO PRN (10:19)
[2019-06-27 10:45] LABS: HEMATOCRIT 41.3 % (35.4-49); HEMOGLOBIN 13.5 GM/dL (11.7-16.9); MCHC 32.6 g/dl (32.0-35.9); MEAN CELL VOLUME 88.7 fl (80-96); MEAN PLT VOLUME 7.8 fl (7.5-11.1); PLATELET COUNT 284 K/MM3 (134-434); RBC 4.65 M/mm3 (4.00-5.60); RDW 14.7 % (11.9-15.9); WHITE BLOOD COUNT 5.7 K/mm3 (4.0-10.0)
[2019-06-27 10:49] LABS: ALBUMIN 3.5 g/dl (3.4-5.0); BILIRUBIN,TOTAL 0.9 mg/dL (0.2-1); BLOOD UREA NITROGEN 16.6 mg/dL (7-18); CALCIUM 8.8 mg/dL (8.5-10.1); CREATININE 0.7 mg/dL (0.55-1.3); POTASSIUM 3.8 mmol/L (3.5-5.1); TOT PROT 6.6 g/dl (6.4-8.2)
[2019-06-27] MEDS: ALBUTEROL SO4 HFA INHALER IH PRN ×2 (13:34→20:34)
--- NOTE | 2019-06-27 14:33 | PN ---
BHS COWS - Scale Resting Pulse: 0= [place] 80 or Below Sweatin= Chills/Flushing Restless Observation: 1= Difficult to Sit Still Pupil Size: 0= Normal to Room Light Bone or Joint Aches: 2= Severe Diffuse Aches Runny Nose/ Eye Tearin= Runny Nose/Eyes GI Upset > 30mins: 1= Stomach Cramp Tremor Observation of Outstretched Hands: 1= Tremor [place], Not Seen Yawning Observation: 2= >3x During Session Anxiety or Irritability: 2=Irritable/Anxious Goose Flesh Skin: 3=Piloerection COWS Score: 15 BHS Progress Note (SOAP) Subjective: chills sweats agitation irritable shakes poor appetite Objective: 06/27/19 14:33 Vital Signs Temperature 99.1 F 06/27/19 14:23 Pulse Rate 81 06/27/19 14:23 Respiratory Rate 16 06/27/19 14:23 Blood Pressure 147/95 06/27/19 14:23 O2 Sat by Pulse Oximetry (%) Laboratory Tests 06/27/19 06/27/19 06/27/19 07:20 07:20 07:20 WBC 5.7 RBC 4.65 Hgb 13.5 Hct 41.3 MCV 88.7 MCH 29.0 MCHC 32.6 RDW 14.7 Plt Count 284 MPV 7.8 Sodium 140 Potassium 3.8 Chloride 104 Carbon Dioxide 31 Anion Gap 6 L BUN 16.6 Creatinine 0.7 Est GFR (CKD-EPI)AfAm 143.71 Est GFR (CKD-EPI)NonAf 123.99 Random Glucose 104 Calcium 8.8 Total Bilirubin 0.9 AST 12 L ALT 20 Alkaline Phosphatase 75 Total Protein 6.6 Albumin 3.5 RPR Titer Nonreactive aaox3 ambulating no acute distress Assessment: 06/27/19 14:33 withdrawals Plan: continue detox ensure bid valium prn
[2019-06-27] MEDS: THIAMINE HCL 100 MG TABLET (FP) PO SCH (22:15)
[2019-06-27] MEDS: METHOCARBAMOL 500 MG TABLET PO PRN (22:16)
[2019-06-27] MEDS: MELATONIN 5 MG TABLETS PO PRN (22:17)
[2019-06-28] MEDS: ALBUTEROL SO4 HFA INHALER IH PRN (01:52)
[2019-06-28] MEDS: hydrOXYzine PAMOATE 25 MG CAPSULE (FP) PO PRN (07:16)
[2019-06-28] MEDS: METHOCARBAMOL 500 MG TABLET PO PRN (07:16)
[2019-06-28] MEDS ORDERED: METHADONE HCL 10 MG TABLET (FOR DETOX USE ONLY) PO ONE (10:00)
--- NOTE | 2019-06-28 10:07 | EKG ---
Test Reason : Blood Pressure : / mmHG Vent. Rate : 074 BPM Atrial Rate : 074 BPM P-R Int : 150 ms QRS Dur : 086 ms QT Int : 368 ms P-R-T Axes : 000 148 149 degrees QTc Int : 408 ms NORMAL SINUS RHYTHM LEFT POSTERIOR FASCICULAR BLOCK NONSPECIFIC ST AND T WAVE ABNORMALITY ABNORMAL ECG WHEN COMPARED WITH ECG OF 09-MAY-2019 15:48, LIMB LEAD REVERSAL Confirmed by DAYAN KULKARNI MD ([id number]) on 06/28/2019 10:07:18 AM Referred By: Confirmed By:DAYAN KULKARNI MD
[2019-06-28] MEDS: NICOTINE 21 MG/24 HOURS TOPICAL PATCH TD SCH (10:08)
[2019-06-28] MEDS: PRENATAL VITAMINS W/ FOLIC ACID TABLET (FP) PO SCH (10:08)
[2019-06-28] MEDS: diazePAM 5 MG TABLET PO PRN ×4 (10:08→22:20)
[2019-06-28] MEDS ORDERED: hydrOXYzine PAMOATE 50 MG CAPSULE (FP) PO PRN (10:26)
--- NOTE | 2019-06-28 10:35 | PN ---
BHS COWS - Scale Resting Pulse: 0= [place] 80 or Below Sweatin= Chills/Flushing Restless Observation: 1= Difficult to Sit Still Pupil Size: 0= Normal to Room Light Bone or Joint Aches: 2= Severe Diffuse Aches Runny Nose/ Eye Tearin= Runny Nose/Eyes GI Upset > 30mins: 0= None Tremor Observation of Outstretched Hands: 1= Tremor [place], Not Seen Yawning Observation: 2= >3x During Session Anxiety or Irritability: 2=Irritable/Anxious Goose Flesh Skin: 0=Smooth Skin COWS Score: 11 S Progress Note (SOAP) Subjective: sweats shakes interrupted sleep irritable Objective: 06/28/19 10:34 Vital Signs Temperature 98.6 F 06/28/19 07:00 Pulse Rate 72 06/28/19 07:00 Respiratory Rate 18 06/28/19 07:00 Blood Pressure 128/85 06/28/19 07:00 O2 Sat by Pulse Oximetry (%) Laboratory Tests 06/27/19 06/27/19 06/27/19 07:20 07:20 07:20 WBC 5.7 RBC 4.65 Hgb 13.5 Hct 41.3 MCV 88.7 MCH 29.0 MCHC 32.6 RDW 14.7 Plt Count 284 MPV 7.8 Sodium 140 Potassium 3.8 Chloride 104 Carbon Dioxide 31 Anion Gap 6 L BUN 16.6 Creatinine 0.7 Est GFR (CKD-EPI)AfAm 143.71 Est GFR (CKD-EPI)NonAf 123.99 Random Glucose 104 Calcium 8.8 Total Bilirubin 0.9 AST 12 L ALT 20 Alkaline Phosphatase 75 Total Protein 6.6 Albumin 3.5 RPR Titer Nonreactive aaox3 ambulating no acute distress Assessment: 06/28/19 10:35 withdrawals Plan: continue detox pt has valium ordered
[2019-06-28] MEDS: ALBUTEROL SO4 2.5/IPRATROPIUM 0.5 INH SOL 3 ML VIAL.NEB. NEB PRN (21:58)
[2019-06-28] MEDS: THIAMINE HCL 100 MG TABLET (FP) PO SCH (22:20)
[2019-06-28] MEDS: MELATONIN 5 MG TABLETS PO PRN (22:20)
[2019-06-29] MEDS: diazePAM 5 MG TABLET PO PRN ×4 (08:43→22:18)
[2019-06-29] MEDS ORDERED: METHADONE HCL 5 MG TABLET (FOR DETOX USE ONLY) ONE (09:01)
[2019-06-29] MEDS ORDERED: METHADONE HCL 10 MG TABLET (FOR DETOX USE ONLY) ONE (09:02)
[2019-06-29] MEDS: METHOCARBAMOL 500 MG TABLET PO PRN (09:12)
[2019-06-29] MEDS: IBUPROFEN 400 MG TABLET (FP) PO PRN (09:12)
[2019-06-29] MEDS ORDERED: IBUPROFEN 400 MG TABLET (FP) PO PRN (09:15)
[2019-06-29] MEDS ORDERED: PENICILLIN V POTASSIUM 500 MG TABLET PO ONE (09:15)
[2019-06-29] MEDS ORDERED: BENZOCAINE 20 % GEL TUBE MM PRN (09:15)
[2019-06-29] MEDS ORDERED: METHADONE (DETOX) 10 MG, METHADONE (DETOX) 5 MG PO ONE (10:00)
[2019-06-29] MEDS: PRENATAL VITAMINS W/ FOLIC ACID TABLET (FP) PO SCH (10:16)
[2019-06-29] MEDS: NICOTINE 21 MG/24 HOURS TOPICAL PATCH TD SCH (10:16)
--- NOTE | 2019-06-29 10:41 | PN ---
BHS COWS - Scale Resting Pulse: 0= [place] 80 or Below Sweatin= Chills/Flushing Restless Observation: 1= Difficult to Sit Still Pupil Size: 0= Normal to Room Light Bone or Joint Aches: 2= Severe Diffuse Aches Runny Nose/ Eye Tearin= None GI Upset > 30mins: 0= None Tremor Observation of Outstretched Hands: 1= Tremor [place], Not Seen Yawning Observation: 1= 1-2x During Session Anxiety or Irritability: 2=Irritable/Anxious Goose Flesh Skin: 0=Smooth Skin COWS Score: 8 BHS Progress Note (SOAP) Subjective: tooth ache sweats irritable agitation restless Objective: 06/29/19 10:40 Vital Signs Temperature 96.8 F L 06/29/19 09:34 Pulse Rate 78 06/29/19 09:34 Respiratory Rate 16 06/29/19 09:34 Blood Pressure 124/78 06/29/19 09:34 O2 Sat by Pulse Oximetry (%) 97 06/28/19 22:28 Laboratory Tests 06/27/19 06/27/19 06/27/19 07:20 07:20 07:20 WBC 5.7 RBC 4.65 Hgb 13.5 Hct 41.3 MCV 88.7 MCH 29.0 MCHC 32.6 RDW 14.7 Plt Count 284 MPV 7.8 Sodium 140 Potassium 3.8 Chloride 104 Carbon Dioxide 31 Anion Gap 6 L BUN 16.6 Creatinine 0.7 Est GFR (CKD-EPI)AfAm 143.71 Est GFR (CKD-EPI)NonAf 123.99 Random Glucose 104 Calcium 8.8 Total Bilirubin 0.9 AST 12 L ALT 20 Alkaline Phosphatase 75 Total Protein 6.6 Albumin 3.5 RPR Titer Nonreactive aaox3 ambulating no acute distress Assessment: 06/29/19 10:40 withdrawals tooth assess; decay noted Plan: continue detox anbesol ordered penicillin ordered motrin 800mg tid prn
[2019-06-29] MEDS ORDERED: PENICILLIN V POTASSIUM 500 MG TABLET PO SCH (15:00)
[2019-06-29] MEDS: ALBUTEROL SO4 2.5/IPRATROPIUM 0.5 INH SOL 3 ML VIAL.NEB. NEB PRN (17:45)
[2019-06-29] MEDS: PENICILLIN V POTASSIUM 500 MG TABLET PO SCH ×2 (18:05→23:03)
[2019-06-29] MEDS: THIAMINE HCL 100 MG TABLET (FP) PO SCH (22:15)
[2019-06-29] MEDS: MELATONIN 5 MG TABLETS PO PRN (22:20)
[2019-06-30] MEDS: PENICILLIN V POTASSIUM 500 MG TABLET PO SCH (06:01)
[2019-06-30] MEDS: diazePAM 5 MG TABLET PO PRN (06:02)
[2019-06-30 06:54] VITALS: BP 120/61; PULSE 75; TEMP 96.8
[2019-06-30] MEDS ORDERED: METHADONE HCL 10 MG TABLET (FOR DETOX USE ONLY) PO ONE (10:00)
--- NOTE | 2019-06-30 10:09 | PN ---
[facility] Progress Note Note: pt refused to stay and complete his detox. pt was offered to get his last dose during medication time but insisted on leaving. pt was advised to stay and prevent relapse, seizure, DT, OD, loss, pt chose to sign out AMA.
--- NOTE | 2019-06-30 10:10 | DS ---
[facility] Detox Discharge Summary Admission Date: 06/26/19 - History Present History: Opioid Dependence - Physical Exam Results Vital Signs: Vital Signs Temperature 96.8 F L 06/30/19 06:54 Pulse Rate 75 06/30/19 06:54 Respiratory Rate 18 06/30/19 06:54 Blood Pressure 120/61 06/30/19 06:54 O2 Sat by Pulse Oximetry (%) 97 06/28/19 22:28 - Treatment Hospital Course: Rehab Referral Accepted - Medication Discharge Medications: Ambulatory Orders Albuterol Sulfate Inhaler - [Ventolin HFA Inhaler -] 2 puff IH Q4H PRN #1 inhaler 12/14/18 - Diagnosis (1) Anxiety Status: Acute (2) Opioid dependence with withdrawal Status: Chronic (3) Substance-induced sleep disorder Status: Acute (4) Asthma Status: Chronic Qualifiers: Asthma severity: mild Asthma persistence: intermittent (5) Insomnia Status: Chronic Qualifiers: Insomnia type: unspecified Qualified Code(s): G47.00 - Insomnia, unspecified (6) Nicotine dependence Status: Chronic Qualifiers: Nicotine product type: cigarettes Substance use status: in withdrawal Qualified Code(s): F17.213 - Nicotine dependence, cigarettes, with withdrawal (7) Substance induced mood disorder Status: Chronic (8) Depressed affect Status: Suspected (9) Substance-induced anxiety disorder Status: Suspected (10) Substance-induced sleep disorder Status: Suspected - AMA Did Patient Leave Against Medical Advice: Yes
[2019-07-01] MEDS ORDERED: METHADONE HCL 5 MG TABLET (FOR DETOX USE ONLY) PO ONE (06:00)
== END 2019-06-30 09:21 | disposition left against medical advice (07) | DRG 770 ==
LOC: YASAS 18:18 → Y6N 21:13
PROVIDERS: ADMIT Allergy & Immunology; ATTEND Allergy & Immunology
PROC: HZ2ZZZZ Detoxification Services for Substance Abuse Treatment (ICD-10-PCS; principal; 2019-06-26)
DX: F11.23 Opioid dependence with withdrawal (principal); F17.210 Nicotine dependence, cigarettes, uncomplicated; F19.280 Other psychoactive substance dependence with psychoactive substance-induced anxiety disorder; F19.282 Other psychoactive substance dependence with psychoactive substance-induced sleep disorder; F19.24 Other psychoactive substance dependence with psychoactive substance-induced mood disorder; G47.00 Insomnia, unspecified; J45.20 Mild intermittent asthma, uncomplicated; K02.9 Dental caries, unspecified
CPT/HCPCS: 36415; 80053; 85027; 86593; 93005; 93010; 94640; J0735

== ENCOUNTER 2019-07-18 20:51 | Inpatient (IN) | payer OTHER ==
[2019-07-18 21:50] VITALS: BMI 27.2
--- NOTE | 2019-07-18 22:49 | HP ---
COWS - Scale Resting Pulse: 0= [place] 80 or Below Sweatin= Chills/Flushing Restless Observation: 0= Sits Still Pupil Size: 0= Normal to Room Light Bone or Joint Aches: 4=Acute Joint/Muscle Pain Runny Nose/ Eye Tearin= Runny Nose/Eyes GI Upset > 30mins: 2= Nausea/Diarrhea (nausea) Tremor Observation: 0= None Yawning Observation: 0= None Anxiety or Irritability: 2=Irritable/Anxious Goose Flesh Skin: 0=Smooth Skin COWS Score: 11 CIWA Score Nausea/Vomitin-Mild Nausea/No Vomiting Muscle Tremors: None Anxiety: 0-No Anxiety, at Ease Agitation: 3 (irritable) Paroxysmal Sweats: 3 Orientation: 3-Disoriented Date>2 days Tacttile Disturbances: 0-None Auditory Disturbances: 0-None Visual Disturbances: 0-None Headache: 3-Moderate (7/10) CIWA-Ar Total Score: 13 - Admission Criteria OASAS Guidelines: Admission for Medically Managed Detox: Requires at least one of the followin. CIWA greater than 12 2. Seizures within the past 24 hours 3. Delirium tremens within the past 24 hours 4. Hallucinations within the past 24 hours 5. Acute intervention needed for co occurring medical disorder 6. Acute intervention needed for co occurring psychiatric disorder 7. Severe withdrawal that cannot be handled at a lower level of care (continued vomiting, continued diarrhea, abnormal vital signs) requiring intravenous medication and/or fluids 8. Patient presents the following: CIWA greater than 12 Admission Criteria Met: Admission criteria met Admitting History and Physical - Smoking History Smoking history: Current every day smoker Have you smoked in the past 12 months: Yes Aproximately how many cigarettes per day: 20 - Alcohol/Substance Use Hx Alcohol Use: No Admission ROS S - HPI Chief Complaint: alcohol/ heroin detox Allergies/Adverse Reactions: Allergies Allergy/AdvReac Type Severity Reaction Status Date / Time No Known Allergies Allergy Verified 07/18/19 21:47 History of Present Illness: HERE FOR ALCOHOL HEROIN DETOX. CLIENT IS SELF REFERRED. KNOWN TO PROGRAM WAS DC 2 WEEKS AGO. CLIENT REPORTS RELAPSING RIGHT AFTER IS LAST DC. USING HEROIN AND XANAX DAILY. LAST USE 1 NIGHT AGO. NOW HERE WITH COMPLAINTS OF WITHDRAWAL SX'S. DENIES HX/O BLACKOUTS, SEIZURES, DRUG OVERDOSE, IVDU. DENIES ANY SIGNIFICANT PERIOD OF CLEAN TIME IN THE PAST 1 YEAR. LIFES W/ FAMILY, UNEMPLOYED, DENIES LEGALS Exam Limitations: No Limitations - Ebola screening Have you traveled outside of the country in the last 21 days: No Have you had contact with anyone from an Ebola affected area: No Have you been sick,other than usual withdrawal symptoms: No Do you have a fever: No - Review of Systems Constitutional: Chills, Loss of Appetite, Malaise, Changes in sleep EENT: reports: Dental Problems (POOR DENTITION/ DENTAL PAIN-CHRONIC) Respiratory: reports: Shortness of Breath (INTERMITTENT 2/2 ASTHMA) Cardiac: reports: No Symptoms Reported GI: reports: Diarrhea, Nausea, Poor Fluid Intake : reports: No Symptoms Reported Musculoskeletal: reports: Back Pain Integumentary: reports: Flushing Neuro: reports: No Symptoms reported Endocrine: reports: No Symptoms Reported Hematology: reports: No Symptoms Reported Psychiatric: reports: Agitated (IRRITABLE), Depressed (AFFECT- DENIE SI/HI) Other Systems: Reviewed and Negative Patient History - Patient Medical History Hx Anemia: No Hx Asthma: Yes (Ventolin) Hx Chronic Obstructive Pulmonary Disease (COPD): No Hx Cancer: No Hx Cardiac Disorders: No Hx Congestive Heart Failure: No Hx Hypertension: No Hx Hypercholesterolemia: No Hx Pacemaker: No HX Cerebrovascular Accident: No Hx Seizures: No Hx Dementia: No Hx Diabetes: No Hx Gastrointestinal Disorders: No Hx Liver Disease: No Hx Genitourinary Disorders: No Hx Sexually Transmitted Disorders: No Hx Renal Disease (ESRD): No Hx Thyroid Disease: No Hx Human Immunodeficiency Virus (HIV): No Hx Hepatitis C: No Hx Depression: No Hx Suicide Attempt: No Hx Bipolar Disorder: No Hx Schizophrenia: No Other Medical History: DENIES - Patient Surgical History Past Surgical History: No Hx Neurologic Surgery: No Hx Cataract Extraction: No Hx Cardiac Surgery: No Hx Lung Surgery: No Hx Breast Surgery: No Hx Breast Biopsy: No Hx Abdominal Surgery: No Hx Appendectomy: No Hx Cholecystectomy: No Hx Genitourinary Surgery: No Hx Section: No Hx Orthopedic Surgery: No Hx Hysterectomy: No Anesthesia Reaction: No - PPD History Previous Implant?: Yes Documented Results: Negative w/proof Implanted On Prior R Admission?: Yes Date: 06/28/19 Results: 0 mm PPD to be Administered?: No - Smoking Cessation Smoking history: Current every day smoker Have you smoked in the past 12 months: Yes Aproximately how many cigarettes per day: 20 Cigars Per Day: 0 Hx Chewing Tobacco Use: No Initiated information on smoking cessation: Yes 'Breaking Loose' booklet given: 07/18/19 - Substance & Tx. History Hx Alcohol Use: Yes Hx Substance Use: Yes Substance Use Type: Heroin, Tranquilizers (XANAX) Hx Substance [facility] - Substances abused Heroin Substance route: Inhalation Frequency: Daily Amount used: 15-20 BAGS Age of first use: 28 Date of last use: 07/17/19 (8) Alprazolam (Xanax) Substance route: Oral Frequency: Daily Amount used: 5MG Age of first use: 32 Date of last use: 07/15/19 Admission Physical Exam S - Vital Signs Vital Signs: Vital Signs - 24 hr 07/18/19 07/18/19 21:46 21:54 Temperature 96.8 F L 96.8 F L Pulse Rate 72 72 Respiratory 16 16 Rate Blood Pressure 127/80 127/80 - Physical General Appearance: Yes: Mild Distress, Irritable, Anxious HEENTM: Yes: EOMI, Normocephalic, Normal Voice, CATALINO, Pharynx Normal Respiratory: Yes: Chest Non-Tender, Lungs Clear, Normal Breath Sounds, No Respiratory Distress, No Accessory Muscle Use Neck: Yes: No masses,lesions,Nodules, Supple, Trachea in good position Breast: Yes: Breasts Symetrical Cardiology: Yes: Regular Rate, S1, S2 Abdominal: Yes: Normal Bowel Sounds, Non Tender, Soft Genitourinary: Yes: Within Normal Limits Back: Yes: Normal Inspection Musculoskeletal: Yes: Gait Steady Extremities: Yes: Normal Capillary Refill, Normal Inspection, Normal Range of Motion, Non-Tender Neurological: Yes: Alert, Motor Strength 5/5, Depressed Affect (DENIES SI/HI) Integumentary: Yes: Cold, Other (PILORECTION) Lymphatic: Yes: Within Normal Limits - Diagnostic (1) Sedative, hypnotic or anxiolytic dependence, uncomplicated Current Visit: Yes Status: Acute (2) Substance-induced sleep disorder Current Visit: Yes Status: Suspected (3) Asthma Current Visit: Yes Status: Chronic Qualifiers: Asthma severity: mild Asthma persistence: intermittent (4) Nicotine dependence Current Visit: Yes Status: Chronic Qualifiers: Nicotine product type: cigarettes Substance use status: in withdrawal Qualified Code(s): F17.213 - Nicotine dependence, cigarettes, with withdrawal (5) Opioid dependence with withdrawal Current Visit: Yes Status: Acute (6) Substance induced mood disorder Current Visit: Yes Status: Suspected (7) Depressed affect Current Visit: Yes Status: Suspected Cleared for Admission [facility] - Detox or Rehab [facility] Level of Care: Medically Managed Detox Regimen/Protocol: Methadone/Valium Claeared for Rehab Admission: No Breathalyzer - Breathalyzer Breathalyzer: 0 Urine Drug Screen - Test Device Lot number: [id number] Expiration date: 05/03/21 - Control Is test valid?: Yes - Results Drug screen NEGATIVE: No Urine drug screen results: FEN-Fentanyl, MOP-Opiates, BZO-Benzodiazepines Inpatient Rehab Admission - Rehab Decision to Admit Inpatient rehab admission?: No
[2019-07-18] MEDS ORDERED: hydrOXYzine PAMOATE 25 MG CAPSULE (FP) PO PRN (22:53)
[2019-07-18] MEDS ORDERED: MAGNESIUM HYDROX 2400MG/30ML ORAL SUSPENSION 30 ML CUP PO PRN (22:53)
[2019-07-18] MEDS ORDERED: cloNIDine HCL 0.1 MG TABLET PO PRN (22:53)
[2019-07-18] MEDS ORDERED: MAG HYDROX/AL HYDROX/SIMETH 30 ML UNIT-DOSE CUP PO PRN (22:53)
[2019-07-18] MEDS ORDERED: NALOXONE HCL 0.4 MG/ML VIAL IM PRN (22:53)
[2019-07-18] MEDS ORDERED: BISMUTH SUBSALICYLATE 524 MG/30 ML UD PO PRN (22:53)
[2019-07-18] MEDS ORDERED: DICYCLOMINE HCL 10 MG CAPSULE PO PRN (22:53)
[2019-07-18] MEDS ORDERED: P-EPHED 60MG/TRIPROLIDI 2.5MG TABLET PO PRN (22:53)
[2019-07-18] MEDS ORDERED: METHOCARBAMOL 500 MG TABLET PO PRN (22:53)
[2019-07-18] MEDS ORDERED: ACETAMINOPHEN 325 MG TABLET (FP) PO PRN ×2 (22:53)
[2019-07-18] MEDS ORDERED: MELATONIN 5 MG TABLETS PO PRN (22:53)
[2019-07-18] MEDS ORDERED: IBUPROFEN 400 MG TABLET (FP) PO PRN (22:53)
[2019-07-18] MEDS ORDERED: guaiFENesin 200 MG/10 ML 10 ML UNIT-DOSE CUPS PO PRN (22:53)
[2019-07-18] MEDS ORDERED: MENTHOL/PHENOL 1 EACH UD MM PRN (22:53)
[2019-07-18] MEDS ORDERED: ONDANSETRON *ODT* 4 MG TABLET SL PRN (22:53)
[2019-07-18] MEDS ORDERED: MAGNESIUM CITRATE 300 ML BOTTLE PO PRN (22:53)
[2019-07-18] MEDS ORDERED: METHADONE HCL 10 MG TABLET (FOR DETOX USE ONLY) PO ONE (22:53)
[2019-07-18] MEDS ORDERED: NICOTINE POLACRILEX 4 MG GUM BUC PRN (22:53)
[2019-07-18] MEDS: ALBUTEROL SO4 HFA INHALER IH PRN (23:37)
[2019-07-18] MEDS: diazePAM 5 MG TABLET PO SCH (23:38)
[2019-07-19] MEDS: diazePAM 5 MG TABLET PO SCH ×3 (05:18→22:09)
[2019-07-19] MEDS: ALBUTEROL SO4 HFA INHALER IH PRN ×2 (08:36→14:38)
[2019-07-19] MEDS ORDERED: METHADONE HCL 10 MG TABLET (FOR DETOX USE ONLY) ONE (09:02)
[2019-07-19] MEDS ORDERED: METHADONE HCL 5 MG TABLET (FOR DETOX USE ONLY) ONE (09:02)
--- NOTE | 2019-07-19 09:45 | EKG ---
Test Reason : Blood Pressure : / mmHG Vent. Rate : 060 BPM Atrial Rate : 060 BPM P-R Int : 180 ms QRS Dur : 074 ms QT Int : 402 ms P-R-T Axes : 064 058 053 degrees QTc Int : 402 ms NORMAL SINUS RHYTHM NORMAL ECG WHEN COMPARED WITH ECG OF 26-JUN-2019 23:07, Leads misplacement been corrected Confirmed by Marcio Valdes ([id number]) on 07/19/2019 9:45:00 AM Referred By: Walter Fitch Confirmed By:Marcio Valdes
[2019-07-19] MEDS ORDERED: ALBUTEROL SO4 0.083% IH SOL 2.5 MG/3 ML VIAL.NEB. NEB PRN (09:46)
[2019-07-19] MEDS ORDERED: METHADONE (DETOX) 20 MG, METHADONE (DETOX) 5 MG PO ONE (10:00)
[2019-07-19] MEDS: NICOTINE 21 MG/24 HOURS TOPICAL PATCH TD SCH (10:27)
[2019-07-19] MEDS: PRENATAL VITAMINS W/ FOLIC ACID TABLET (FP) PO SCH (10:27)
--- NOTE | 2019-07-19 13:12 | CONSULT ---
[facility] Psychiatric Consult - Data Date of interview: 07/19/19 Admission source: [facility] Identifying data: Revisit to [facility] and admission to [address] [place] [address] for this 33 y/o male self-referred for detoxification treatment. HERIBERTO issues : heroin, nicotine, benzodiazepine (xanax). 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 Substance Abuse History: Discussed with the patient. Details in current [facility] report as follows : Smoking history: Current every day smoker. Have you smoked in the past 12 months: Yes. Aproximately how many cigarettes per day: 20. Cigars Per Day: 0. Hx Chewing Tobacco Use: No. Initiated information on smoking cessation: Yes. 'Breaking Loose' booklet given: 07/18/19. - Substance & Tx. History. Hx Alcohol Use: Yes. Hx Substance Use: Yes. Substance Use Type : Heroin, Tranquilizers (XANAX). Hx Substance Use Treatment: Yes ([facility]). - Substances abused. Heroin. Substance route: Inhalation. Frequency: Daily. Amount used: 15-20 BAGS. Age of first use: 28. Date of last use: 07/17/19 (8 ). Alprazolam (Xanax). Substance route: Oral. Frequency: Daily. Amount used: 5MG. Age of first use: 32. Date of last use: 07/15/19 Medical History: Consistent with bronchial asthma. Psychiatric History: Patient denies history of psychiatric hospitalizations, OPD care or suicide attempts. Physical/Sexual Abuse/Trauma History: Patient denies. Additional Comment: Urine drug screen results: FEN-Fentanyl, MOP-Opiates, BZO- Benzodiazepines. Noted. Mental Status Exam - Mental Status Exam Alert and Oriented to: Time, Place, Person Cognitive Function: Good Patient Appearance: Well Groomed Mood: Hopeful Affect: Appropriate, Normal Range Patient Behavior: Fatigued, Appropriate, Cooperative Speech Pattern: Clear, Appropriate Voice Loudness: Normal Thought Process: Intact, Goal Oriented Thought Disorder: Not Present Hallucinations: Denies Suicidal Ideation: Denies Homicidal Ideation: Denies Insight/Judgement: Poor Sleep: Well Appetite: Good Gait/Station: Normal Psychiatric Findings - Problem List ([place] 1, 2,3) (1) Opioid dependence with withdrawal Current Visit: Yes Status: Acute (2) Sedative, hypnotic or anxiolytic dependence, uncomplicated Current Visit: Yes Status: Acute (3) Nicotine dependence Current Visit: Yes Status: Chronic Qualifiers: Nicotine product type: cigarettes Substance use status: in withdrawal Qualified Code(s): F17.213 - Nicotine dependence, cigarettes, with withdrawal - Initial Treatment Plan Initial Treatment Plan: Psychoeducation. Sleep hygiene. Detoxification. Support. NA meetings. Observation.
--- NOTE | 2019-07-19 15:27 | PN ---
[facility] CIWA - CIWA Score Nausea/Vomitin-No Nausea/No Vomiting Muscle Tremors: 2 Anxiety: 4-Mod. Anxious/Guarded Agitation: 3 Paroxysmal Sweats: No Perspiration Orientation: 0-Oriented Tacttile Disturbances: 0-None Auditory Disturbances: 0-None Visual Disturbances: 0-None Headache: 1-Very Mild CIWA-Ar Total Score: 10 BHS COWS - Scale Resting Pulse: 0= [place] 80 or Below Sweatin= No chills or Flushing Restless Observation: 0= Sits Still Pupil Size: 1= Pupils >than Normal Bone or Joint Aches: 0= None Runny Nose/ Eye Tearin= None GI Upset > 30mins: 2= Nausea/Diarrhea Tremor Observation of Outstretched Hands: 2= Slight Tremor Visible Yawning Observation: 0= None Anxiety or Irritability: 2=Irritable/Anxious Goose Flesh Skin: 3=Piloerection COWS Score: 10 S Progress Note (SOAP) Subjective: 33 years old male admitted on 07/18/19 for benzo and opiate withdrawal sx management treating wtih valium and methadone detox regiment feeling ok today ate breakfast and lunch in day room social with peers attends behavior and psychosocial therapies groups and meetings Mr Carter is determines to maintain sober Objective: 07/19/19 15:30 Vital Signs Temperature 98.3 F 07/19/19 12:59 Pulse Rate 66 07/19/19 12:59 Respiratory Rate 17 07/19/19 12:59 Blood Pressure 130/79 07/19/19 12:59 O2 Sat by Pulse Oximetry (%) 07/19/19 15:31 lab see 06/27/19 Assessment: 07/19/19 15:31 benzo and opiate withdrawal Plan: valium and methadone regiments
[2019-07-19] MEDS: QUEtiapine FUMARATE 100 MG TABLET (FP) PO SCH (22:09)
[2019-07-19] MEDS: THIAMINE HCL 100 MG TABLET (FP) PO SCH (22:10)
[2019-07-20] MEDS: diazePAM 5 MG TABLET PO SCH ×2 (05:31→17:14)
--- NOTE | 2019-07-20 09:51 | PN ---
[facility] CIWA - CIWA Score Nausea/Vomitin-No Nausea/No Vomiting Muscle Tremors: 1-None Visible, but [place] Anxiety: 3 Agitation: 0-Normal Activity Paroxysmal Sweats: 2 Orientation: 0-Oriented Tacttile Disturbances: 0-None Auditory Disturbances: 0-None Visual Disturbances: 1-Very Mild Sensitivity Headache: 0-None Present CIWA-Ar Total Score: 7 S COWS - Scale Resting Pulse: 0= [place] 80 or Below Sweatin= No chills or Flushing Restless Observation: 0= Sits Still Pupil Size: 0= Normal to Room Light Bone or Joint Aches: 1= Mild Discomfort Runny Nose/ Eye Tearin= Nasal Congestion GI Upset > 30mins: 1= Stomach Cramp Tremor Observation of Outstretched Hands: 2= Slight Tremor Visible Yawning Observation: 0= None Anxiety or Irritability: 2=Irritable/Anxious Goose Flesh Skin: 0=Smooth Skin COWS Score: 7 [facility] Progress Note (SOAP) Subjective: 33 years old male admitted on 07/18/19 for benzo and opiate withdrawal sx management treating with valium and methadone detox regiment reports feeling tired prefers to stay in bed requests ensure that 33 years old muscular male states recent weight loss order ensure 90ml po od for satisfaction Objective: 07/20/19 09:51 Vital Signs Temperature 97.9 F 07/20/19 08:53 Pulse Rate 64 07/20/19 08:53 Respiratory Rate 18 07/20/19 08:53 Blood Pressure 127/83 07/20/19 08:53 O2 Sat by Pulse Oximetry (%) 07/20/19 09:51 lab see 06/27/19 result Assessment: 07/20/19 09:51 benzo and opiate withdrawal Plan: valim and methadone regiments
[2019-07-20] MEDS ORDERED: METHADONE HCL 10 MG TABLET (FOR DETOX USE ONLY) PO ONE (10:00)
[2019-07-20] MEDS: PRENATAL VITAMINS W/ FOLIC ACID TABLET (FP) PO SCH (10:11)
[2019-07-20] MEDS: NICOTINE 21 MG/24 HOURS TOPICAL PATCH TD SCH (10:11)
[2019-07-20] MEDS: diazePAM 5 MG TABLET PO PRN ×2 (10:13→19:58)
[2019-07-20 21:45] LABS: URINE APPEARANCE CLEAR; URINE BILIRUBIN NEGATIVE (NEGATIVE); URINE COLOR YELLOW; URINE GLUCOSE (UA) NEGATIVE (NEGATIVE); URINE KETONE NEGATIVE (NEGATIVE); URINE LEUK ESTERASE NEGATIVE (NEGATIVE); URINE NITRITE NEGATIVE (NEGATIVE); URINE PROTEIN NEGATIVE (NEGATIVE); URINE UROBILINOGEN 0.2 mg/dL (0.2-1.0)
[2019-07-20] MEDS: QUEtiapine FUMARATE 100 MG TABLET (FP) PO SCH (21:53)
[2019-07-20] MEDS: THIAMINE HCL 100 MG TABLET (FP) PO SCH (21:53)
[2019-07-21] MEDS ORDERED: diazePAM 5 MG TABLET PO ONE (06:00)
[2019-07-21] MEDS ORDERED: METHADONE HCL 5 MG TABLET (FOR DETOX USE ONLY) ONE (09:11)
[2019-07-21] MEDS ORDERED: METHADONE HCL 10 MG TABLET (FOR DETOX USE ONLY) ONE (09:11)
[2019-07-21] MEDS: diazePAM 5 MG TABLET PO PRN ×4 (09:18→22:32)
[2019-07-21] MEDS: PRENATAL VITAMINS W/ FOLIC ACID TABLET (FP) PO SCH (09:19)
[2019-07-21] MEDS: NICOTINE 21 MG/24 HOURS TOPICAL PATCH TD SCH (09:20)
[2019-07-21] MEDS ORDERED: METHADONE (DETOX) 10 MG, METHADONE (DETOX) 5 MG PO ONE (10:00)
--- NOTE | 2019-07-21 10:54 | PN ---
S CIWA - CIWA Score Nausea/Vomitin-No Nausea/No Vomiting Muscle Tremors: 1-None Visible, but [place] Anxiety: 1-Mildly Anxious Agitation: 0-Normal Activity Paroxysmal Sweats: 1-Minimal Palms Moist Orientation: 0-Oriented Tacttile Disturbances: 1-Very Mild Itch/Numbness Auditory Disturbances: 0-None Visual Disturbances: 1-Very Mild Sensitivity Headache: 0-None Present CIWA-Ar Total Score: 5 BHS COWS - Scale Resting Pulse: 0= [place] 80 or Below Sweatin= No chills or Flushing Restless Observation: 0= Sits Still Pupil Size: 1= Pupils >than Normal Bone or Joint Aches: 1= Mild Discomfort Runny Nose/ Eye Tearin= None GI Upset > 30mins: 1= Stomach Cramp Tremor Observation of Outstretched Hands: 1= Tremor [place], Not Seen Yawning Observation: 0= None Anxiety or Irritability: 1=Feels Anxious/Irritable Goose Flesh Skin: 0=Smooth Skin COWS Score: 5 S Progress Note (SOAP) Subjective: 33 years old male admitted on 07/18/19 for benzo and opiate withdrawal sx management treating with valium and methadone detox regiments feeling ok today attend behavior and psychosocial therapies groups and meetings Mr Carter determines to maintain sober discusses aftercare with staff Objective: 07/21/19 10:56 Vital Signs Temperature 98.1 F 07/21/19 09:00 Pulse Rate 68 07/21/19 09:00 Respiratory Rate 18 07/21/19 09:00 Blood Pressure 124/72 07/21/19 09:00 O2 Sat by Pulse Oximetry (%) Laboratory Last Values Urine Color Yellow 07/20/19 14:30 Urine Appearance Clear 07/20/19 14:30 Urine pH 5.0 (5.0-8.0) D 07/20/19 14:30 Ur Specific [place] 1.012 (1.010-1.035) 07/20/19 14:30 Urine Protein Negative (NEGATIVE) 07/20/19 14:30 Urine Glucose (UA) Negative (NEGATIVE) 07/20/19 14:30 Urine Ketones Negative (NEGATIVE) 07/20/19 14:30 Urine Blood Negative (NEGATIVE) 07/20/19 14:30 Urine Nitrite Negative (NEGATIVE) 07/20/19 14:30 Urine Bilirubin Negative (NEGATIVE) 07/20/19 14:30 Urine Urobilinogen 0.2 mg/dL (0.2-1.0) 07/20/19 14:30 Ur Leukocyte Esterase Negative (NEGATIVE) 07/20/19 14:30 lab noted Assessment: 07/21/19 10:56 benzo and opiate withdrawal Plan: valium and methadone regiments
[2019-07-21] MEDS: THIAMINE HCL 100 MG TABLET (FP) PO SCH (22:07)
[2019-07-21] MEDS: QUEtiapine FUMARATE 100 MG TABLET (FP) PO SCH (22:07)
[2019-07-22 09:09] VITALS: BP 119/81; PULSE 71; TEMP 96.7
[2019-07-22] MEDS: PRENATAL VITAMINS W/ FOLIC ACID TABLET (FP) PO SCH (09:13)
[2019-07-22] MEDS: NICOTINE 21 MG/24 HOURS TOPICAL PATCH TD SCH (09:14)
--- NOTE | 2019-07-22 09:18 | DS ---
[facility] Detox Discharge Summary Admission Date: 07/18/19 Discharge Date: 07/22/19 - History Present History: Opioid Dependence, Sedative Dependence Additional Comments: 33 years old male admitted on 07/18/19 for benzo and opiate withdrawal sx management treated wtih valium and methadone detox regiments patient prefers to go to [facility] today Mr Carter is alert oriented x 3 speech clearly coherently ambulating steady gait cardiac s1s2 regular rate rhythm respiratory clear lungs bilaterally on auscultation extremities full range of motion Pertinent Past History: time for discharge: 31 minutes patient prefers to leave detox one day early for [facility] availability change methadone 10 mg 10 am to current hour due to [facility] 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 - Physical Exam Results Vital Signs: Vital Signs Temperature 96.7 F L 07/22/19 08:49 Pulse Rate 71 07/22/19 08:49 Respiratory Rate 18 07/22/19 08:49 Blood Pressure 119/81 07/22/19 08:49 O2 Sat by Pulse Oximetry (%) Pertinent Admission Physical Exam Findings: benzo and opiate withdrawal Laboratory Last Values Urine Color Yellow 07/20/19 14:30 Urine Appearance Clear 07/20/19 14:30 Urine pH 5.0 (5.0-8.0) D 07/20/19 14:30 Ur Specific [place] 1.012 (1.010-1.035) 07/20/19 14:30 Urine Protein Negative (NEGATIVE) 07/20/19 14:30 Urine Glucose (UA) Negative (NEGATIVE) 07/20/19 14:30 Urine Ketones Negative (NEGATIVE) 07/20/19 14:30 Urine Blood Negative (NEGATIVE) 07/20/19 14:30 Urine Nitrite Negative (NEGATIVE) 07/20/19 14:30 Urine Bilirubin Negative (NEGATIVE) 07/20/19 14:30 Urine Urobilinogen 0.2 mg/dL (0.2-1.0) 07/20/19 14:30 Ur Leukocyte Esterase Negative (NEGATIVE) 07/20/19 14:30 lab noted - Treatment Hospital Course: Detox Protocol Followed, Detoxed Safely, Responded well, Discharged Condition Good, Rehab Referral Accepted Patient has Accepted a Rehab Referral to: [facility] - Medication Discharge Medications: Ambulatory Orders Albuterol Sulfate Inhaler - [Ventolin HFA Inhaler -] 2 puff IH Q4H PRN #1 inhaler 12/14/18 Naloxone HCl [Narcan] 4 mg NS ASDIR PRN #1 spray 07/22/19 - Diagnosis (1) Opioid dependence with withdrawal Status: Acute (2) Sedative, hypnotic or anxiolytic dependence, uncomplicated Status: Acute (3) Nicotine dependence Status: Acute Qualifiers: Nicotine product type: cigarettes Substance use status: in withdrawal Qualified Code(s): F17.213 - Nicotine dependence, cigarettes, with withdrawal (4) Substance induced mood disorder Status: Suspected (5) Asthma Status: Chronic Qualifiers: Asthma severity: mild Asthma persistence: intermittent Asthma complication type: with status asthmaticus Qualified Code(s): J45.22 - Mild intermittent asthma with status asthmaticus - AMA Did Patient Leave Against Medical Advice: No CIWA Score - CIWA Score Nausea/Vomitin-No Nausea/No Vomiting Muscle Tremors: 1-None Visible, but [place] Anxiety: 1-Mildly Anxious Agitation: 0-Normal Activity Paroxysmal Sweats: No Perspiration Orientation: 0-Oriented Tacttile Disturbances: 0-None Auditory Disturbances: 0-None Visual Disturbances: 0-None Headache: 0-None Present CIWA-Ar Total Score: 2 COWS (PN) - Opiate Withdrawal Resting Pulse: 0= [place] 80 or Below Sweatin= No chills or Flushing Restless Observation: 0= Sits Still Pupil Size: 0= Normal to Room Light Bone or Joint Aches: 0= None Runny Nose/ Eye Tearin= None GI Upset > 30mins: 1= Stomach Cramp Tremor Observation of Outstretched Hands: 1= Tremor [place], Not Seen Yawning Observation: 0= None Anxiety or Irritability: 1=Feels Anxious/Irritable Goose Flesh Skin: 0=Smooth Skin COWS Score: 3
[2019-07-22] MEDS ORDERED: METHADONE HCL 10 MG TABLET (FOR DETOX USE ONLY) PO ONE ×2 (09:30→10:00)
[2019-07-23] MEDS ORDERED: METHADONE HCL 5 MG TABLET (FOR DETOX USE ONLY) PO ONE (06:00)
== END 2019-07-22 09:41 | disposition other institution (70) | DRG 773 ==
LOC: YASAS 20:51 → Y3N 22:54
PROVIDERS: ADMIT Allergy & Immunology; ATTEND Allergy & Immunology
PROC: HZ2ZZZZ Detoxification Services for Substance Abuse Treatment (ICD-10-PCS; principal; 2019-07-18)
DX: F11.23 Opioid dependence with withdrawal (principal); F13.230 Sedative, hypnotic or anxiolytic dependence with withdrawal, uncomplicated; F17.210 Nicotine dependence, cigarettes, uncomplicated; F19.282 Other psychoactive substance dependence with psychoactive substance-induced sleep disorder; F19.24 Other psychoactive substance dependence with psychoactive substance-induced mood disorder; J45.22 Mild intermittent asthma with status asthmaticus; R45.89 Other symptoms and signs involving emotional state
CPT/HCPCS: 81003; 93005; 93010

== ENCOUNTER 2023-07-20 12:43 | Inpatient (IN) | payer OTHER ==
[2023-07-20 13:22] VITALS: BMI 29.7
[2023-07-20] MEDS ORDERED: ALBUTEROL SO4 HFA INHALER IH PRN (13:53)
[2023-07-20] MEDS ORDERED: MAGNESIUM HYDROX 2400MG/30ML ORAL SUSPENSION 30 ML CUP PO PRN (14:05)
[2023-07-20] MEDS ORDERED: NALOXONE HCL (KLOXXADO) 8 MG SPRAY NS PRN (14:05)
[2023-07-20] MEDS ORDERED: MAG HYDROX/AL HYDROX/SIMETH 30 ML UNIT-DOSE CUP PO PRN (14:05)
[2023-07-20] MEDS ORDERED: guaiFENesin 600 MG TABLET.ER (FP) PO PRN (14:05)
[2023-07-20] MEDS ORDERED: P-EPHED 60MG/TRIPROLIDI 2.5MG TABLET PO PRN (14:05)
[2023-07-20] MEDS ORDERED: POLYETHYLENE GLYCOL (HEALTHYLAX) 3350 17 GM PACKET PO PRN (14:05)
[2023-07-20] MEDS ORDERED: LOPERAMIDE HCL 2 MG CAPSULE PO PRN (14:05)
[2023-07-20] MEDS ORDERED: NALOXONE HCL 0.4 MG/ML VIAL IM PRN (14:05)
[2023-07-20] MEDS ORDERED: ACETAMINOPHEN 325 MG TABLET (FP) PO PRN (14:05)
[2023-07-20] MEDS ORDERED: IBUPROFEN 400 MG TABLET (FP) PO PRN (14:05)
[2023-07-20] MEDS ORDERED: DICYCLOMINE HCL 10 MG CAPSULE PO PRN (14:05)
[2023-07-20] MEDS ORDERED: ONDANSETRON *ODT* 4 MG TABLET SL PRN (14:05)
[2023-07-20] MEDS ORDERED: BENZONATATE 200 MG CAPSULE PO PRN (14:05)
[2023-07-20] MEDS ORDERED: IBUPROFEN 600 MG TABLET (FP) PO PRN (14:05)
[2023-07-20] MEDS ORDERED: BISMUTH SUBSALICYLATE 524 MG/30 ML PO PRN (14:05)
[2023-07-20] MEDS ORDERED: BENZOCAINE/MENTHOL (CHLORASEPTIC ) LOZENGE MM PRN (14:05)
[2023-07-20] MEDS ORDERED: levETIRAcetam 500 MG TABLET (FP) PO ONE (14:41)
[2023-07-20] MEDS ORDERED: NICOTINE 7 MG/24 HOURS TOPICAL PATCH TD ONE (14:41)
[2023-07-20] MEDS: NICOTINE 7 MG/24 HOURS TOPICAL PATCH TD SCH (14:45)
[2023-07-20] MEDS: levETIRAcetam 500 MG TABLET (FP) PO SCH (14:45)
[2023-07-20] MEDS: METHOCARBAMOL 500 MG TABLET PO PRN (15:22)
[2023-07-20] MEDS: diazePAM 5 MG TABLET PO PRN (15:22)
[2023-07-20] MEDS: diazePAM 5 MG TABLET PO SCH (17:18)
[2023-07-20] MEDS: THIAMINE HCL 100 MG TABLET (FP) PO SCH (22:35)
[2023-07-20] MEDS: MELATONIN 5 MG TABLETS PO SCH (22:36)
[2023-07-21] MEDS: methaDONE HCL 40 MG DISPERSABLE TABLET PO SCH (08:49)
[2023-07-21] MEDS: PRENATAL VITAMINS W/ FOLIC ACID TABLET (FP) PO SCH (10:36)
[2023-07-21 11:15] LABS: HEMATOCRIT 38.7 % (35.4-49); HEMOGLOBIN 12.4 GM/dL (11.7-16.9); MCH 28.5 pg (25.7-33.7); MCHC 32.2 g/dl (32.0-35.9); MEAN CELL VOLUME 88.7 fl (80-96); PLATELET COUNT 208 10^3/uL (134-434); RBC 4.36 M/mm3 (4.00-5.60); RDW 14.8 % (11.9-15.9)
[2023-07-21 11:17] LABS: POTASSIUM 3.9 mmol/L (3.5-5.1)
[2023-07-21 11:25] LABS: BLOOD UREA NITROGEN 9.3 mg/dL (7-18)
[2023-07-21 11:26] LABS: ALBUMIN 3.2 g/dl (3.4-5.0); CALCIUM 9.1 mg/dL (8.5-10.1)
[2023-07-21 11:27] LABS: CREATININE 0.8 mg/dL (0.55-1.3)
[2023-07-21 11:28] LABS: BILIRUBIN,TOTAL 0.3 mg/dL (0.2-1); TOT PROT 6.2 g/dl (6.4-8.2)
[2023-07-21] MEDS: QUEtiapine FUMARATE 100 MG TABLET (FP) PO PRN (22:20)
[2023-07-22] MEDS: diazePAM 5 MG TABLET PO SCH (05:25)
[2023-07-23] MEDS: diazePAM 5 MG TABLET PO SCH (05:20)
[2023-07-24] MEDS: diazePAM 5 MG TABLET PO ONE (05:12)
[2023-07-24 06:26] VITALS: RESP 16
[2023-07-24 09:29] VITALS: BP 137/95; PULSE 71; TEMP 97.2
== END 2023-07-24 09:52 | disposition home or self-care (01) | DRG 773 ==
LOC: YASAS 12:43 → Y6N 14:33
PROVIDERS: ADMIT Allergy & Immunology; ATTEND Surgery
PROC: HZ2ZZZZ Detoxification Services for Substance Abuse Treatment (ICD-10-PCS; principal; 2023-07-20)
DX: F13.230 Sedative, hypnotic or anxiolytic dependence with withdrawal, uncomplicated (principal); F11.20 Opioid dependence, uncomplicated; F17.210 Nicotine dependence, cigarettes, uncomplicated; F19.282 Other psychoactive substance dependence with psychoactive substance-induced sleep disorder; F41.8 Other specified anxiety disorders; J45.30 Mild persistent asthma, uncomplicated; Z86.69 Personal history of other diseases of the nervous system and sense organs; Z59.01 Sheltered homelessness
CPT/HCPCS: 36415; 80053; 85027; 86780; 87635; 87811; 93005; 93010